=== PATIENT | female | born 1960 | race Caucasian/White ===

== ENCOUNTER 2017-08-10 08:25 | Outpatient (CLI) | payer MEDICARE, MEDICAID ==
[~2017-08-10 08:25] MED LIST: ASPI81TA52 PO; ATI1T PO; CARV3.122 PO; CLON-529 PO; FENO48TA15 PO; FLEC50TA; GABA100C PO; HYDR-3686 PO; INSU100V11 SQ; INSU100V9 SQ; LISI2.5T2 PO; METF500T4 PO; NITR0.4T SL; ONDA4TAB12 PO; OXYC-150 PO; PALI6TAB PO; ROSU10TA PO; TRAZ-146 PO; VENL150C2 PO
== END 2017-08-10 09:36 | disposition home or self-care (01) ==
LOC: WOUND CARE 08:25 → EDSTATUS 08:30 → WOUND CARE 09:36
PROVIDERS: ATTEND Surgery
DX: E11.621 Type 2 diabetes mellitus with foot ulcer (principal); L97.511 Non-pressure chronic ulcer of other part of right foot limited to breakdown of skin; E11.42 Type 2 diabetes mellitus with diabetic polyneuropathy; E11.69 Type 2 diabetes mellitus with other specified complication; M86.8X7 Other osteomyelitis, ankle and foot; I25.10 Atherosclerotic heart disease of native coronary artery without angina pectoris; I10 Essential (primary) hypertension; K21.9 Gastro-esophageal reflux disease without esophagitis; E66.9 Obesity, unspecified; E78.00 Pure hypercholesterolemia, unspecified; F41.9 Anxiety disorder, unspecified; F10.10 Alcohol abuse, uncomplicated; F31.9 Bipolar disorder, unspecified; F12.10 Cannabis abuse, uncomplicated; Z89.412 Acquired absence of left great toe; Z89.421 Acquired absence of other right toe(s); Z68.37 Body mass index [BMI] 37.0-37.9, adult; Z79.82 Long term (current) use of aspirin; Z79.84 Long term (current) use of oral hypoglycemic drugs; Z79.4 Long term (current) use of insulin; Z79.899 Other long term (current) drug therapy; Z85.07 Personal history of malignant neoplasm of pancreas; Z87.891 Personal history of nicotine dependence
CPT/HCPCS: 36416; 82948; 99211; A6021; A6206

== ENCOUNTER 2017-08-16 08:48 | Day surgery (SDC) | payer MEDICARE, MEDICAID ==
[~2017-08-16 08:48] MED LIST changes: -FENO48TA15 PO; -GABA100C PO
[2017-08-16] MEDS ORDERED: LIDOcaine 2% 5ml jelly ONE (09:49)
== END 2017-08-16 10:10 | disposition home or self-care (01) ==
LOC: WOUND CARE 08:48
PROVIDERS: ATTEND Surgery
DX: E11.621 Type 2 diabetes mellitus with foot ulcer (principal); L97.511 Non-pressure chronic ulcer of other part of right foot limited to breakdown of skin; E11.69 Type 2 diabetes mellitus with other specified complication; M86.8X7 Other osteomyelitis, ankle and foot; E11.42 Type 2 diabetes mellitus with diabetic polyneuropathy; I25.10 Atherosclerotic heart disease of native coronary artery without angina pectoris; I10 Essential (primary) hypertension; K21.9 Gastro-esophageal reflux disease without esophagitis; E66.9 Obesity, unspecified; E78.00 Pure hypercholesterolemia, unspecified; F10.10 Alcohol abuse, uncomplicated; F41.9 Anxiety disorder, unspecified; F31.9 Bipolar disorder, unspecified; F12.120 Cannabis abuse with intoxication, uncomplicated; Z89.412 Acquired absence of left great toe; Z89.421 Acquired absence of other right toe(s); Z68.37 Body mass index [BMI] 37.0-37.9, adult; Z79.82 Long term (current) use of aspirin; Z79.84 Long term (current) use of oral hypoglycemic drugs; Z79.4 Long term (current) use of insulin; Z79.899 Other long term (current) drug therapy; Z85.07 Personal history of malignant neoplasm of pancreas; Z87.891 Personal history of nicotine dependence
CPT/HCPCS: 36416; 82948; 97597; A6021; A6206

== ENCOUNTER 2017-08-23 08:10 | Day surgery (SDC) | payer MEDICARE, MEDICAID ==
[~2017-08-23 08:10] MED LIST changes: -FLEC50TA
[2017-08-23] MEDS ORDERED: LIDOcaine 2% 5ml jelly ONE (09:50)
== END 2017-08-23 10:23 | disposition home or self-care (01) ==
LOC: WOUND CARE 08:10
PROVIDERS: ATTEND Surgery
DX: E11.621 Type 2 diabetes mellitus with foot ulcer (principal); L97.511 Non-pressure chronic ulcer of other part of right foot limited to breakdown of skin; F10.10 Alcohol abuse, uncomplicated; I25.10 Atherosclerotic heart disease of native coronary artery without angina pectoris; F31.9 Bipolar disorder, unspecified; E66.9 Obesity, unspecified; I10 Essential (primary) hypertension; K21.9 Gastro-esophageal reflux disease without esophagitis; E11.42 Type 2 diabetes mellitus with diabetic polyneuropathy; F12.90 Cannabis use, unspecified, uncomplicated; Z89.412 Acquired absence of left great toe; Z68.37 Body mass index [BMI] 37.0-37.9, adult; Z79.4 Long term (current) use of insulin; Z85.9 Personal history of malignant neoplasm, unspecified; Z89.421 Acquired absence of other right toe(s)
CPT/HCPCS: 82948; 97597; A6021; A6206

== ENCOUNTER 2017-08-30 08:22 | Day surgery (SDC) | payer MEDICARE, MEDICAID ==
[2017-08-30] MEDS ORDERED: LIDOcaine 2% 5ml jelly ONE (09:57)
== END 2017-08-30 10:41 | disposition home or self-care (01) ==
LOC: WOUND CARE 08:22
PROVIDERS: ATTEND Surgery
DX: E11.621 Type 2 diabetes mellitus with foot ulcer (principal); L97.511 Non-pressure chronic ulcer of other part of right foot limited to breakdown of skin; E11.42 Type 2 diabetes mellitus with diabetic polyneuropathy; I25.10 Atherosclerotic heart disease of native coronary artery without angina pectoris; I10 Essential (primary) hypertension; K21.9 Gastro-esophageal reflux disease without esophagitis; E66.9 Obesity, unspecified; E11.69 Type 2 diabetes mellitus with other specified complication; M86.8X7 Other osteomyelitis, ankle and foot; E78.00 Pure hypercholesterolemia, unspecified; F10.10 Alcohol abuse, uncomplicated; F31.9 Bipolar disorder, unspecified; F41.9 Anxiety disorder, unspecified; F12.120 Cannabis abuse with intoxication, uncomplicated; Z89.412 Acquired absence of left great toe; Z89.421 Acquired absence of other right toe(s); Z68.37 Body mass index [BMI] 37.0-37.9, adult; Z79.4 Long term (current) use of insulin; Z79.82 Long term (current) use of aspirin; Z79.84 Long term (current) use of oral hypoglycemic drugs; Z79.899 Other long term (current) drug therapy; Z85.07 Personal history of malignant neoplasm of pancreas; Z87.891 Personal history of nicotine dependence
CPT/HCPCS: 36416; 82948; 97597; A6021

== ENCOUNTER 2017-09-01 22:53 | Emergency (ER) | payer MEDICARE, MEDICAID ==
[~2017-09-01] VITALS: Ht 182.9 cm; Wt 127.0 kg
[2017-09-01] MEDS ORDERED: erythromycin ophthalmic ointment 1gm tube EACHEYE ONE (23:10)
[2017-09-01] MEDS ORDERED: fluoroscein sod 10% (100mg/ml) 5ml vial IJ ONE (23:20)
[2017-09-01] MEDS ORDERED: proparacaine 0.5% ophthalmic drops 15ml EACHEYE ONE (23:25)
[2017-09-01 23:38] VITALS: BP 142/99
== END 2017-09-01 23:35 | disposition home or self-care (01) ==
LOC: ER 22:54
DX: S05.12XA Contusion of eyeball and orbital tissues, left eye, initial encounter (principal); S05.02XA Injury of conjunctiva and corneal abrasion without foreign body, left eye, initial encounter; G89.29 Other chronic pain; E11.9 Type 2 diabetes mellitus without complications; I10 Essential (primary) hypertension; E78.00 Pure hypercholesterolemia, unspecified; F31.9 Bipolar disorder, unspecified; Z88.1 Allergy status to other antibiotic agents; Z91.018 Allergy to other foods; Z79.82 Long term (current) use of aspirin; Z79.4 Long term (current) use of insulin; X58.XXXA Exposure to other specified factors, initial encounter; Y93.89 Activity, other specified; Y92.89 Other specified places as the place of occurrence of the external cause; Y99.8 Other external cause status
CPT/HCPCS: 99284

== ENCOUNTER 2017-09-06 08:15 | Day surgery (SDC) | payer MEDICARE, MEDICAID ==
[2017-09-06] MEDS ORDERED: LIDOcaine 2% 5ml jelly ONE (09:49)
[2017-09-09] MEDS ORDERED: LORA1TAB PO ×2 (14:22)
[2017-09-09] MEDS ORDERED: INSU100V11 SQ (14:22)
[2017-09-09] MEDS ORDERED: PALI9TAB PO (14:22)
[2017-09-09] MEDS ORDERED: DILT120C51 PO (14:22)
[2017-09-09] MEDS ORDERED: FENO145T19 PO (14:22)
== END 2017-09-06 10:54 | disposition home or self-care (01) ==
LOC: WOUND CARE 08:15
PROVIDERS: ATTEND Surgery
DX: E11.621 Type 2 diabetes mellitus with foot ulcer (principal); L97.511 Non-pressure chronic ulcer of other part of right foot limited to breakdown of skin; I25.10 Atherosclerotic heart disease of native coronary artery without angina pectoris; E66.9 Obesity, unspecified; I10 Essential (primary) hypertension; K21.9 Gastro-esophageal reflux disease without esophagitis; E11.42 Type 2 diabetes mellitus with diabetic polyneuropathy; F10.10 Alcohol abuse, uncomplicated; F31.9 Bipolar disorder, unspecified; F12.90 Cannabis use, unspecified, uncomplicated; Z89.412 Acquired absence of left great toe; Z68.37 Body mass index [BMI] 37.0-37.9, adult; Z79.4 Long term (current) use of insulin; Z85.9 Personal history of malignant neoplasm, unspecified; Z89.421 Acquired absence of other right toe(s)
CPT/HCPCS: 36416; 82948; 97597; A6021; A6206

== ENCOUNTER 2017-09-13 08:50 | Day surgery (SDC) | payer MEDICARE, MEDICAID ==
[~2017-09-13] VITALS: Ht 182.9 cm; Wt 125.4 kg
[~2017-09-13 08:50] MED LIST changes: -ATI1T PO; -CARV3.122 PO; +DILT120C51 PO; +FENO145T19 PO; +LORA1TAB PO; -ONDA4TAB12 PO; -OXYC-150 PO; -PALI6TAB PO; +PALI9TAB PO; +ceFAZolin inj. 3,000 MG in normal saline 100ml IV soln 100 ML IV ONE; +famotidine 20mg tablet PO ONE; +ringers solution, lacted 1,000 ML IV SCH
[2017-09-13] MEDS ORDERED: LIDOcaine 1% (10mg/ml) 2ml vial ONE (09:24)
[2017-09-13 09:30] VITALS: BP 164/107
[2017-09-13] MEDS ORDERED: ROSU10TA PO (09:43)
[2017-09-13 10:40] LABS: BASOPHILS % (AUTO) 0.3 % (0-1); EOSINOPHILS # (AUTO) 0.7 X10'3 (0-0.9); EOSINOPHILS % (AUTO) 8.7 % (0-6); HEMATOCRIT 37.8 % (35.0-45.0); HEMOGLOBIN 12.7 g/dl (12.0-16.0); LYMPHOCYTES % (AUTO) 25.1 % (21-51); MEAN CORPUSCULAR HEMOGLOBIN 29.5 PG (27.0-31.0); MEAN CORPUSCULAR HGB CONC 33.6 % (33.0-36.5); MEAN CORPUSCULAR VOLUME 87.8 FL (78-98); MEAN PLATELET VOLUME 8.4 FL (7.4-10.4); MONOCYTES # (AUTO) 0.8 X10'3 (0-0.9); MONOCYTES % (AUTO) 9.6 % (2-12); NEUTROPHILS # (AUTO) 4.4 X10'3 (1.8-7.7); NEUTROPHILS % (AUTO) 56.3 % (42-75); PLATELET COUNT 428 X10'3 (140-440); RED BLOOD COUNT 4.31 X10'6 (4.20-5.60); RED CELL DISTRIBUTION WIDTH 14.5 % (11.5-14.5); WHITE BLOOD COUNT 7.8 X10'3 (4.5-11.0)
[2017-09-13 10:54] LABS: ALANINE AMINOTRANSFERASE 17 U/L (12-78); ALBUMIN 2.7 G/DL (3.4-5.0); ALBUMIN/GLOBULIN RATIO 0.8 (1.1-1.5); ALKALINE PHOSPHATASE 54 IU/L (46-116); ANION GAP 3 (8-16); ASPARTATE AMINO TRANSFERASE 16 U/L (10-37); BILIRUBIN,TOTAL 0.2 MG/DL (0.1-1.0); BLOOD UREA NITROGEN 19 MG/DL (7-18); CALCIUM 9.2 MG/DL (8.5-10.1); CHLORIDE 107 MMOL/L (99-107); GLUCOSE 199 MG/DL (70-104); POTASSIUM 4.5 MMOL/L (3.5-5.1); SODIUM 141 MMOL/L (135-145); TOTAL PROTEIN 6.3 G/DL (6.4-8.2); eGFR 58 ML/MIN
[2017-09-13] MEDS ORDERED: LIDOcaine 1% 30ml vial 30 ML ONE (11:23)
[2017-09-13] MEDS ORDERED: povidone-iodine 10% topical ointment 28.4gm TP ONE (11:23)
[2017-09-13] MEDS ORDERED: ringers solution, lacted 1,000 ML IV SCH (11:27)
[2017-09-13] MEDS ORDERED: ondansetron/PF 4mg/2ml inj IV PRN (11:30)
[2017-09-13] MEDS ORDERED: meperidine/PF 25mg/ml syringe IV PRN ×3 (11:30)
[2017-09-13] MEDS ORDERED: morphine 2 MG/ML inj. syringe IV PRN ×2 (11:30)
[2017-09-13] MEDS ORDERED: proCHLORperazine 10 MG/2 ml inj IV PRN (11:30)
[2017-09-13] MEDS ORDERED: fentaNYL/PF 50MCG/1 ML 2ML syringe ONE (11:30)
[2017-09-13] MEDS ORDERED: midazolam 2 mg/2 ml injection ONE ×2 (11:31)
[2017-09-13] MEDS ORDERED: LIDOcaine 2% (20mg/ml) 5ml vial ONE (11:35)
[2017-09-13] MEDS ORDERED: propofol inj 20 ML IV ONE (11:35)
[2017-09-13 11:42] LABS: PLATELET ESTIMATE NORMAL; TOTAL CELLS COUNTED 100
[2017-09-13 11:51] LABS: ACANTHOCYTES 1+; BURR CELLS 1+; SCHISTOCYTES FEW
[2017-09-13 11:52] LABS: ELLIPTOCYTES FEW
[2017-09-13 11:53] LABS: POIKILOCYTOSIS 2+
[2017-09-13 12:20] VITALS: BP 151/96
[2017-09-13 12:30] VITALS: BP 150/94
[2017-09-13 12:40] VITALS: BP 147/76
[2017-09-13 12:50] VITALS: BP 150/74
[2017-09-13 13:00] VITALS: BP 150/74
== END 2017-09-13 13:00 | disposition home or self-care (01) ==
LOC: PAS 08:50
PROVIDERS: ATTEND Surgery
DX: E11.69 Type 2 diabetes mellitus with other specified complication (principal); M86.9 Osteomyelitis, unspecified; I25.10 Atherosclerotic heart disease of native coronary artery without angina pectoris; I10 Essential (primary) hypertension; F32.9 Major depressive disorder, single episode, unspecified; Z85.07 Personal history of malignant neoplasm of pancreas; Z91.013 Allergy to seafood; Z88.1 Allergy status to other antibiotic agents; Z91.048 Other nonmedicinal substance allergy status; Z87.891 Personal history of nicotine dependence; E66.9 Obesity, unspecified; Z68.37 Body mass index [BMI] 37.0-37.9, adult
CPT/HCPCS: 28825; 36415; 80053; 82948; 85025; A4615; A6222; A6446; A6449; J0690; J2001; J2250; J2704; J3010; J3490; J7030; J7120; 88305; A7000

== ENCOUNTER 2017-09-20 08:15 | Outpatient (CLI) | payer MEDICARE, MEDICAID ==
[~2017-09-20 08:15] MED LIST changes: -ceFAZolin inj. 3,000 MG in normal saline 100ml IV soln 100 ML IV ONE; -famotidine 20mg tablet PO ONE; -ringers solution, lacted 1,000 ML IV SCH
[2017-09-20] MEDS ORDERED: mupirocin 2% ointment 22GM ONE (10:22)
== END 2017-09-20 10:35 | disposition home or self-care (01) ==
LOC: WOUND CARE 08:15 → EDSTATUS 08:30 → WOUND CARE 10:35
PROVIDERS: ATTEND Surgery
DX: E11.621 Type 2 diabetes mellitus with foot ulcer (principal); L97.511 Non-pressure chronic ulcer of other part of right foot limited to breakdown of skin; I25.10 Atherosclerotic heart disease of native coronary artery without angina pectoris; E66.9 Obesity, unspecified; I10 Essential (primary) hypertension; K21.9 Gastro-esophageal reflux disease without esophagitis; E11.42 Type 2 diabetes mellitus with diabetic polyneuropathy; F10.10 Alcohol abuse, uncomplicated; F31.9 Bipolar disorder, unspecified; F12.90 Cannabis use, unspecified, uncomplicated; Z89.412 Acquired absence of left great toe; Z68.37 Body mass index [BMI] 37.0-37.9, adult; Z79.4 Long term (current) use of insulin; Z85.9 Personal history of malignant neoplasm, unspecified; Z89.421 Acquired absence of other right toe(s)
CPT/HCPCS: 36416; 82948; 99215; A6222

== ENCOUNTER 2017-09-27 08:15 | Outpatient (CLI) | payer MEDICARE, MEDICAID | END 2017-09-27 09:34 | disposition home or self-care (01) | LOC: WOUND CARE 08:15 → EDSTATUS 08:30 → WOUND CARE 09:34 | PROVIDERS: ATTEND Surgery | DX: T81.89XD Other complications of procedures, not elsewhere classified, subsequent encounter (principal); E11.621 Type 2 diabetes mellitus with foot ulcer; L97.511 Non-pressure chronic ulcer of other part of right foot limited to breakdown of skin; E11.42 Type 2 diabetes mellitus with diabetic polyneuropathy; I25.10 Atherosclerotic heart disease of native coronary artery without angina pectoris; E66.9 Obesity, unspecified; I10 Essential (primary) hypertension; K21.9 Gastro-esophageal reflux disease without esophagitis; F10.10 Alcohol abuse, uncomplicated; F31.9 Bipolar disorder, unspecified; F12.90 Cannabis use, unspecified, uncomplicated; Z89.412 Acquired absence of left great toe; Z68.37 Body mass index [BMI] 37.0-37.9, adult; Z79.4 Long term (current) use of insulin; Z85.9 Personal history of malignant neoplasm, unspecified; Z89.421 Acquired absence of other right toe(s); Y83.8 Other surgical procedures as the cause of abnormal reaction of the patient, or of later complication, without mention of misadventure at the time of the procedure | CPT/HCPCS: 36416; 82948; 99215; A6250 ==

== ENCOUNTER 2017-09-29 00:01 | Emergency (ER) | payer MEDICARE, MEDICAID ==
[~2017-09-29] VITALS: Ht 6038.7 cm; Wt 126.8 kg
[2017-09-29] MEDS ORDERED: ketorolac trometh inj. 60 MG/2 ML VIAL IM ONE (00:20)
[2017-09-29 00:48] LABS: BASOPHILS % (AUTO) 0.5 % (0-1); EOSINOPHILS # (AUTO) 0.6 X10'3 (0-0.9); EOSINOPHILS % (AUTO) 6.2 % (0-6); HEMATOCRIT 40.8 % (35.0-45.0); HEMOGLOBIN 13.4 g/dl (12.0-16.0); LYMPHOCYTES # (AUTO) 3.9 X10'3 (1.1-4.8); MEAN CORPUSCULAR HEMOGLOBIN 28.9 PG (27.0-31.0); MEAN CORPUSCULAR VOLUME 87.5 FL (78-98); MEAN PLATELET VOLUME 8.9 FL (7.4-10.4); MONOCYTES # (AUTO) 1.1 X10'3 (0-0.9); MONOCYTES % (AUTO) 11.5 % (2-12); NEUTROPHILS # (AUTO) 3.6 X10'3 (1.8-7.7); NEUTROPHILS % (AUTO) 38.8 % (42-75); RED BLOOD COUNT 4.66 X10'6 (4.20-5.60); RED CELL DISTRIBUTION WIDTH 13.6 % (11.5-14.5); WHITE BLOOD COUNT 9.2 X10'3 (4.5-11.0)
[2017-09-29 00:54] LABS: INR 0.9 INR; PROTHROMBIN TIME 9.5 SECONDS (9.0-12.0)
[2017-09-29 01:01] LABS: ANION GAP 5 (8-16); BLOOD UREA NITROGEN 21 MG/DL (7-18); BUN/CREATININE RATIO 16.4 (6.6-38.0); CALCIUM 9.5 MG/DL (8.5-10.1); CHLORIDE 103 MMOL/L (99-107); CREATININE 1.28 MG/DL (0.40-0.90); GLUCOSE 145 MG/DL (70-104); POTASSIUM 3.9 MMOL/L (3.5-5.1); SODIUM 141 MMOL/L (135-145); TOTAL CARBON DIOXIDE 32.7 MMOL/L (24-32); eGFR 43 ML/MIN
[2017-09-29 01:02] LABS: ALANINE AMINOTRANSFERASE 24 U/L (12-78); ALBUMIN 3.1 G/DL (3.4-5.0); ALBUMIN/GLOBULIN RATIO 0.8 (1.1-1.5); ALKALINE PHOSPHATASE 95 IU/L (46-116); ASPARTATE AMINO TRANSFERASE 14 U/L (10-37); BILIRUBIN,TOTAL 0.2 MG/DL (0.1-1.0); LIPASE 169 U/L (73-393)
[2017-09-29 01:06] LABS: PLATELET COUNT 435 X10'3 (140-440)
[2017-09-29 01:40] VITALS: BP 179/80
[2017-09-29 01:43] LABS: CLARITY,URINE CLEAR (Clear); COLOR,URINE YELLOW (Yellow); GLUCOSE, URINE 100 mg/dl (Neg); KETONES,URINE NEGATIVE (Neg); LEUKOCYTE ESTERASE ,URINE NEGATIVE (Neg); NITRITES, URINE NEGATIVE (Neg); OCCULT BLOOD,URINE NEGATIVE (Neg); PROTEIN,URINE >=300 mg/dl (Neg); UROBILINOGEN,URINE 0.2 E.U/dL (0.2-1.0)
[2017-09-29 01:50] LABS: UA COLLECTION TYPE CLN CATCH MIDSTREAM
[2017-09-29 01:55] LABS: BACTERIA,URINE FEW /HPF (Neg); MUCUS STRANDS NONE SEEN /LPF (Neg); RBC,URINE NONE SEEN /HPF (0-2); SQUAMOUS EPITHELIAL CELL,UR NONE SEEN /LPF (FEW); WBC,URINE 0-4 /HPF (0-4)
== END 2017-09-29 01:41 | disposition home or self-care (01) ==
LOC: ER 00:01
DX: K59.00 Constipation, unspecified (principal); E78.00 Pure hypercholesterolemia, unspecified; I10 Essential (primary) hypertension; E11.9 Type 2 diabetes mellitus without complications; F12.10 Cannabis abuse, uncomplicated; Z88.1 Allergy status to other antibiotic agents; Z91.018 Allergy to other foods; Z79.4 Long term (current) use of insulin; I25.10 Atherosclerotic heart disease of native coronary artery without angina pectoris
CPT/HCPCS: 36415; 74176; 80053; 81001; 83690; 85025; 85610; 96372; 99285; J1885

== ENCOUNTER 2017-10-11 10:19 | Outpatient (CLI) | payer MEDICARE, MEDICAID | END 2017-10-11 11:33 | disposition home or self-care (01) | LOC: WOUND CARE 10:19 | PROVIDERS: ATTEND Surgery | DX: T81.89XD Other complications of procedures, not elsewhere classified, subsequent encounter (principal); E11.621 Type 2 diabetes mellitus with foot ulcer; L97.511 Non-pressure chronic ulcer of other part of right foot limited to breakdown of skin; E11.42 Type 2 diabetes mellitus with diabetic polyneuropathy; I25.10 Atherosclerotic heart disease of native coronary artery without angina pectoris; E66.9 Obesity, unspecified; I10 Essential (primary) hypertension; K21.9 Gastro-esophageal reflux disease without esophagitis; F10.10 Alcohol abuse, uncomplicated; F31.9 Bipolar disorder, unspecified; F12.90 Cannabis use, unspecified, uncomplicated; Z89.412 Acquired absence of left great toe; Z68.37 Body mass index [BMI] 37.0-37.9, adult; Z79.4 Long term (current) use of insulin; Z85.9 Personal history of malignant neoplasm, unspecified; Z89.421 Acquired absence of other right toe(s); Y83.8 Other surgical procedures as the cause of abnormal reaction of the patient, or of later complication, without mention of misadventure at the time of the procedure | CPT/HCPCS: 36416; 82948; 99214 ==

== ENCOUNTER 2017-11-06 19:49 | Emergency (ER) | payer MEDICARE, MEDICAID ==
[~2017-11-06] VITALS: Ht 182.9 cm; Wt 127.5 kg
[~2017-11-06 19:49] MED LIST changes: -FENO145T19 PO; +FENO145T36 PO
[2017-11-06 19:56] VITALS: BP 154/86
== END 2017-11-06 22:49 | disposition home or self-care (01) ==
LOC: ER 19:50
DX: S60.221A Contusion of right hand, initial encounter (principal); E78.00 Pure hypercholesterolemia, unspecified; I10 Essential (primary) hypertension; E11.9 Type 2 diabetes mellitus without complications; G89.29 Other chronic pain; F12.10 Cannabis abuse, uncomplicated; Z79.4 Long term (current) use of insulin; W23.1XXA Caught, crushed, jammed, or pinched between stationary objects, initial encounter; Y93.G3 Activity, cooking and baking; Y92.89 Other specified places as the place of occurrence of the external cause; Y99.8 Other external cause status
CPT/HCPCS: 29125; 73130; 99284

== ENCOUNTER 2017-11-29 10:05 | Day surgery (SDC) | payer MEDICARE, MEDICAID ==
[2017-11-29] MEDS ORDERED: CLON-529 PO (10:29)
[2017-11-29] MEDS ORDERED: LORA1TAB PO (10:30)
[2017-11-29] MEDS ORDERED: LAMO25TA94 PO (10:31)
[2017-12-01] MEDS ORDERED: OXYC-150 PO (15:14)
== END 2017-11-29 10:58 | disposition home or self-care (01) ==
LOC: WOUND CARE 10:05
PROVIDERS: ATTEND Surgery
DX: E11.621 Type 2 diabetes mellitus with foot ulcer (principal); L97.511 Non-pressure chronic ulcer of other part of right foot limited to breakdown of skin; E11.42 Type 2 diabetes mellitus with diabetic polyneuropathy; E11.65 Type 2 diabetes mellitus with hyperglycemia; I25.10 Atherosclerotic heart disease of native coronary artery without angina pectoris; E66.9 Obesity, unspecified; I10 Essential (primary) hypertension; K21.9 Gastro-esophageal reflux disease without esophagitis; F10.10 Alcohol abuse, uncomplicated; F31.9 Bipolar disorder, unspecified; F12.90 Cannabis use, unspecified, uncomplicated; Z89.412 Acquired absence of left great toe; Z68.37 Body mass index [BMI] 37.0-37.9, adult; Z79.4 Long term (current) use of insulin; Z85.9 Personal history of malignant neoplasm, unspecified; Z89.421 Acquired absence of other right toe(s); Y83.8 Other surgical procedures as the cause of abnormal reaction of the patient, or of later complication, without mention of misadventure at the time of the procedure
CPT/HCPCS: 36416; 82948; 97597; A6021; A6206; A6212

== ENCOUNTER 2018-01-08 04:20 | Emergency (ER) | payer MEDICARE, MEDICAID ==
[~2018-01-08] VITALS: Ht 182.9 cm; Wt 127.3 kg
[~2018-01-08 04:20] MED LIST changes: +ENOX40DI11 SQ; +LAMO25TA94 PO; -METF500T4 PO; +METF500T6 PO; +OXYC-150 PO; -TRAZ-146 PO
[2018-01-08] MEDS ORDERED: normal saline 1000ML IV soln IVB ONE (04:40)
[2018-01-08 04:55] LABS: BASOPHILS # (AUTO) 0.1 X10'3 (0-0.2); BASOPHILS % (AUTO) 0.8 % (0-1); EOSINOPHILS # (AUTO) 0.5 X10'3 (0-0.9); EOSINOPHILS % (AUTO) 5.6 % (0-6); HEMATOCRIT 41.9 % (35.0-45.0); HEMOGLOBIN 13.9 g/dl (12.0-16.0); LYMPHOCYTES # (AUTO) 3.5 X10'3 (1.1-4.8); MEAN CORPUSCULAR HEMOGLOBIN 29.4 PG (27.0-31.0); MEAN CORPUSCULAR HGB CONC 33.2 % (33.0-36.5); MEAN CORPUSCULAR VOLUME 88.7 FL (78-98); MEAN PLATELET VOLUME 8.8 FL (7.4-10.4); MONOCYTES % (AUTO) 10.6 % (2-12); NEUTROPHILS # (AUTO) 4.6 X10'3 (1.8-7.7); PLATELET COUNT 400 X10'3 (140-440); RED BLOOD COUNT 4.72 X10'6 (4.20-5.60); RED CELL DISTRIBUTION WIDTH 14.8 % (11.5-14.5); WHITE BLOOD COUNT 9.8 X10'3 (4.5-11.0)
[2018-01-08] MEDS ORDERED: LORazepam 2 mg/ml vial IV ONE (04:55)
[2018-01-08 05:07] LABS: PARTIAL THROMBOPLASTIN TIME 26 SECONDS (22-32); PROTHROMBIN TIME 9.9 SECONDS (9.0-12.0)
[2018-01-08 05:10] LABS: ALANINE AMINOTRANSFERASE 20 U/L (12-78); ALBUMIN/GLOBULIN RATIO 0.7 (1.1-1.5); ALKALINE PHOSPHATASE 91 IU/L (46-116); ANION GAP 4 (8-16); ASPARTATE AMINO TRANSFERASE 17 U/L (10-37); BILIRUBIN,TOTAL 0.2 MG/DL (0.1-1.0); BLOOD UREA NITROGEN 22 MG/DL (7-18); BUN/CREATININE RATIO 17.7 (6.6-38.0); CALCIUM 9.6 MG/DL (8.5-10.1); CHLORIDE 107 MMOL/L (99-107); CREATININE 1.24 MG/DL (0.40-0.90); ETHANOL < 0.010 GM/DL (0.0-0.010); GLUCOSE 135 MG/DL (70-104); POTASSIUM 3.8 MMOL/L (3.5-5.1); SODIUM 141 MMOL/L (135-145); TOTAL CARBON DIOXIDE 30.1 MMOL/L (24-32); TOTAL PROTEIN 7.1 G/DL (6.4-8.2); eGFR 45 ML/MIN
[2018-01-08] MEDS ORDERED: diltiazem 5mg/ml 5ml inj. IV ONE (05:25)
[2018-01-08 05:48] LABS: URINE AMPHETAMINE SCREEN NEGATIVE (Neg); URINE BARBITUATE SCREEN NEGATIVE (Neg); URINE BENZODIAZEPINES SCREEN NEGATIVE (Neg); URINE CANNABINOID SCREEN NEGATIVE (Neg); URINE COCAINE SCREEN NEGATIVE (Neg); URINE METHADONE SCREEN NEGATIVE (Neg); URINE OPIATE SCREEN NEGATIVE (Neg); URINE PHENCYCLIDINE SCREEN NEGATIVE (Neg)
[2018-01-08 06:07] VITALS: BP 146/83
== END 2018-01-08 06:13 | disposition home or self-care (01) ==
LOC: ER 04:20
DX: R00.2 Palpitations (principal); E78.00 Pure hypercholesterolemia, unspecified; I10 Essential (primary) hypertension; E11.9 Type 2 diabetes mellitus without complications; G89.29 Other chronic pain; I47.1 Supraventricular tachycardia; Z79.4 Long term (current) use of insulin; Z79.899 Other long term (current) drug therapy; Z79.82 Long term (current) use of aspirin; Z88.8 Allergy status to other drugs, medicaments and biological substances
CPT/HCPCS: 36415; 71045; 80053; 80305; 80320; 84484; 85025; 85610; 85730; 93005; 96374; 99285; J2060; J7030; J3490

== ENCOUNTER 2018-04-16 14:52 | Emergency (ER) | payer MEDICARE, MEDICAID ==
[~2018-04-16] VITALS: Ht 182.9 cm; Wt 121.0 kg
[~2018-04-16 14:52] MED LIST changes: -CLON-529 PO; -ENOX40DI11 SQ; +METF-950 PO; -METF500T6 PO; -NITR0.4T SL; -OXYC-150 PO
[2018-04-16 15:06] VITALS: BP 161/95
[2018-04-16] MEDS ORDERED: ketorolac trometh. 30mg/ml inj. IM ONE (15:35)
== END 2018-04-16 16:05 | disposition home or self-care (01) ==
LOC: ER 14:54
DX: S46.911A Strain of unspecified muscle, fascia and tendon at shoulder and upper arm level, right arm, initial encounter (principal); S54.01XA Injury of ulnar nerve at forearm level, right arm, initial encounter; F12.90 Cannabis use, unspecified, uncomplicated; E78.00 Pure hypercholesterolemia, unspecified; I10 Essential (primary) hypertension; E11.9 Type 2 diabetes mellitus without complications; G89.29 Other chronic pain; Z98.890 Other specified postprocedural states; Z88.1 Allergy status to other antibiotic agents; Z91.018 Allergy to other foods; Z79.82 Long term (current) use of aspirin; Z79.899 Other long term (current) drug therapy; X50.1XXA Overexertion from prolonged static or awkward postures, initial encounter; Y93.89 Activity, other specified; Y92.89 Other specified places as the place of occurrence of the external cause; Y99.9 Unspecified external cause status
CPT/HCPCS: 99282; A4565; J1885

== ENCOUNTER 2018-04-20 07:10 | Day surgery (SDC) | payer MEDICARE, MEDICAID ==
[2018-04-14 16:14] LABS: BASOPHILS % (AUTO) 0.1 % (0-1); EOSINOPHILS # (AUTO) 0.4 X10'3 (0-0.9); EOSINOPHILS % (AUTO) 5.9 % (0-6); LYMPHOCYTES # (AUTO) 2.2 X10'3 (1.1-4.8); LYMPHOCYTES % (AUTO) 29.1 % (21-51); MEAN CORPUSCULAR HEMOGLOBIN 29.3 PG (27.0-31.0); MEAN CORPUSCULAR HGB CONC 32.9 % (33.0-36.5); MEAN PLATELET VOLUME 8.6 FL (7.4-10.4); MONOCYTES # (AUTO) 0.7 X10'3 (0-0.9); MONOCYTES % (AUTO) 9.4 % (2-12); NEUTROPHILS # (AUTO) 4.2 X10'3 (1.8-7.7); NEUTROPHILS % (AUTO) 55.5 % (42-75); PRE OP HEMATOCRIT 38.5 % (35.0-45.0); PRE OP HEMOGLOBIN 12.7 g/dL (12.0-16.0); PRE OP PLATELET COUNT 429 X10'3 (140-440); RED BLOOD COUNT 4.33 X10'6 (4.20-5.60); RED CELL DISTRIBUTION WIDTH 14.9 % (11.5-14.5)
[2018-04-14 16:16] LABS: CLARITY,URINE Clear (Clear); COLOR,URINE Yellow (Yellow); GLUCOSE, URINE >=1000 mg/dl (Neg); KETONES,URINE Negative (Neg); LEUKOCYTE ESTERASE ,URINE Negative (Neg); NITRITES, URINE Negative (Neg); OCCULT BLOOD,URINE Negative (Neg); PH,URINE 5.5 (4.8-8.0); PROTEIN,URINE 100 mg/dl (Neg)
[2018-04-14 16:17] LABS: UA COLLECTION TYPE NON-SPECIFIED
[2018-04-14 16:28] LABS: ALBUMIN 2.9 G/DL (3.4-5.0); ALBUMIN/GLOBULIN RATIO 0.8 (1.1-1.5); ALKALINE PHOSPHATASE 82 IU/L (46-116); BLOOD UREA NITROGEN 22 MG/DL (7-18); BUN/CREATININE RATIO 17.7 (6.6-38.0); CALCIUM 9.6 MG/DL (8.5-10.1); CHLORIDE 103 MMOL/L (99-107); CREATININE 1.24 MG/DL (0.40-0.90); PRE OP ALT 23 U/L (30-65); PRE OP ANION GAP 5 (8-16); PRE OP AST 15 U/L (10-37); PRE OP BILIRUB, TOTAL 0.2 MG/DL (0.0-1.0); PRE OP POTASSIUM 4.6 MMOL/L (3.4-5.1); PRE OP SODIUM 137 MMOL/L (135-145); TOTAL CARBON DIOXIDE 29.5 MMOL/L (24-32); TOTAL PROTEIN 6.5 G/DL (6.4-8.2); eGFR 45 ML/MIN
[2018-04-14 16:31] LABS: PRE OP GLUCOSE 308 MG/DL (70-104)
[2018-04-14 16:33] LABS: BACTERIA,URINE NONE SEEN /HPF (Neg); MUCUS STRANDS NONE SEEN /LPF (Neg); RBC,URINE NONE SEEN /HPF (0-2); SQUAMOUS EPITHELIAL CELL,UR NONE SEEN /LPF (FEW); WBC,URINE NONE SEEN /HPF (0-4)
[~2018-04-20] VITALS: Ht 182.9 cm; Wt 127.3 kg
[2018-04-20] VITALS (7 sets, daily range): BP systolic 117–130; BP diastolic 64–73
[~2018-04-20 07:10] MED LIST changes: +Cefazolin 2GM/50ML dext iso,osmotic IVPB IV ONE; +VANCOMYCIN INJ 1000 MG in NORMAL SALINE 250ml IV.SOLN IV ONE; +famotidine 20mg tablet PO ONE; +ringers solution, lacted 1,000 ML IV SCH
[2018-04-20] MEDS ORDERED: LIDOcaine 1% (10mg/ml) 2ml vial ONE (07:39)
[2018-04-20] MEDS ORDERED: ringers solution, lacted 1,000 ML IV SCH (08:19)
[2018-04-20] MEDS ORDERED: proCHLORperazine 10 MG/2 ml inj IV PRN (08:20)
[2018-04-20] MEDS ORDERED: ondansetron/PF 4mg/2ml inj IV PRN (08:20)
[2018-04-20] MEDS ORDERED: morphine 4 MG/ML inj SYRINge IV PRN ×2 (08:20)
[2018-04-20] MEDS ORDERED: meperidine/PF 25mg/ml syringe IV PRN ×3 (08:20)
[2018-04-20] MEDS ORDERED: BUPIVAcaine/PF 2.5mg/ml (0.25%) 10ml vial ONE (08:47)
[2018-04-20] MEDS ORDERED: desflurane 240ml liquid inh. IH ONE (09:21)
[2018-04-20] MEDS ORDERED: dexamethasone sod phosphate 10mg/ml inj ONE (09:21)
[2018-04-20] MEDS ORDERED: midazolam 2 mg/2 ml injection ONE (09:26)
[2018-04-20] MEDS ORDERED: fentaNYL/PF 50MCG/1 ML 2ML syringe ONE (09:26)
[2018-04-20] MEDS ORDERED: propofol inj 20 ML IV ONE (09:28)
[2018-04-20] MEDS ORDERED: LIDOcaine 2% (20mg/ml) 5ml vial ONE (09:28)
[2018-04-20] MEDS ORDERED: ondansetron/PF 4mg/2ml inj ONE (10:41)
== END 2018-04-20 11:33 | disposition home or self-care (01) ==
LOC: PAS 07:10
PROVIDERS: ATTEND Orthopaedic Surgery
DX: T84.84XA Pain due to internal orthopedic prosthetic devices, implants and grafts, initial encounter (principal); G89.18 Other acute postprocedural pain; Y83.8 Other surgical procedures as the cause of abnormal reaction of the patient, or of later complication, without mention of misadventure at the time of the procedure; Y92.89 Other specified places as the place of occurrence of the external cause; E11.59 Type 2 diabetes mellitus with other circulatory complications; E78.5 Hyperlipidemia, unspecified; E66.01 Morbid (severe) obesity due to excess calories; M17.11 Unilateral primary osteoarthritis, right knee; F31.9 Bipolar disorder, unspecified; I10 Essential (primary) hypertension; G47.33 Obstructive sleep apnea (adult) (pediatric); I44.0 Atrioventricular block, first degree; E78.00 Pure hypercholesterolemia, unspecified; Z79.84 Long term (current) use of oral hypoglycemic drugs; Z87.891 Personal history of nicotine dependence; Z90.81 Acquired absence of spleen; Z85.07 Personal history of malignant neoplasm of pancreas; Z90.411 Acquired partial absence of pancreas; Z79.01 Long term (current) use of anticoagulants; Z92.21 Personal history of antineoplastic chemotherapy; Z86.79 Personal history of other diseases of the circulatory system; Z79.82 Long term (current) use of aspirin; Z79.4 Long term (current) use of insulin; Z88.1 Allergy status to other antibiotic agents; Z91.013 Allergy to seafood; Z68.38 Body mass index [BMI] 38.0-38.9, adult; Z91.018 Allergy to other foods; Z98.1 Arthrodesis status; Z89.432 Acquired absence of left foot; Z79.899 Other long term (current) drug therapy; Z98.890 Other specified postprocedural states; Z83.3 Family history of diabetes mellitus; Z80.3 Family history of malignant neoplasm of breast; Z82.49 Family history of ischemic heart disease and other diseases of the circulatory system; Z83.79 Family history of other diseases of the digestive system
CPT/HCPCS: 20680; 36415; 80053; 81001; 82948; 85025; 85610; 85730; 93005; A6222; A6449; J0690; J1100; J2001; J2250; J2405; J2704; J3010; J3370; J3490; J7120; A7000

== ENCOUNTER 2018-05-24 22:30 | Inpatient (IN) | payer MEDICARE, MEDICAID ==
[~2018-05-24] VITALS: Ht 182.9 cm; Wt 128.4 kg
[~2018-05-24 22:30] MED LIST changes: +CLON0.1T20 PO; -Cefazolin 2GM/50ML dext iso,osmotic IVPB IV ONE; +DOXE3TAB3 PO; +METF-438 PO; -VANCOMYCIN INJ 1000 MG in NORMAL SALINE 250ml IV.SOLN IV ONE; +VENL150C58 PO; -famotidine 20mg tablet PO ONE; -ringers solution, lacted 1,000 ML IV SCH
[2018-05-25 02:30] VITALS: BP 107/50
[2018-05-25] MEDS ORDERED: LORazepam 1 MG tablet PO ONE (03:00)
[2018-05-25] MEDS ORDERED: acetaminophen 325mg tablet PO PRN ×2 (03:05)
[2018-05-25] MEDS ORDERED: mag hydrox/Alum hydrox/simeth 30ml oral suspension PO PRN (03:05)
[2018-05-25] MEDS ORDERED: magnesium hydroxide 30ml (MOM) UD suspension PO PRN (03:05)
[2018-05-25] MEDS ORDERED: hydrOXYzine 25 MG tablet PO PRN (04:00)
[2018-05-25] MEDS ORDERED: insulin Lispro (HumaLOG) vial - multi-dose SQ SCH (07:30)
[2018-05-25] MEDS ORDERED: non-formulary drug (Rosuvastatin Calcium* (Crestor*) 20 MG) PO SCH (08:00)
[2018-05-25] MEDS ORDERED: LORazepam 1 MG tablet PO SCH (08:00)
[2018-05-25] MEDS ORDERED: dextrose ORAL solution 15 GM/59 ML bottle PO PRN ×2 (08:00)
[2018-05-25] MEDS ORDERED: glucagon, human recombinant 1mg kit SUBCUT PRN (08:00)
[2018-05-25] MEDS ORDERED: MESSAGE TO PHARMACY PO ONE (08:00)
[2018-05-25] MEDS ORDERED: dextrose 50%-water 50ml dispensing syringe IV PRN ×2 (08:00)
[2018-05-25 08:06] VITALS: BP 134/64
[2018-05-25] MEDS: atorvastatin 10mg tablet PO SCH (08:17)
[2018-05-25] MEDS: cloNIDine 0.1 mg tablet PO SCH (08:18)
[2018-05-25] MEDS: aspirin 81mg tablet.DR PO SCH (08:18)
[2018-05-25] MEDS: metFORMIN 500mg tablet PO SCH ×2 (08:18→21:48)
[2018-05-25] MEDS: venlafaxine XR 75mg capsule (Q24H) PO SCH (08:18)
[2018-05-25] MEDS: diltiazem CD 120mg capsule (once-daily) PO SCH (08:18)
[2018-05-25] MEDS: insulin Lispro (HumaLOG) vial - multi-dose SQ SCH ×3 (08:34→17:59)
[2018-05-25 10:42] LABS: CHOL/HDL RATIO 2.5 (0.00-4.99); CHOLESTEROL 191 MG/DL (0-200); HDL CHOLESTEROL 76 MG/DL (35-60); LDL CHOLESTEROL 92 MG/DL (50-100); TRIGLYCERIDES 134 MG/DL (20-135)
[2018-05-25 20:00] VITALS: BP 147/78
[2018-05-25] MEDS ORDERED: lamoTRIgine 25mg tablet PO SCH (21:00)
[2018-05-25] MEDS ORDERED: ALPRAZolam 0.5mg tablet PO PRN (21:30)
[2018-05-25] MEDS: insulin glargine (Lantus) pen - multi-dose SQ SCH (21:43)
[2018-05-25] MEDS: PALIPERIDONE 3 MG TAB.ER.24 PO SCH (21:47)
[2018-05-25] MEDS: fenofibrate 145mg tablet PO SCH (21:47)
[2018-05-25] MEDS: lisinopril 2.5mg tablet PO SCH (21:48)
[2018-05-25] MEDS: lamoTRIgine 100mg tablet PO SCH (21:49)
[2018-05-25] MEDS: ALPRAZolam 0.5mg tablet PO SCH (21:49)
[2018-05-26 07:28] VITALS: BP 141/72
[2018-05-26] MEDS: atorvastatin 10mg tablet PO SCH (07:52)
[2018-05-26] MEDS: aspirin 81mg tablet.DR PO SCH (07:52)
[2018-05-26] MEDS: diltiazem CD 120mg capsule (once-daily) PO SCH (07:52)
[2018-05-26] MEDS: venlafaxine XR 75mg capsule (Q24H) PO SCH (07:52)
[2018-05-26] MEDS: metFORMIN 500mg tablet PO SCH ×2 (07:53→21:10)
[2018-05-26] MEDS: lamoTRIgine 25mg tablet PO SCH (07:53)
[2018-05-26] MEDS: cloNIDine 0.1 mg tablet PO SCH (07:53)
[2018-05-26] MEDS: insulin Lispro (HumaLOG) vial - multi-dose SQ SCH ×3 (08:19→20:21)
[2018-05-26 19:00] VITALS: BP 139/69
[2018-05-26] MEDS: insulin glargine (Lantus) pen - multi-dose SQ SCH (21:07)
[2018-05-26] MEDS: ALPRAZolam 0.5mg tablet PO SCH (21:09)
[2018-05-26] MEDS: lamoTRIgine 100mg tablet PO SCH (21:10)
[2018-05-26] MEDS: PALIPERIDONE 3 MG TAB.ER.24 PO SCH (21:10)
[2018-05-26] MEDS: fenofibrate 145mg tablet PO SCH (21:10)
[2018-05-26] MEDS: lisinopril 2.5mg tablet PO SCH (21:10)
[2018-05-27] MEDS: aspirin 81mg tablet.DR PO SCH (07:51)
[2018-05-27] MEDS: cloNIDine 0.1 mg tablet PO SCH (07:51)
[2018-05-27] MEDS: diltiazem CD 120mg capsule (once-daily) PO SCH (07:51)
[2018-05-27] MEDS: venlafaxine XR 75mg capsule (Q24H) PO SCH (07:51)
[2018-05-27] MEDS: atorvastatin 10mg tablet PO SCH (07:51)
[2018-05-27] MEDS: metFORMIN 500mg tablet PO SCH ×2 (07:52→21:32)
[2018-05-27] MEDS: lamoTRIgine 25mg tablet PO SCH (07:52)
[2018-05-27 08:00] VITALS: BP 167/83
[2018-05-27] MEDS: insulin Lispro (HumaLOG) vial - multi-dose SQ SCH ×3 (08:53→18:43)
[2018-05-27] MEDS ORDERED: polyethylene glycol 3350 17gm powd pack PO PRN (14:30)
[2018-05-27 20:00] VITALS: BP 138/57
[2018-05-27] MEDS: insulin glargine (Lantus) pen - multi-dose SQ SCH (21:30)
[2018-05-27] MEDS: ALPRAZolam 0.5mg tablet PO SCH (21:32)
[2018-05-27] MEDS: fenofibrate 145mg tablet PO SCH (21:32)
[2018-05-27] MEDS: lisinopril 2.5mg tablet PO SCH (21:32)
[2018-05-27] MEDS: lamoTRIgine 100mg tablet PO SCH (21:32)
[2018-05-27] MEDS: PALIPERIDONE 3 MG TAB.ER.24 PO SCH (21:32)
[2018-05-28] MEDS: metFORMIN 500mg tablet PO SCH ×2 (07:29→20:44)
[2018-05-28] MEDS: venlafaxine XR 75mg capsule (Q24H) PO SCH (07:29)
[2018-05-28] MEDS: atorvastatin 10mg tablet PO SCH (07:30)
[2018-05-28] MEDS: diltiazem CD 120mg capsule (once-daily) PO SCH (07:31)
[2018-05-28] MEDS: lamoTRIgine 25mg tablet PO SCH (07:31)
[2018-05-28] MEDS: cloNIDine 0.1 mg tablet PO SCH (07:32)
[2018-05-28] MEDS: aspirin 81mg tablet.DR PO SCH (07:32)
[2018-05-28 08:00] VITALS: BP 132/80
[2018-05-28] MEDS: insulin Lispro (HumaLOG) vial - multi-dose SQ SCH ×3 (08:35→18:08)
[2018-05-28 20:00] VITALS: BP 149/77
[2018-05-28] MEDS: insulin glargine (Lantus) pen - multi-dose SQ SCH (20:35)
[2018-05-28] MEDS: ALPRAZolam 0.5mg tablet PO SCH (20:43)
[2018-05-28] MEDS: lamoTRIgine 100mg tablet PO SCH (20:43)
[2018-05-28] MEDS: PALIPERIDONE 3 MG TAB.ER.24 PO SCH (20:43)
[2018-05-28] MEDS: fenofibrate 145mg tablet PO SCH (20:44)
[2018-05-28] MEDS: lisinopril 2.5mg tablet PO SCH (20:47)
[2018-05-29 08:00] VITALS: BP 147/82
[2018-05-29] MEDS: atorvastatin 10mg tablet PO SCH (08:00)
[2018-05-29] MEDS: aspirin 81mg tablet.DR PO SCH (08:00)
[2018-05-29] MEDS: diltiazem CD 120mg capsule (once-daily) PO SCH (08:00)
[2018-05-29] MEDS: venlafaxine XR 75mg capsule (Q24H) PO SCH (08:00)
[2018-05-29] MEDS: cloNIDine 0.1 mg tablet PO SCH (08:00)
[2018-05-29] MEDS: metFORMIN 500mg tablet PO SCH ×2 (08:00→20:55)
[2018-05-29] MEDS: lamoTRIgine 25mg tablet PO SCH (08:01)
[2018-05-29] MEDS: insulin Lispro (HumaLOG) vial - multi-dose SQ SCH ×3 (08:34→18:11)
[2018-05-29 20:07] VITALS: BP 146/80
[2018-05-29] MEDS: fenofibrate 145mg tablet PO SCH (20:55)
[2018-05-29] MEDS: lisinopril 2.5mg tablet PO SCH (20:55)
[2018-05-29] MEDS: PALIPERIDONE 3 MG TAB.ER.24 PO SCH (20:55)
[2018-05-29] MEDS: lamoTRIgine 100mg tablet PO SCH (20:56)
[2018-05-29] MEDS: ALPRAZolam 0.5mg tablet PO SCH (20:56)
[2018-05-29] MEDS: insulin glargine (Lantus) pen - multi-dose SQ SCH (21:07)
[2018-05-30] MEDS: metFORMIN 500mg tablet PO SCH ×2 (07:49→20:30)
[2018-05-30] MEDS: lamoTRIgine 25mg tablet PO SCH (07:50)
[2018-05-30] MEDS: atorvastatin 10mg tablet PO SCH (07:50)
[2018-05-30] MEDS: diltiazem CD 120mg capsule (once-daily) PO SCH (07:50)
[2018-05-30] MEDS: aspirin 81mg tablet.DR PO SCH (07:50)
[2018-05-30] MEDS: venlafaxine XR 75mg capsule (Q24H) PO SCH (07:51)
[2018-05-30] MEDS: cloNIDine 0.1 mg tablet PO SCH (07:51)
[2018-05-30 08:00] VITALS: BP 180/95
[2018-05-30] MEDS: insulin Lispro (HumaLOG) vial - multi-dose SQ SCH ×3 (08:39→17:57)
[2018-05-30 19:59] VITALS: BP 142/64
[2018-05-30] MEDS: fenofibrate 145mg tablet PO SCH (20:30)
[2018-05-30] MEDS: lisinopril 2.5mg tablet PO SCH (20:30)
[2018-05-30] MEDS: PALIPERIDONE 3 MG TAB.ER.24 PO SCH (20:30)
[2018-05-30] MEDS: lamoTRIgine 100mg tablet PO SCH (20:31)
[2018-05-30] MEDS: ALPRAZolam 0.5mg tablet PO SCH (20:31)
[2018-05-30] MEDS: insulin glargine (Lantus) pen - multi-dose SQ SCH (20:33)
[2018-05-31 07:47] VITALS: BP 130/66
[2018-05-31] MEDS: lamoTRIgine 25mg tablet PO SCH (07:49)
[2018-05-31] MEDS: cloNIDine 0.1 mg tablet PO SCH (07:49)
[2018-05-31] MEDS: venlafaxine XR 75mg capsule (Q24H) PO SCH (07:50)
[2018-05-31] MEDS: aspirin 81mg tablet.DR PO SCH (07:51)
[2018-05-31] MEDS: atorvastatin 10mg tablet PO SCH (07:51)
[2018-05-31] MEDS: diltiazem CD 120mg capsule (once-daily) PO SCH (07:52)
[2018-05-31] MEDS: metFORMIN 500mg tablet PO SCH (07:52)
[2018-05-31] MEDS: insulin Lispro (HumaLOG) vial - multi-dose SQ SCH (08:38)
[2018-05-31] MEDS ORDERED: LAMO100T89 PO (09:31)
[2018-05-31] MEDS ORDERED: ALPR1TAB7 PO (09:31)
[2018-05-31] MEDS ORDERED: LAMO25TA PO (09:31)
== END 2018-05-31 10:50 | disposition home or self-care (01) | DRG 885 ==
LOC: ADULT MH 22:30
PROVIDERS: ADMIT Psychiatry & Neurology Psychiatry; ATTEND Psychiatry & Neurology Psychiatry
PROC: 5A09457 Assistance with Respiratory Ventilation, 24-96 Consecutive Hours, Continuous Positive Airway Pressure (ICD-10-PCS; principal; 2018-05-26)
DX: F31.81 Bipolar II disorder (principal); R45.851 Suicidal ideations; Z79.4 Long term (current) use of insulin; E78.5 Hyperlipidemia, unspecified; F43.12 Post-traumatic stress disorder, chronic; G47.00 Insomnia, unspecified; E66.9 Obesity, unspecified; E11.9 Type 2 diabetes mellitus without complications; H35.30 Unspecified macular degeneration; G47.33 Obstructive sleep apnea (adult) (pediatric); I10 Essential (primary) hypertension; K59.00 Constipation, unspecified; Z89.421 Acquired absence of other right toe(s); Z89.422 Acquired absence of other left toe(s); Z88.1 Allergy status to other antibiotic agents; Z91.013 Allergy to seafood; Z91.018 Allergy to other foods; Z79.899 Other long term (current) drug therapy; Z79.82 Long term (current) use of aspirin; Z85.07 Personal history of malignant neoplasm of pancreas; Z81.8 Family history of other mental and behavioral disorders; Z82.49 Family history of ischemic heart disease and other diseases of the circulatory system; Z83.3 Family history of diabetes mellitus; Z68.38 Body mass index [BMI] 38.0-38.9, adult
CPT/HCPCS: 36415; 80061; 82948; 83036; 84443; 87070; 94660; 94760; J1815

== ENCOUNTER 2018-11-17 01:01 | Emergency (ER) | payer MEDICARE, MEDICAID ==
[~2018-11-17] VITALS: Ht 182.9 cm; Wt 131.7 kg
[~2018-11-17 01:01] MED LIST changes: +ALPR1TAB7 PO; -DOXE3TAB3 PO; +LAMO100T89 PO; +LAMO25TA5 PO; -LORA1TAB PO; -METF-950 PO; -ROSU10TA PO; +ROSU10TA2 PO; -VENL150C2 PO
[2018-11-17 01:13] VITALS: BP 142/68
[2018-11-17] MEDS ORDERED: acetaminophen 325mg tablet PO ONE (02:50)
[2018-11-17] MEDS ORDERED: ibuprofen tablet 400 MG TABLET PO ONE (02:50)
[2018-11-17] MEDS ORDERED: neomy sulf/polymyx B sulf/HC otic soln 10ml LEFT EAR ONE ×2 (02:55→08:00)
== END 2018-11-17 03:32 | disposition home or self-care (01) ==
LOC: ER 01:03
DX: H66.92 Otitis media, unspecified, left ear (principal); E78.00 Pure hypercholesterolemia, unspecified; I10 Essential (primary) hypertension; G89.29 Other chronic pain; E11.9 Type 2 diabetes mellitus without complications; I25.10 Atherosclerotic heart disease of native coronary artery without angina pectoris; F12.90 Cannabis use, unspecified, uncomplicated; Z88.1 Allergy status to other antibiotic agents; Z98.890 Other specified postprocedural states; Z91.018 Allergy to other foods; Z79.4 Long term (current) use of insulin; Z79.899 Other long term (current) drug therapy
CPT/HCPCS: 99284

== ENCOUNTER 2019-04-09 03:52 | Emergency (ER) | payer MEDICARE, MEDICAID ==
[~2019-04-09] VITALS: Ht 182.9 cm; Wt 126.8 kg
[2019-04-09 03:59] VITALS: BP 154/86
[2019-04-09] MEDS ORDERED: acetaminophen 325mg tablet PO ONE (04:35)
[2019-04-09] MEDS ORDERED: ketorolac trometh. 30mg/ml inj. IM ONE (04:35)
[2019-04-09] MEDS ORDERED: ACET-2615 PO (04:36)
[2019-04-09] MEDS ORDERED: CYCL-1 PO (04:36)
[2019-04-09] MEDS ORDERED: MELO-100 PO (04:36)
== END 2019-04-09 04:50 | disposition home or self-care (01) ==
LOC: ER 03:53
DX: M54.5 Low back pain (principal); E78.00 Pure hypercholesterolemia, unspecified; I10 Essential (primary) hypertension; E11.9 Type 2 diabetes mellitus without complications; G89.29 Other chronic pain; F31.9 Bipolar disorder, unspecified; I25.10 Atherosclerotic heart disease of native coronary artery without angina pectoris; F12.90 Cannabis use, unspecified, uncomplicated; Z88.1 Allergy status to other antibiotic agents; Z98.890 Other specified postprocedural states; Z91.018 Allergy to other foods; Z79.82 Long term (current) use of aspirin; Z79.4 Long term (current) use of insulin; Z79.899 Other long term (current) drug therapy
CPT/HCPCS: 96372; 99283; J1885

== ENCOUNTER 2019-04-13 09:16 | Day surgery (SDC) | payer MEDICARE, MEDICAID ==
[~2019-04-13 09:16] MED LIST changes: +ACET-2615 PO; +CYCL-1 PO; +MELO-100 PO
[2019-04-13] MEDS ORDERED: LIDOcaine 2% 5ml jelly ONE (10:01)
== END 2019-04-13 10:32 | disposition home or self-care (01) ==
LOC: WOUND CARE 09:16
PROVIDERS: ATTEND Surgery
DX: E11.621 Type 2 diabetes mellitus with foot ulcer (principal); L97.512 Non-pressure chronic ulcer of other part of right foot with fat layer exposed; E11.40 Type 2 diabetes mellitus with diabetic neuropathy, unspecified; E11.65 Type 2 diabetes mellitus with hyperglycemia; I25.10 Atherosclerotic heart disease of native coronary artery without angina pectoris; I10 Essential (primary) hypertension; G89.29 Other chronic pain; E78.00 Pure hypercholesterolemia, unspecified; E78.5 Hyperlipidemia, unspecified; G47.30 Sleep apnea, unspecified; F32.9 Major depressive disorder, single episode, unspecified; F12.90 Cannabis use, unspecified, uncomplicated; Z79.4 Long term (current) use of insulin; Z79.82 Long term (current) use of aspirin; Z79.899 Other long term (current) drug therapy; Z98.890 Other specified postprocedural states; Z85.07 Personal history of malignant neoplasm of pancreas; Z87.891 Personal history of nicotine dependence
CPT/HCPCS: 36416; 82948; 97597; A4663; A6021; A6154

== ENCOUNTER 2019-04-18 09:02 | Day surgery (SDC) | payer MEDICARE, MEDICAID ==
[2019-04-18] MEDS ORDERED: LIDOcaine 2% 5ml jelly ONE (09:32)
== END 2019-04-18 10:50 | disposition home or self-care (01) ==
LOC: WOUND CARE 09:02
PROVIDERS: ATTEND Surgery
DX: E11.621 Type 2 diabetes mellitus with foot ulcer (principal); L97.512 Non-pressure chronic ulcer of other part of right foot with fat layer exposed; E11.40 Type 2 diabetes mellitus with diabetic neuropathy, unspecified; E11.65 Type 2 diabetes mellitus with hyperglycemia; I25.10 Atherosclerotic heart disease of native coronary artery without angina pectoris; I10 Essential (primary) hypertension; G89.29 Other chronic pain; E78.00 Pure hypercholesterolemia, unspecified; E78.5 Hyperlipidemia, unspecified; G47.30 Sleep apnea, unspecified; F32.9 Major depressive disorder, single episode, unspecified; F12.90 Cannabis use, unspecified, uncomplicated; Z79.4 Long term (current) use of insulin; Z79.82 Long term (current) use of aspirin; Z79.899 Other long term (current) drug therapy; Z98.890 Other specified postprocedural states; Z85.07 Personal history of malignant neoplasm of pancreas; Z87.891 Personal history of nicotine dependence
CPT/HCPCS: 36416; 82948; 97597; A6209; A4663; A6021; A6154

== ENCOUNTER 2019-04-25 09:00 | Day surgery (SDC) | payer MEDICARE, MEDICAID ==
[2019-04-25] MEDS ORDERED: LIDOcaine 2% 5ml jelly ONE (09:32)
== END 2019-04-25 10:21 | disposition home or self-care (01) ==
LOC: WOUND CARE 09:00
PROVIDERS: ATTEND Surgery
DX: E11.621 Type 2 diabetes mellitus with foot ulcer (principal); L97.512 Non-pressure chronic ulcer of other part of right foot with fat layer exposed; E11.40 Type 2 diabetes mellitus with diabetic neuropathy, unspecified; E11.65 Type 2 diabetes mellitus with hyperglycemia; I25.10 Atherosclerotic heart disease of native coronary artery without angina pectoris; I10 Essential (primary) hypertension; G89.29 Other chronic pain; E78.00 Pure hypercholesterolemia, unspecified; E78.5 Hyperlipidemia, unspecified; G47.30 Sleep apnea, unspecified; F32.9 Major depressive disorder, single episode, unspecified; F12.90 Cannabis use, unspecified, uncomplicated; Z79.4 Long term (current) use of insulin; Z79.82 Long term (current) use of aspirin; Z79.899 Other long term (current) drug therapy; Z98.890 Other specified postprocedural states; Z85.07 Personal history of malignant neoplasm of pancreas; Z87.891 Personal history of nicotine dependence
CPT/HCPCS: 36416; 82948; 97597; A4663; A6021; A6154

== ENCOUNTER 2019-05-02 08:38 | Day surgery (SDC) | payer MEDICARE, MEDICAID ==
[2019-05-02] MEDS ORDERED: LIDOcaine 2% 5ml jelly ONE (09:05)
== END 2019-05-02 10:20 | disposition home or self-care (01) ==
LOC: WOUND CARE 08:38
PROVIDERS: ATTEND Surgery
DX: E11.621 Type 2 diabetes mellitus with foot ulcer (principal); L97.512 Non-pressure chronic ulcer of other part of right foot with fat layer exposed; E11.40 Type 2 diabetes mellitus with diabetic neuropathy, unspecified; E11.65 Type 2 diabetes mellitus with hyperglycemia; I25.10 Atherosclerotic heart disease of native coronary artery without angina pectoris; I10 Essential (primary) hypertension; G89.29 Other chronic pain; E78.00 Pure hypercholesterolemia, unspecified; E78.5 Hyperlipidemia, unspecified; G47.30 Sleep apnea, unspecified; F32.9 Major depressive disorder, single episode, unspecified; F12.90 Cannabis use, unspecified, uncomplicated; Z79.4 Long term (current) use of insulin; Z79.82 Long term (current) use of aspirin; Z79.899 Other long term (current) drug therapy; Z98.890 Other specified postprocedural states; Z85.07 Personal history of malignant neoplasm of pancreas; Z87.891 Personal history of nicotine dependence
CPT/HCPCS: 36416; 82948; 97597; A6021; A6154

== ENCOUNTER 2019-05-09 08:30 | Outpatient (CLI) | payer MEDICARE, MEDICAID | END 2019-05-09 09:45 | disposition home or self-care (01) | LOC: WOUND CARE 08:30 → EDSTATUS 09:00 → WOUND CARE 09:45 | PROVIDERS: ATTEND Surgery | DX: E11.621 Type 2 diabetes mellitus with foot ulcer (principal); L97.512 Non-pressure chronic ulcer of other part of right foot with fat layer exposed; E11.40 Type 2 diabetes mellitus with diabetic neuropathy, unspecified; E11.65 Type 2 diabetes mellitus with hyperglycemia; I25.10 Atherosclerotic heart disease of native coronary artery without angina pectoris; I10 Essential (primary) hypertension; G89.29 Other chronic pain; E78.00 Pure hypercholesterolemia, unspecified; E78.5 Hyperlipidemia, unspecified; G47.30 Sleep apnea, unspecified; F32.9 Major depressive disorder, single episode, unspecified; F12.90 Cannabis use, unspecified, uncomplicated; Z79.4 Long term (current) use of insulin; Z79.82 Long term (current) use of aspirin; Z79.899 Other long term (current) drug therapy; Z98.890 Other specified postprocedural states; Z85.07 Personal history of malignant neoplasm of pancreas; Z87.891 Personal history of nicotine dependence | CPT/HCPCS: 36416; 82948; G0463; A4663; A6021; A6154 ==

== ENCOUNTER 2019-05-16 08:29 | Day surgery (SDC) | payer MEDICARE, MEDICAID ==
[~2019-05-16 08:29] MED LIST changes: -ACET-2615 PO; +CLON0.1T2 PO; -CLON0.1T20 PO; +LAMO100T PO; -LAMO100T89 PO
[2019-05-16] MEDS ORDERED: LIDOcaine/PRILOcaine 5gm cream TP ONE (09:12)
== END 2019-05-16 10:45 | disposition home or self-care (01) ==
LOC: WOUND CARE 08:29
PROVIDERS: ATTEND Surgery
DX: E11.621 Type 2 diabetes mellitus with foot ulcer (principal); L97.512 Non-pressure chronic ulcer of other part of right foot with fat layer exposed; E11.40 Type 2 diabetes mellitus with diabetic neuropathy, unspecified; E11.65 Type 2 diabetes mellitus with hyperglycemia; I25.10 Atherosclerotic heart disease of native coronary artery without angina pectoris; I10 Essential (primary) hypertension; G89.29 Other chronic pain; E78.00 Pure hypercholesterolemia, unspecified; E78.5 Hyperlipidemia, unspecified; G47.30 Sleep apnea, unspecified; F32.9 Major depressive disorder, single episode, unspecified; F12.90 Cannabis use, unspecified, uncomplicated; Z79.4 Long term (current) use of insulin; Z79.82 Long term (current) use of aspirin; Z79.899 Other long term (current) drug therapy; Z98.890 Other specified postprocedural states; Z85.07 Personal history of malignant neoplasm of pancreas; Z87.891 Personal history of nicotine dependence
CPT/HCPCS: 36416; 82948; A4663; A6021; A6154

== ENCOUNTER 2019-05-23 08:00 | Day surgery (SDC) | payer MEDICARE, MEDICAID ==
[~2019-05-23 08:00] MED LIST changes: -CLON0.1T2 PO; +CLON0.1T20 PO; -LAMO100T PO; +LAMO100T89 PO
== END 2019-05-23 10:40 | disposition home or self-care (01) ==
LOC: WOUND CARE 08:00
PROVIDERS: ATTEND Surgery
DX: E11.621 Type 2 diabetes mellitus with foot ulcer (principal); L97.512 Non-pressure chronic ulcer of other part of right foot with fat layer exposed; S90.414A Abrasion, right lesser toe(s), initial encounter; E11.40 Type 2 diabetes mellitus with diabetic neuropathy, unspecified; E11.65 Type 2 diabetes mellitus with hyperglycemia; I25.10 Atherosclerotic heart disease of native coronary artery without angina pectoris; I10 Essential (primary) hypertension; G89.29 Other chronic pain; E78.00 Pure hypercholesterolemia, unspecified; E78.5 Hyperlipidemia, unspecified; G47.30 Sleep apnea, unspecified; F32.9 Major depressive disorder, single episode, unspecified; F12.90 Cannabis use, unspecified, uncomplicated; Z79.4 Long term (current) use of insulin; Z79.82 Long term (current) use of aspirin; Z79.899 Other long term (current) drug therapy; Z98.890 Other specified postprocedural states; Z85.07 Personal history of malignant neoplasm of pancreas; Z87.891 Personal history of nicotine dependence; X58.XXXA Exposure to other specified factors, initial encounter; Y93.89 Activity, other specified; Y92.89 Other specified places as the place of occurrence of the external cause; Y99.8 Other external cause status
CPT/HCPCS: 36416; 82948; 97597; A4663; A6021; A6154

== ENCOUNTER 2019-05-31 07:50 | Day surgery (SDC) | payer MEDICARE, MEDICAID ==
[2019-05-31] MEDS ORDERED: LIDOcaine/PRILOcaine 5gm cream TP ONE (09:07)
== END 2019-05-31 10:20 | disposition home or self-care (01) ==
LOC: WOUND CARE 07:50
PROVIDERS: ATTEND Surgery
DX: E11.621 Type 2 diabetes mellitus with foot ulcer (principal); L97.512 Non-pressure chronic ulcer of other part of right foot with fat layer exposed; E11.40 Type 2 diabetes mellitus with diabetic neuropathy, unspecified; E11.65 Type 2 diabetes mellitus with hyperglycemia; I25.10 Atherosclerotic heart disease of native coronary artery without angina pectoris; I10 Essential (primary) hypertension; G89.29 Other chronic pain; E78.00 Pure hypercholesterolemia, unspecified; E78.5 Hyperlipidemia, unspecified; G47.30 Sleep apnea, unspecified; F32.9 Major depressive disorder, single episode, unspecified; F12.90 Cannabis use, unspecified, uncomplicated; Z79.4 Long term (current) use of insulin; Z79.82 Long term (current) use of aspirin; Z79.899 Other long term (current) drug therapy; Z98.890 Other specified postprocedural states; Z85.07 Personal history of malignant neoplasm of pancreas; Z87.891 Personal history of nicotine dependence
CPT/HCPCS: 36416; 82948; A4663; A6021; A6154

== ENCOUNTER 2019-06-13 07:45 | Day surgery (SDC) | payer MEDICARE, MEDICAID ==
[2019-06-13] MEDS ORDERED: LIDOcaine/PRILOcaine 5gm cream TP ONE (08:46)
== END 2019-06-13 10:04 | disposition home or self-care (01) ==
LOC: WOUND CARE 07:45
PROVIDERS: ATTEND Surgery
DX: E11.621 Type 2 diabetes mellitus with foot ulcer (principal); L97.512 Non-pressure chronic ulcer of other part of right foot with fat layer exposed; E11.40 Type 2 diabetes mellitus with diabetic neuropathy, unspecified; E11.65 Type 2 diabetes mellitus with hyperglycemia; I25.10 Atherosclerotic heart disease of native coronary artery without angina pectoris; I10 Essential (primary) hypertension; G89.29 Other chronic pain; E78.00 Pure hypercholesterolemia, unspecified; E78.5 Hyperlipidemia, unspecified; G47.30 Sleep apnea, unspecified; F32.9 Major depressive disorder, single episode, unspecified; F12.90 Cannabis use, unspecified, uncomplicated; Z79.4 Long term (current) use of insulin; Z79.82 Long term (current) use of aspirin; Z79.899 Other long term (current) drug therapy; Z98.890 Other specified postprocedural states; Z85.07 Personal history of malignant neoplasm of pancreas; Z87.891 Personal history of nicotine dependence
CPT/HCPCS: 36416; 82948; 97597; A4663; A6021; A6154

== ENCOUNTER 2019-06-20 07:50 | Day surgery (SDC) | payer MEDICARE, MEDICAID ==
[~2019-06-20 07:50] MED LIST changes: +CLON0.1T2 PO; -CLON0.1T20 PO; +LAMO100T PO; -LAMO100T89 PO
== END 2019-06-20 10:00 | disposition home or self-care (01) ==
LOC: WOUND CARE 07:50
PROVIDERS: ATTEND Surgery
DX: E11.621 Type 2 diabetes mellitus with foot ulcer (principal); L97.512 Non-pressure chronic ulcer of other part of right foot with fat layer exposed; E11.40 Type 2 diabetes mellitus with diabetic neuropathy, unspecified; E11.65 Type 2 diabetes mellitus with hyperglycemia; I25.10 Atherosclerotic heart disease of native coronary artery without angina pectoris; I10 Essential (primary) hypertension; G89.29 Other chronic pain; E78.00 Pure hypercholesterolemia, unspecified; E78.5 Hyperlipidemia, unspecified; G47.30 Sleep apnea, unspecified; F32.9 Major depressive disorder, single episode, unspecified; F12.90 Cannabis use, unspecified, uncomplicated; Z79.4 Long term (current) use of insulin; Z79.82 Long term (current) use of aspirin; Z79.899 Other long term (current) drug therapy; Z98.890 Other specified postprocedural states; Z85.07 Personal history of malignant neoplasm of pancreas; Z87.891 Personal history of nicotine dependence
CPT/HCPCS: 36416; 82948; 97597; A4663; A6021; A6154

== ENCOUNTER 2019-06-27 07:31 | Day surgery (SDC) | payer MEDICARE, MEDICAID | END 2019-06-27 10:12 | disposition home or self-care (01) | LOC: WOUND CARE 07:31 | PROVIDERS: ATTEND Surgery | DX: E11.621 Type 2 diabetes mellitus with foot ulcer (principal); L97.512 Non-pressure chronic ulcer of other part of right foot with fat layer exposed; E11.40 Type 2 diabetes mellitus with diabetic neuropathy, unspecified; E11.65 Type 2 diabetes mellitus with hyperglycemia; I25.10 Atherosclerotic heart disease of native coronary artery without angina pectoris; I10 Essential (primary) hypertension; G89.29 Other chronic pain; E78.00 Pure hypercholesterolemia, unspecified; E78.5 Hyperlipidemia, unspecified; G47.30 Sleep apnea, unspecified; F32.9 Major depressive disorder, single episode, unspecified; F12.90 Cannabis use, unspecified, uncomplicated; Z79.4 Long term (current) use of insulin; Z79.82 Long term (current) use of aspirin; Z79.899 Other long term (current) drug therapy; Z98.890 Other specified postprocedural states; Z85.07 Personal history of malignant neoplasm of pancreas; Z87.891 Personal history of nicotine dependence | CPT/HCPCS: 36416; 82948; 97597; A6209; A4663; A6154 ==

== ENCOUNTER 2019-07-11 07:48 | Day surgery (SDC) | payer MEDICARE, MEDICAID ==
[2019-07-11] MEDS ORDERED: LIDOcaine/PRILOcaine 5gm cream TP ONE (08:57)
== END 2019-07-11 10:30 | disposition home or self-care (01) ==
LOC: WOUND CARE 07:48
PROVIDERS: ATTEND Surgery
DX: E11.621 Type 2 diabetes mellitus with foot ulcer (principal); L97.512 Non-pressure chronic ulcer of other part of right foot with fat layer exposed; E11.40 Type 2 diabetes mellitus with diabetic neuropathy, unspecified; E11.65 Type 2 diabetes mellitus with hyperglycemia; I25.10 Atherosclerotic heart disease of native coronary artery without angina pectoris; I10 Essential (primary) hypertension; G89.29 Other chronic pain; E78.00 Pure hypercholesterolemia, unspecified; E78.5 Hyperlipidemia, unspecified; G47.30 Sleep apnea, unspecified; F32.9 Major depressive disorder, single episode, unspecified; F12.90 Cannabis use, unspecified, uncomplicated; Z79.4 Long term (current) use of insulin; Z79.82 Long term (current) use of aspirin; Z79.899 Other long term (current) drug therapy; Z98.890 Other specified postprocedural states; Z85.07 Personal history of malignant neoplasm of pancreas; Z87.891 Personal history of nicotine dependence
CPT/HCPCS: 36416; 82948; A4663; A6021; A6154

== ENCOUNTER 2019-07-18 07:40 | Day surgery (SDC) | payer MEDICARE, MEDICAID ==
[2019-07-18] MEDS ORDERED: LIDOcaine/PRILOcaine 5gm cream TP ONE (08:53)
== END 2019-07-18 10:14 | disposition home or self-care (01) ==
LOC: WOUND CARE 07:40
PROVIDERS: ATTEND Surgery
DX: E11.621 Type 2 diabetes mellitus with foot ulcer (principal); L97.512 Non-pressure chronic ulcer of other part of right foot with fat layer exposed; E11.40 Type 2 diabetes mellitus with diabetic neuropathy, unspecified; E11.65 Type 2 diabetes mellitus with hyperglycemia; I25.10 Atherosclerotic heart disease of native coronary artery without angina pectoris; I10 Essential (primary) hypertension; G89.29 Other chronic pain; E78.00 Pure hypercholesterolemia, unspecified; E78.5 Hyperlipidemia, unspecified; G47.30 Sleep apnea, unspecified; F32.9 Major depressive disorder, single episode, unspecified; F12.90 Cannabis use, unspecified, uncomplicated; Z79.4 Long term (current) use of insulin; Z79.82 Long term (current) use of aspirin; Z79.899 Other long term (current) drug therapy; Z98.890 Other specified postprocedural states; Z85.07 Personal history of malignant neoplasm of pancreas; Z87.891 Personal history of nicotine dependence
CPT/HCPCS: 11042; 36416; 82948; A6209; A4663; A6154

== ENCOUNTER 2019-07-22 05:49 | Emergency (ER) | payer MEDICARE, MEDICAID ==
[~2019-07-22] VITALS: Ht 182.9 cm; Wt 132.7 kg
[2019-07-22] MEDS ORDERED: bupivacaine 0.25%/epinephrine 1:200,000 inj (contains preserv. MDV) IJ ONE (07:10)
[2019-07-22] MEDS ORDERED: BUPIVAcaine 0.5% W/EPI /PF 30ml vial IJ ONE (08:15)
[2019-07-22] MEDS ORDERED: CYCL-1 PO (08:26)
[2019-07-22 09:07] VITALS: BP 155/86
== END 2019-07-22 09:08 | disposition home or self-care (01) ==
LOC: ER 05:50
DX: M54.5 Low back pain (principal); M54.6 Pain in thoracic spine; E66.01 Morbid (severe) obesity due to excess calories; E78.00 Pure hypercholesterolemia, unspecified; I10 Essential (primary) hypertension; E11.9 Type 2 diabetes mellitus without complications; G89.29 Other chronic pain; F31.9 Bipolar disorder, unspecified; F12.90 Cannabis use, unspecified, uncomplicated; Z88.1 Allergy status to other antibiotic agents; Z91.018 Allergy to other foods; Z79.899 Other long term (current) drug therapy; Z79.82 Long term (current) use of aspirin; Z87.19 Personal history of other diseases of the digestive system; Z98.890 Other specified postprocedural states; Z91.013 Allergy to seafood
CPT/HCPCS: 20552; 99284

== ENCOUNTER 2019-07-23 21:36 | Emergency (ER) | payer MEDICARE, MEDICAID ==
[~2019-07-23] VITALS: Ht 182.9 cm; Wt 131.0 kg
[2019-07-23 21:42] VITALS: BP 179/83
[2019-07-23] MEDS ORDERED: ketorolac trometh inj. 60 MG/2 ML VIAL IM ONE (22:20)
== END 2019-07-23 22:52 | disposition home or self-care (01) ==
LOC: ER 21:37
DX: M54.5 Low back pain (principal); M53.3 Sacrococcygeal disorders, not elsewhere classified; E78.00 Pure hypercholesterolemia, unspecified; I10 Essential (primary) hypertension; E11.9 Type 2 diabetes mellitus without complications; G89.29 Other chronic pain; F31.9 Bipolar disorder, unspecified; I25.10 Atherosclerotic heart disease of native coronary artery without angina pectoris; Z88.1 Allergy status to other antibiotic agents; Z91.018 Allergy to other foods; Z91.013 Allergy to seafood; Z79.899 Other long term (current) drug therapy; Z79.82 Long term (current) use of aspirin; Z79.4 Long term (current) use of insulin; Z98.890 Other specified postprocedural states
CPT/HCPCS: 96372; 99283; J1885

== ENCOUNTER 2019-07-26 08:00 | Day surgery (SDC) | payer MEDICARE, MEDICAID ==
[2019-07-26] MEDS ORDERED: LIDOcaine 2% 5ml jelly ONE (09:50)
== END 2019-07-26 10:10 | disposition home or self-care (01) ==
LOC: WOUND CARE 08:00
PROVIDERS: ATTEND Surgery
DX: E11.621 Type 2 diabetes mellitus with foot ulcer (principal); L97.512 Non-pressure chronic ulcer of other part of right foot with fat layer exposed; E11.40 Type 2 diabetes mellitus with diabetic neuropathy, unspecified; E11.65 Type 2 diabetes mellitus with hyperglycemia; I25.10 Atherosclerotic heart disease of native coronary artery without angina pectoris; I10 Essential (primary) hypertension; G89.29 Other chronic pain; E78.00 Pure hypercholesterolemia, unspecified; E78.5 Hyperlipidemia, unspecified; G47.30 Sleep apnea, unspecified; H35.30 Unspecified macular degeneration; F32.9 Major depressive disorder, single episode, unspecified; F12.90 Cannabis use, unspecified, uncomplicated; Z79.4 Long term (current) use of insulin; Z79.82 Long term (current) use of aspirin; Z79.899 Other long term (current) drug therapy; Z98.890 Other specified postprocedural states; Z85.07 Personal history of malignant neoplasm of pancreas; Z87.891 Personal history of nicotine dependence
CPT/HCPCS: 15275; 36416; 82948; A6209; A6222; Q4187; A4663; A6250

== ENCOUNTER 2019-08-01 14:48 | Emergency (ER) | payer MEDICARE, MEDICAID ==
[~2019-08-01] VITALS: Ht 182.9 cm; Wt 131.0 kg
[2019-08-01 16:07] LABS: BASOPHILS # (AUTO) 0.1 X10'3 (0-0.2); BASOPHILS % (AUTO) 1.7 % (0-1); EOSINOPHILS # (AUTO) 0.6 X10'3 (0-0.9); EOSINOPHILS % (AUTO) 7.8 % (0-6); HEMATOCRIT 41.1 % (35.0-45.0); HEMOGLOBIN 13.4 g/dl (12.0-16.0); LYMPHOCYTES # (AUTO) 3.1 X10'3 (1.1-4.8); LYMPHOCYTES % (AUTO) 39.1 % (21-51); MEAN CORPUSCULAR HGB CONC 32.7 g/dL (33.0-36.5); MEAN CORPUSCULAR VOLUME 88.8 FL (78-98); MEAN PLATELET VOLUME 7.9 FL (7.4-10.4); MONOCYTES # (AUTO) 0.5 X10'3 (0-0.9); MONOCYTES % (AUTO) 6.4 % (2-12); NEUTROPHILS # (AUTO) 3.5 X10'3 (1.8-7.7); PLATELET COUNT 441 X10'3 (140-440); RED BLOOD COUNT 4.62 X10'6 (4.20-5.60); RED CELL DISTRIBUTION WIDTH 14.9 % (11.5-14.5); WHITE BLOOD COUNT 7.9 X10'3 (4.5-11.0)
[2019-08-01 16:20] LABS: ALANINE AMINOTRANSFERASE 26 U/L (12-78); ALBUMIN 3.3 G/DL (3.4-5.0); ALBUMIN/GLOBULIN RATIO 0.8 (1.1-1.5); ALKALINE PHOSPHATASE 73 IU/L (46-116); ANION GAP 6 (8-16); ASPARTATE AMINO TRANSFERASE 24 U/L (10-37); BILIRUBIN,TOTAL 0.2 MG/DL (0.1-1.0); BLOOD UREA NITROGEN 26 MG/DL (7-18); CALCIUM 9.4 MG/DL (8.5-10.1); CHLORIDE 102 MMOL/L (99-107); CREATININE 1.24 MG/DL (0.40-0.90); GLUCOSE 168 MG/DL (70-104); POTASSIUM 4.3 MMOL/L (3.5-5.1); SODIUM 137 MMOL/L (135-145); TOTAL CARBON DIOXIDE 29.2 MMOL/L (24-32); TOTAL PROTEIN 7.5 G/DL (6.4-8.2); eGFR 45 ML/MIN
[2019-08-01 16:23] LABS: ETHANOL < 0.010 GM/DL (0.0-0.010)
--- NOTE | 2019-08-01 16:39 | NUR ---
PT. HAS A WOUND DRESSING ON HER RIGHT BIG TOE, THAT WAS PLACED BY WOUND DOCTOR DR. ESPINOZA. WE WILL NOT REMOVE THE DRESSING AT PT. REQUEST. WE WILL KEEP A CLOSE EYE ON THE DRESSING.
--- NOTE | 2019-08-01 16:55 | NUR ---
ADVISED PROVIDER THAT THE ORDERED SUPPLIES WERE READY
[2019-08-01 18:20] LABS: URINE HCG NEGATIVE (NEG)
[2019-08-01 18:33] LABS: URINE AMPHETAMINE SCREEN POSITIVE (Neg); URINE BARBITUATE SCREEN NEGATIVE (Neg); URINE BENZODIAZEPINES SCREEN POSITIVE (Neg); URINE CANNABINOID SCREEN NEGATIVE (Neg); URINE COCAINE SCREEN NEGATIVE (Neg); URINE METHADONE SCREEN NEGATIVE (Neg); URINE OPIATE SCREEN NEGATIVE (Neg); URINE PHENCYCLIDINE SCREEN NEGATIVE (Neg)
[2019-08-01 19:37] LABS: CLARITY,URINE CLEAR (Clear); COLOR,URINE YELLOW (Yellow); GLUCOSE, URINE >=1000 mg/dl (Neg); KETONES,URINE NEGATIVE (Neg); LEUKOCYTE ESTERASE ,URINE NEGATIVE (Neg); NITRITES, URINE NEGATIVE (Neg); OCCULT BLOOD,URINE NEGATIVE (Neg); PH,URINE 6.5 (4.8-8.0); PROTEIN,URINE 100 mg/dl (Neg); UROBILINOGEN,URINE 0.2 E.U/dL (0.2-1.0)
[2019-08-01 19:38] LABS: UA COLLECTION TYPE CLN CATCH MIDSTREAM
[2019-08-01] MEDS ORDERED: ESZO3TAB66 PO (19:43)
[2019-08-01] MEDS ORDERED: EMPA1TAB3 PO (19:43)
[2019-08-01] MEDS ORDERED: DEXT30TA10 PO (19:43)
[2019-08-01 19:47] LABS: BACTERIA,URINE NONE SEEN /HPF (Neg); MUCUS STRANDS FEW /LPF (Neg); RBC,URINE 0-2 /HPF (0-2); SQUAMOUS EPITHELIAL CELL,UR FEW /LPF (FEW); WBC,URINE 0-4 /HPF (0-4)
[2019-08-01] MEDS ORDERED: hydrOXYzine 25 MG tablet PO PRN (20:25)
[2019-08-01] MEDS ORDERED: cyclobenzaprine 10mg tablet PO PRN (20:25)
--- NOTE | 2019-08-01 20:42 | NUR ---
The patient was moved to bed #23 in the ER after being medically cleared. Her packet of information was faxed to [facility]. She ambulated without diffiuculty. 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 She has a clean dry intact dressing to her right arm. She has a superficial cut to the inner left arm. She has many scars from previous cutting behaviors. She stated that she felt suicida last evening with a plan to take an overdose and had been on the phone with the suicide hot line. She ended up impulsively cutting her arm today which she stated was to relieve pressure and stress in her life. She currently denies being suicidal. She is a current patient of [facility]. She reports hx of MDD, ADHD, PTSD, Disassociative disorder, and BPD
[2019-08-01] MEDS ORDERED: fenofibrate 145mg tablet PO SCH (21:00)
[2019-08-01] MEDS ORDERED: lisinopril 2.5mg tablet PO SCH (21:00)
[2019-08-01] MEDS ORDERED: dextrose ORAL solution 15 GM/59 ML bottle PO PRN ×2 (21:00)
[2019-08-01] MEDS ORDERED: dextrose 50%-water 50ml dispensing syringe IV PRN ×2 (21:00)
[2019-08-01] MEDS ORDERED: glucagon, human recombinant 1mg kit SUBCUT PRN (21:00)
[2019-08-01] MEDS ORDERED: lamoTRIgine 25mg tablet PO SCH (21:00)
[2019-08-01] MEDS: zolpidem 5mg tablet PO SCH ×2 (21:00→21:37)
[2019-08-01] MEDS ORDERED: PALIPERIDONE 3 MG TAB.ER.24 PO SCH ×2 (21:00)
[2019-08-01] MEDS ORDERED: insulin glargine (Lantus) pen - multi-dose SQ SCH (21:00)
[2019-08-01] MEDS ORDERED: MESSAGE TO PHARMACY PO ONE (21:55)
[2019-08-01] MEDS ORDERED: insulin Lispro (HumaLOG) vial - multi-dose SQ SCH (21:55)
[2019-08-01] MEDS ORDERED: lamoTRIgine 25mg tablet PO ONE (22:05)
[2019-08-01 22:33] LABS: HEMOGLOBIN A1C 9.6 % (4.5-6.2)
--- NOTE | 2019-08-01 23:33 | NUR ---
The patient appears to be sleeping
--- NOTE | 2019-08-02 01:42 | NUR ---
The patient was awake and stated she was worried about her dog. Atarax given
--- NOTE | 2019-08-02 02:55 | NUR ---
The patient appears to be sleeping.
--- NOTE | 2019-08-02 05:25 | NUR ---
The patient appears to be sleeping well
--- NOTE | 2019-08-02 06:07 | NUR ---
Patient is sleeping
[2019-08-02 06:17] VITALS: BP 133/72
--- NOTE | 2019-08-02 07:02 | NUR ---
Patient is sleeping
[2019-08-02] MEDS ORDERED: insulin Lispro (HumaLOG) vial - multi-dose SQ SCH (07:30)
[2019-08-02] MEDS ORDERED: AMPHETAMINE PO SCH (08:00)
[2019-08-02] MEDS ORDERED: metFORMIN 500mg tablet PO SCH (08:00)
[2019-08-02] MEDS ORDERED: atorvastatin 20mg tablet PO SCH (08:00)
[2019-08-02] MEDS ORDERED: venlafaxine XR 75mg capsule (Q24H) PO SCH (08:00)
[2019-08-02] MEDS ORDERED: TYPE IN GENERIC & BRAND NAME OF PATIENT MED STRENGTH & FORM PO SCH (08:00)
[2019-08-02] MEDS ORDERED: lamoTRIgine 25mg tablet PO SCH ×3 (08:00→21:00)
[2019-08-02] MEDS ORDERED: aspirin 81mg tablet.DR PO SCH (08:00)
[2019-08-02] MEDS ORDERED: DEXTROAMPHETAMINE PO SCH (08:00)
[2019-08-02] MEDS ORDERED: diltiazem CD 120mg capsule (once-daily) PO SCH (08:00)
[2019-08-02] MEDS ORDERED: cloNIDine 0.1 mg tablet PO SCH (08:00)
--- NOTE | 2019-08-02 08:00 | NUR ---
eating breakfast, sitting up
--- NOTE | 2019-08-02 09:00 | NUR ---
Patient is being seen by [facility], no s.s. of distress
--- NOTE | 2019-08-02 09:31 | NUR ---
Patient evulated by [facility] as safe for DC home, Kelly Botello in agreeance.
[2019-08-02] MEDS ORDERED: dextroamphetamine/amphetamine 5mg tablet PO SCH (10:00)
== END 2019-08-02 09:35 | disposition left against medical advice (07) ==
LOC: ER 14:48
DX: S51.811A Laceration without foreign body of right forearm, initial encounter (principal); S51.812A Laceration without foreign body of left forearm, initial encounter; F32.9 Major depressive disorder, single episode, unspecified; E78.00 Pure hypercholesterolemia, unspecified; I10 Essential (primary) hypertension; E11.9 Type 2 diabetes mellitus without complications; G89.29 Other chronic pain; Z98.890 Other specified postprocedural states; Z88.1 Allergy status to other antibiotic agents; Z91.018 Allergy to other foods; Z79.82 Long term (current) use of aspirin; Z79.899 Other long term (current) drug therapy; Z79.4 Long term (current) use of insulin; X78.1XXA Intentional self-harm by knife, initial encounter; Y93.89 Activity, other specified; Y92.89 Other specified places as the place of occurrence of the external cause; Y99.8 Other external cause status
CPT/HCPCS: 12004; 36415; 80053; 80305; 80320; 81001; 81025; 82948; 83036; 84443; 85025; 96372; 99284; Z7610; J1815

== ENCOUNTER 2019-08-02 09:35 | Day surgery (SDC) | payer MEDICARE, MEDICAID ==
[~2019-08-02 09:35] MED LIST changes: +DEXT30TA10 PO; +EMPA1TAB3 PO; +ESZO3TAB66 PO; -LAMO100T PO; -MELO-100 PO
== END 2019-08-02 10:23 | disposition home or self-care (01) ==
LOC: WOUND CARE 09:35
PROVIDERS: ATTEND Nurse Practitioner Family
DX: E11.621 Type 2 diabetes mellitus with foot ulcer (principal); L97.512 Non-pressure chronic ulcer of other part of right foot with fat layer exposed; E11.40 Type 2 diabetes mellitus with diabetic neuropathy, unspecified; E11.65 Type 2 diabetes mellitus with hyperglycemia; I25.10 Atherosclerotic heart disease of native coronary artery without angina pectoris; I10 Essential (primary) hypertension; G89.29 Other chronic pain; E78.00 Pure hypercholesterolemia, unspecified; E78.5 Hyperlipidemia, unspecified; G47.30 Sleep apnea, unspecified; H35.30 Unspecified macular degeneration; F32.9 Major depressive disorder, single episode, unspecified; F12.90 Cannabis use, unspecified, uncomplicated; Z79.4 Long term (current) use of insulin; Z79.82 Long term (current) use of aspirin; Z79.899 Other long term (current) drug therapy; Z98.890 Other specified postprocedural states; Z85.07 Personal history of malignant neoplasm of pancreas; Z87.891 Personal history of nicotine dependence
CPT/HCPCS: 36416; 82948; 97597; A4663; A6021; A6154

== ENCOUNTER 2019-08-09 07:45 | Day surgery (SDC) | payer MEDICARE, MEDICAID ==
[2019-08-09] MEDS ORDERED: LIDOcaine 2% 5ml jelly ONE (08:22)
== END 2019-08-09 09:10 | disposition home or self-care (01) ==
LOC: WOUND CARE 07:45
PROVIDERS: ATTEND Nurse Practitioner Family
DX: E11.621 Type 2 diabetes mellitus with foot ulcer (principal); L97.512 Non-pressure chronic ulcer of other part of right foot with fat layer exposed; E11.40 Type 2 diabetes mellitus with diabetic neuropathy, unspecified; E11.65 Type 2 diabetes mellitus with hyperglycemia; I25.10 Atherosclerotic heart disease of native coronary artery without angina pectoris; I10 Essential (primary) hypertension; G89.29 Other chronic pain; E78.00 Pure hypercholesterolemia, unspecified; E78.5 Hyperlipidemia, unspecified; G47.30 Sleep apnea, unspecified; H35.30 Unspecified macular degeneration; E66.01 Morbid (severe) obesity due to excess calories; F32.9 Major depressive disorder, single episode, unspecified; F12.90 Cannabis use, unspecified, uncomplicated; Z79.4 Long term (current) use of insulin; Z79.82 Long term (current) use of aspirin; Z79.899 Other long term (current) drug therapy; Z98.890 Other specified postprocedural states; Z85.07 Personal history of malignant neoplasm of pancreas; Z87.891 Personal history of nicotine dependence; Z87.19 Personal history of other diseases of the digestive system; Z68.37 Body mass index [BMI] 37.0-37.9, adult
CPT/HCPCS: 36416; 82948; 97597; A6209; A4663; A6021; A6154

== ENCOUNTER 2019-08-11 00:10 | Emergency (ER) | payer MEDICARE, MEDICAID ==
[~2019-08-11] VITALS: Ht 182.9 cm; Wt 131.8 kg
[2019-08-11 00:17] VITALS: BP 172/89
== END 2019-08-11 01:17 | disposition home or self-care (01) ==
LOC: ER 00:11
DX: S51.811D Laceration without foreign body of right forearm, subsequent encounter (principal); E78.00 Pure hypercholesterolemia, unspecified; I10 Essential (primary) hypertension; E11.9 Type 2 diabetes mellitus without complications; G89.29 Other chronic pain; F31.9 Bipolar disorder, unspecified; Z98.890 Other specified postprocedural states; Z88.1 Allergy status to other antibiotic agents; Z91.018 Allergy to other foods; Z79.4 Long term (current) use of insulin; Z79.84 Long term (current) use of oral hypoglycemic drugs; Z79.899 Other long term (current) drug therapy; X58.XXXD Exposure to other specified factors, subsequent encounter
CPT/HCPCS: 99282

== ENCOUNTER 2019-08-15 08:25 | Day surgery (SDC) | payer MEDICARE, MEDICAID ==
[~2019-08-15 08:25] MED LIST changes: +FENO145T26 PO; -FENO145T36 PO
[2019-08-15] MEDS ORDERED: LIDOcaine/PRILOcaine 5gm cream TP ONE (09:20)
== END 2019-08-15 10:52 | disposition home or self-care (01) ==
LOC: WOUND CARE 08:25
PROVIDERS: ATTEND Surgery
DX: E11.621 Type 2 diabetes mellitus with foot ulcer (principal); L97.512 Non-pressure chronic ulcer of other part of right foot with fat layer exposed; E11.40 Type 2 diabetes mellitus with diabetic neuropathy, unspecified; E11.65 Type 2 diabetes mellitus with hyperglycemia; I25.10 Atherosclerotic heart disease of native coronary artery without angina pectoris; I10 Essential (primary) hypertension; G89.29 Other chronic pain; E78.00 Pure hypercholesterolemia, unspecified; E78.5 Hyperlipidemia, unspecified; G47.30 Sleep apnea, unspecified; H35.30 Unspecified macular degeneration; E66.01 Morbid (severe) obesity due to excess calories; F32.9 Major depressive disorder, single episode, unspecified; F12.90 Cannabis use, unspecified, uncomplicated; Z79.4 Long term (current) use of insulin; Z79.82 Long term (current) use of aspirin; Z79.899 Other long term (current) drug therapy; Z98.890 Other specified postprocedural states; Z85.07 Personal history of malignant neoplasm of pancreas; Z87.891 Personal history of nicotine dependence; Z87.19 Personal history of other diseases of the digestive system; Z68.37 Body mass index [BMI] 37.0-37.9, adult
CPT/HCPCS: 15275; 36416; 82948; A6209; Q4187; 15276; A4663; A6250

== ENCOUNTER 2019-08-22 07:38 | Day surgery (SDC) | payer MEDICARE, MEDICAID ==
[2019-08-22] MEDS ORDERED: LIDOcaine 2% 5ml jelly ONE (09:49)
== END 2019-08-22 10:47 | disposition home or self-care (01) ==
LOC: WOUND CARE 07:38
PROVIDERS: ATTEND Surgery
DX: E11.621 Type 2 diabetes mellitus with foot ulcer (principal); L97.512 Non-pressure chronic ulcer of other part of right foot with fat layer exposed; E11.40 Type 2 diabetes mellitus with diabetic neuropathy, unspecified; E11.65 Type 2 diabetes mellitus with hyperglycemia; I25.10 Atherosclerotic heart disease of native coronary artery without angina pectoris; I10 Essential (primary) hypertension; G89.29 Other chronic pain; E78.00 Pure hypercholesterolemia, unspecified; E78.5 Hyperlipidemia, unspecified; G47.30 Sleep apnea, unspecified; H35.30 Unspecified macular degeneration; E66.01 Morbid (severe) obesity due to excess calories; F32.9 Major depressive disorder, single episode, unspecified; F12.90 Cannabis use, unspecified, uncomplicated; Z79.4 Long term (current) use of insulin; Z79.82 Long term (current) use of aspirin; Z79.899 Other long term (current) drug therapy; Z98.890 Other specified postprocedural states; Z85.07 Personal history of malignant neoplasm of pancreas; Z87.891 Personal history of nicotine dependence; Z87.19 Personal history of other diseases of the digestive system; Z68.37 Body mass index [BMI] 37.0-37.9, adult
CPT/HCPCS: 36416; 82948; 97597; A6021; A6154

== ENCOUNTER 2019-08-29 08:00 | Day surgery (SDC) | payer MEDICARE, MEDICAID ==
[2019-08-29] MEDS ORDERED: LIDOcaine/PRILOcaine 5gm cream TP ONE (08:55)
== END 2019-08-29 09:45 | disposition home or self-care (01) ==
LOC: WOUND CARE 08:00
PROVIDERS: ATTEND Surgery
DX: E11.621 Type 2 diabetes mellitus with foot ulcer (principal); L97.516 Non-pressure chronic ulcer of other part of right foot with bone involvement without evidence of necrosis; E11.40 Type 2 diabetes mellitus with diabetic neuropathy, unspecified; E11.65 Type 2 diabetes mellitus with hyperglycemia; I25.10 Atherosclerotic heart disease of native coronary artery without angina pectoris; I10 Essential (primary) hypertension; G89.29 Other chronic pain; E78.00 Pure hypercholesterolemia, unspecified; E78.5 Hyperlipidemia, unspecified; G47.30 Sleep apnea, unspecified; H35.30 Unspecified macular degeneration; E66.01 Morbid (severe) obesity due to excess calories; F32.9 Major depressive disorder, single episode, unspecified; F12.90 Cannabis use, unspecified, uncomplicated; Z79.4 Long term (current) use of insulin; Z79.82 Long term (current) use of aspirin; Z79.899 Other long term (current) drug therapy; Z98.890 Other specified postprocedural states; Z85.07 Personal history of malignant neoplasm of pancreas; Z87.891 Personal history of nicotine dependence; Z87.19 Personal history of other diseases of the digestive system; Z68.37 Body mass index [BMI] 37.0-37.9, adult
CPT/HCPCS: 36416; 82948; A4663; A6021; A6154

== ENCOUNTER 2019-09-05 08:25 | Day surgery (SDC) | payer MEDICARE, MEDICAID ==
[2019-09-05] MEDS ORDERED: LIDOcaine/PRILOcaine 5gm cream TP ONE (08:50)
== END 2019-09-05 10:15 | disposition home or self-care (01) ==
LOC: WOUND CARE 08:25
PROVIDERS: ATTEND Surgery
DX: E11.621 Type 2 diabetes mellitus with foot ulcer (principal); L97.512 Non-pressure chronic ulcer of other part of right foot with fat layer exposed; E11.40 Type 2 diabetes mellitus with diabetic neuropathy, unspecified; E11.65 Type 2 diabetes mellitus with hyperglycemia; I25.10 Atherosclerotic heart disease of native coronary artery without angina pectoris; I10 Essential (primary) hypertension; G89.29 Other chronic pain; E78.00 Pure hypercholesterolemia, unspecified; E78.5 Hyperlipidemia, unspecified; G47.30 Sleep apnea, unspecified; H35.30 Unspecified macular degeneration; E66.01 Morbid (severe) obesity due to excess calories; F32.9 Major depressive disorder, single episode, unspecified; F12.90 Cannabis use, unspecified, uncomplicated; Z79.4 Long term (current) use of insulin; Z79.82 Long term (current) use of aspirin; Z79.899 Other long term (current) drug therapy; Z98.890 Other specified postprocedural states; Z85.07 Personal history of malignant neoplasm of pancreas; Z87.891 Personal history of nicotine dependence; Z87.19 Personal history of other diseases of the digestive system; Z68.37 Body mass index [BMI] 37.0-37.9, adult
CPT/HCPCS: 15275; 36416; 82948; A6209; Q4187; A4663; A6154; A6250

== ENCOUNTER 2019-09-12 07:30 | Day surgery (SDC) | payer MEDICARE, MEDICAID ==
[2019-09-12] MEDS ORDERED: LIDOcaine 2% 5ml jelly ONE (09:41)
[2019-09-12] MEDS ORDERED: dextrose ORAL solution 15 GM/59 ML bottle ONE (10:01)
== END 2019-09-12 10:18 | disposition home or self-care (01) ==
LOC: WOUND CARE 07:30
PROVIDERS: ATTEND Surgery
DX: E11.621 Type 2 diabetes mellitus with foot ulcer (principal); L97.512 Non-pressure chronic ulcer of other part of right foot with fat layer exposed; E11.40 Type 2 diabetes mellitus with diabetic neuropathy, unspecified; E11.65 Type 2 diabetes mellitus with hyperglycemia; I25.10 Atherosclerotic heart disease of native coronary artery without angina pectoris; I10 Essential (primary) hypertension; G89.29 Other chronic pain; E78.00 Pure hypercholesterolemia, unspecified; E78.5 Hyperlipidemia, unspecified; G47.30 Sleep apnea, unspecified; H35.30 Unspecified macular degeneration; E66.01 Morbid (severe) obesity due to excess calories; F32.9 Major depressive disorder, single episode, unspecified; F12.90 Cannabis use, unspecified, uncomplicated; Z79.4 Long term (current) use of insulin; Z79.82 Long term (current) use of aspirin; Z79.899 Other long term (current) drug therapy; Z98.890 Other specified postprocedural states; Z85.07 Personal history of malignant neoplasm of pancreas; Z87.891 Personal history of nicotine dependence; Z87.19 Personal history of other diseases of the digestive system; Z68.37 Body mass index [BMI] 37.0-37.9, adult
CPT/HCPCS: 36416; 82948; 97597; A6021

== ENCOUNTER 2019-09-19 07:30 | Day surgery (SDC) | payer MEDICARE, MEDICAID ==
[2019-09-19] MEDS ORDERED: LIDOcaine 2% 5ml jelly ONE (09:30)
== END 2019-09-19 10:12 | disposition home or self-care (01) ==
LOC: WOUND CARE 07:30
PROVIDERS: ATTEND Surgery
DX: E11.621 Type 2 diabetes mellitus with foot ulcer (principal); L97.512 Non-pressure chronic ulcer of other part of right foot with fat layer exposed; E11.40 Type 2 diabetes mellitus with diabetic neuropathy, unspecified; E11.65 Type 2 diabetes mellitus with hyperglycemia; I25.10 Atherosclerotic heart disease of native coronary artery without angina pectoris; I10 Essential (primary) hypertension; G89.29 Other chronic pain; E78.00 Pure hypercholesterolemia, unspecified; E78.5 Hyperlipidemia, unspecified; G47.30 Sleep apnea, unspecified; H35.30 Unspecified macular degeneration; E66.01 Morbid (severe) obesity due to excess calories; F32.9 Major depressive disorder, single episode, unspecified; F12.90 Cannabis use, unspecified, uncomplicated; Z79.4 Long term (current) use of insulin; Z79.82 Long term (current) use of aspirin; Z79.899 Other long term (current) drug therapy; Z98.890 Other specified postprocedural states; Z85.07 Personal history of malignant neoplasm of pancreas; Z87.891 Personal history of nicotine dependence; Z87.19 Personal history of other diseases of the digestive system; Z68.37 Body mass index [BMI] 37.0-37.9, adult
CPT/HCPCS: 15275; 36416; 82948; Q4187

== ENCOUNTER 2019-09-26 07:45 | Day surgery (SDC) | payer MEDICARE, MEDICAID ==
[2019-09-26] MEDS ORDERED: LIDOcaine 2% 5ml jelly ONE (09:26)
== END 2019-09-26 09:55 | disposition home or self-care (01) ==
LOC: WOUND CARE 07:45
PROVIDERS: ATTEND Surgery
DX: E11.621 Type 2 diabetes mellitus with foot ulcer (principal); L97.512 Non-pressure chronic ulcer of other part of right foot with fat layer exposed; E11.40 Type 2 diabetes mellitus with diabetic neuropathy, unspecified; E11.65 Type 2 diabetes mellitus with hyperglycemia; I25.10 Atherosclerotic heart disease of native coronary artery without angina pectoris; I10 Essential (primary) hypertension; G89.29 Other chronic pain; E78.00 Pure hypercholesterolemia, unspecified; E78.5 Hyperlipidemia, unspecified; G47.30 Sleep apnea, unspecified; H35.30 Unspecified macular degeneration; E66.01 Morbid (severe) obesity due to excess calories; F32.9 Major depressive disorder, single episode, unspecified; F12.90 Cannabis use, unspecified, uncomplicated; Z79.4 Long term (current) use of insulin; Z79.82 Long term (current) use of aspirin; Z79.899 Other long term (current) drug therapy; Z98.890 Other specified postprocedural states; Z85.07 Personal history of malignant neoplasm of pancreas; Z87.891 Personal history of nicotine dependence; Z87.19 Personal history of other diseases of the digestive system; Z68.37 Body mass index [BMI] 37.0-37.9, adult
CPT/HCPCS: 36416; 82948; 97597

== ENCOUNTER 2019-10-01 11:50 | Day surgery (SDC) | payer MEDICARE, MEDICAID ==
[2019-10-01] MEDS ORDERED: Silvasorb gel 45gm tube TP ONE (12:36)
== END 2019-10-01 13:07 | disposition home or self-care (01) ==
LOC: WOUND CARE 11:50
PROVIDERS: ATTEND Surgery
DX: E11.621 Type 2 diabetes mellitus with foot ulcer (principal); L97.512 Non-pressure chronic ulcer of other part of right foot with fat layer exposed; E11.40 Type 2 diabetes mellitus with diabetic neuropathy, unspecified; E11.65 Type 2 diabetes mellitus with hyperglycemia; I25.10 Atherosclerotic heart disease of native coronary artery without angina pectoris; I10 Essential (primary) hypertension; G89.29 Other chronic pain; E78.00 Pure hypercholesterolemia, unspecified; E78.5 Hyperlipidemia, unspecified; G47.30 Sleep apnea, unspecified; H35.30 Unspecified macular degeneration; E66.01 Morbid (severe) obesity due to excess calories; F32.9 Major depressive disorder, single episode, unspecified; F12.90 Cannabis use, unspecified, uncomplicated; Z79.4 Long term (current) use of insulin; Z79.82 Long term (current) use of aspirin; Z79.899 Other long term (current) drug therapy; Z98.890 Other specified postprocedural states; Z85.07 Personal history of malignant neoplasm of pancreas; Z87.891 Personal history of nicotine dependence; Z87.19 Personal history of other diseases of the digestive system; Z68.37 Body mass index [BMI] 37.0-37.9, adult
CPT/HCPCS: 11042; 36416; 82948

== ENCOUNTER 2019-11-20 15:11 | Emergency (ER) | payer MEDICARE, MEDICAID ==
[~2019-11-20] VITALS: Ht 182.9 cm; Wt 13.1 kg
[2019-11-20 15:29] VITALS: BP 146/80
== END 2019-11-20 17:07 | disposition home or self-care (01) ==
LOC: ER 15:12
DX: S76.912A Strain of unspecified muscles, fascia and tendons at thigh level, left thigh, initial encounter (principal); M17.12 Unilateral primary osteoarthritis, left knee; M25.462 Effusion, left knee; M54.5 Low back pain; E78.00 Pure hypercholesterolemia, unspecified; I10 Essential (primary) hypertension; E11.9 Type 2 diabetes mellitus without complications; G89.29 Other chronic pain; F31.9 Bipolar disorder, unspecified; Z98.890 Other specified postprocedural states; Z88.1 Allergy status to other antibiotic agents; Z91.018 Allergy to other foods; Z79.82 Long term (current) use of aspirin; Z79.4 Long term (current) use of insulin; Z79.899 Other long term (current) drug therapy; W08.XXXA Fall from other furniture, initial encounter; Y93.89 Activity, other specified; Y92.020 Kitchen in mobile home as the place of occurrence of the external cause; Y99.8 Other external cause status
CPT/HCPCS: 73564; 82948; 99283

== ENCOUNTER 2019-12-31 12:07 | Emergency (ER) | payer MEDICARE, MEDICAID ==
[~2019-12-31] VITALS: Ht 185.4 cm; Wt 107.0 kg
[2019-12-31 14:36] VITALS: BP 147/78
== END 2019-12-31 15:40 | disposition home or self-care (01) ==
LOC: ER 12:08
DX: H43.812 Vitreous degeneration, left eye (principal); E78.00 Pure hypercholesterolemia, unspecified; I10 Essential (primary) hypertension; E11.9 Type 2 diabetes mellitus without complications; G89.29 Other chronic pain; F31.9 Bipolar disorder, unspecified; Z98.890 Other specified postprocedural states; Z87.891 Personal history of nicotine dependence; Z88.8 Allergy status to other drugs, medicaments and biological substances; Z79.82 Long term (current) use of aspirin; Z79.4 Long term (current) use of insulin; Z79.899 Other long term (current) drug therapy
CPT/HCPCS: 82948; 99282

== ENCOUNTER 2020-05-06 08:21 | Emergency (ER) | payer MEDICARE, MEDICAID ==
[~2020-05-06] VITALS: Ht 185.4 cm; Wt 150.0 kg
[2020-05-06] MEDS ORDERED: DOXY100C76 PO (09:24)
[2020-05-06] MEDS ORDERED: CEPH250T PO (09:24)
[2020-05-06 09:38] VITALS: BP 155/75
== END 2020-05-06 09:39 | disposition home or self-care (01) ==
LOC: ER 08:22
DX: S90.851A Superficial foreign body, right foot, initial encounter (principal); M79.671 Pain in right foot; E78.00 Pure hypercholesterolemia, unspecified; I10 Essential (primary) hypertension; E11.9 Type 2 diabetes mellitus without complications; G89.29 Other chronic pain; F31.9 Bipolar disorder, unspecified; Z85.9 Personal history of malignant neoplasm, unspecified; Z98.890 Other specified postprocedural states; Z88.1 Allergy status to other antibiotic agents; Z91.018 Allergy to other foods; Z79.82 Long term (current) use of aspirin; Z79.4 Long term (current) use of insulin; Z79.899 Other long term (current) drug therapy; X58.XXXA Exposure to other specified factors, initial encounter; Y93.89 Activity, other specified; Y92.89 Other specified places as the place of occurrence of the external cause; Y99.8 Other external cause status
CPT/HCPCS: 99283

== ENCOUNTER 2020-05-09 08:01 | Day surgery (SDC) | payer MEDICARE, MEDICAID ==
[~2020-05-09 08:01] MED LIST changes: +CEPH250T PO; +DOXY100C76 PO
[2020-05-09] MEDS ORDERED: LIDOcaine 2% 5ml jelly ONE (08:50)
== END 2020-05-09 09:43 | disposition home or self-care (01) ==
LOC: WOUND CARE 08:01
PROVIDERS: ATTEND Nurse Practitioner
DX: S91.301A Unspecified open wound, right foot, initial encounter (principal); E11.621 Type 2 diabetes mellitus with foot ulcer; L97.411 Non-pressure chronic ulcer of right heel and midfoot limited to breakdown of skin; E11.40 Type 2 diabetes mellitus with diabetic neuropathy, unspecified; I10 Essential (primary) hypertension; E11.65 Type 2 diabetes mellitus with hyperglycemia; E78.00 Pure hypercholesterolemia, unspecified; G89.29 Other chronic pain; E78.5 Hyperlipidemia, unspecified; G47.30 Sleep apnea, unspecified; H35.30 Unspecified macular degeneration; E66.01 Morbid (severe) obesity due to excess calories; F32.9 Major depressive disorder, single episode, unspecified; Z79.4 Long term (current) use of insulin; Z79.82 Long term (current) use of aspirin; Z79.899 Other long term (current) drug therapy; Z79.890 Hormone replacement therapy; Z85.07 Personal history of malignant neoplasm of pancreas; Z87.891 Personal history of nicotine dependence; Z87.19 Personal history of other diseases of the digestive system; Z68.37 Body mass index [BMI] 37.0-37.9, adult; X58.XXXA Exposure to other specified factors, initial encounter; Y93.89 Activity, other specified; Y92.89 Other specified places as the place of occurrence of the external cause; Y99.8 Other external cause status
CPT/HCPCS: 36416; 73630; 82948; 97597

== ENCOUNTER 2020-05-16 08:06 | Outpatient (CLI) | payer MEDICARE, MEDICAID ==
[~2020-05-16 08:06] MED LIST changes: -CEPH250T PO; -DOXY100C76 PO
== END 2020-05-16 09:05 | disposition home or self-care (01) ==
LOC: WOUND CARE 08:06 → EDSTATUS 08:20 → WOUND CARE 09:05
PROVIDERS: ATTEND Nurse Practitioner
DX: S91.301D Unspecified open wound, right foot, subsequent encounter (principal); E11.621 Type 2 diabetes mellitus with foot ulcer; L97.411 Non-pressure chronic ulcer of right heel and midfoot limited to breakdown of skin; E11.40 Type 2 diabetes mellitus with diabetic neuropathy, unspecified; I10 Essential (primary) hypertension; E11.65 Type 2 diabetes mellitus with hyperglycemia; E78.00 Pure hypercholesterolemia, unspecified; G89.29 Other chronic pain; E78.5 Hyperlipidemia, unspecified; G47.30 Sleep apnea, unspecified; H35.30 Unspecified macular degeneration; E66.01 Morbid (severe) obesity due to excess calories; F32.9 Major depressive disorder, single episode, unspecified; Z79.4 Long term (current) use of insulin; Z79.82 Long term (current) use of aspirin; Z79.899 Other long term (current) drug therapy; Z79.890 Hormone replacement therapy; Z85.07 Personal history of malignant neoplasm of pancreas; Z87.891 Personal history of nicotine dependence; Z87.19 Personal history of other diseases of the digestive system; Z68.37 Body mass index [BMI] 37.0-37.9, adult; X58.XXXD Exposure to other specified factors, subsequent encounter
CPT/HCPCS: 36416; 82948; 97597

== ENCOUNTER 2020-12-27 21:04 | Emergency (ER) | payer MEDICARE, MEDICAID ==
[~2020-12-27] VITALS: Ht 182.9 cm; Wt 130.7 kg
[2020-12-27] MEDS ORDERED: ketorolac trometh. 30mg/ml inj. IM ONE (22:10)
[2020-12-27] MEDS ORDERED: CYCL-1 PO (22:45)
[2020-12-27 22:48] VITALS: BP 150/70
== END 2020-12-27 22:52 | disposition home or self-care (01) ==
LOC: ER 21:05
DX: M54.6 Pain in thoracic spine (principal); M54.2 Cervicalgia; E78.00 Pure hypercholesterolemia, unspecified; I10 Essential (primary) hypertension; E11.9 Type 2 diabetes mellitus without complications; G89.29 Other chronic pain; Z87.81 Personal history of (healed) traumatic fracture; Z98.890 Other specified postprocedural states; Z79.82 Long term (current) use of aspirin; Z79.4 Long term (current) use of insulin; Z79.899 Other long term (current) drug therapy; Z88.1 Allergy status to other antibiotic agents; Z91.018 Allergy to other foods
CPT/HCPCS: 96372; 99283; J1885

== ENCOUNTER 2021-02-11 18:16 | Emergency (ER) | payer MEDICARE, MEDICAID ==
[~2021-02-11] VITALS: Ht 182.9 cm; Wt 135.0 kg
[2021-02-11 18:49] VITALS: BP 169/85
[2021-02-11 19:32] LABS: BASOPHILS # (AUTO) 0.1 X10'3 (0-0.2); BASOPHILS % (AUTO) 0.9 % (0-1); EOSINOPHILS # (AUTO) 0.9 X10'3 (0-0.9); EOSINOPHILS % (AUTO) 8.8 % (0-6); HEMATOCRIT 41.3 % (35.0-45.0); HEMOGLOBIN 13.5 g/dl (12.0-16.0); LYMPHOCYTES # (AUTO) 2.4 X10'3 (1.1-4.8); LYMPHOCYTES % (AUTO) 24.3 % (21-51); MEAN CORPUSCULAR HEMOGLOBIN 29.4 PG (27.0-31.0); MEAN CORPUSCULAR HGB CONC 32.7 g/dL (33.0-36.5); MEAN PLATELET VOLUME 8.4 FL (7.4-10.4); MONOCYTES # (AUTO) 0.9 X10'3 (0-0.9); MONOCYTES % (AUTO) 9.1 % (2-12); NEUTROPHILS # (AUTO) 5.7 X10'3 (1.8-7.7); NEUTROPHILS % (AUTO) 56.9 % (42-75); PLATELET COUNT 423 X10'3 (140-440)
[2021-02-11 19:43] LABS: ALANINE AMINOTRANSFERASE 17 U/L (12-78); ALBUMIN 3.2 G/DL (3.4-5.0); ALBUMIN/GLOBULIN RATIO 0.8 (1.1-1.5); ALKALINE PHOSPHATASE 76 IU/L (46-116); ANION GAP 10 (8-16); ASPARTATE AMINO TRANSFERASE 12 U/L (10-37); BILIRUBIN,TOTAL 0.2 MG/DL (0.1-1.0); BLOOD UREA NITROGEN 35 MG/DL (7-18); BUN/CREATININE RATIO 18.9 (6.6-38.0); CALCIUM 9.5 MG/DL (8.5-10.1); CHLORIDE 102 MMOL/L (99-107); CREATININE 1.85 MG/DL (0.40-0.90); GLUCOSE 290 MG/DL (70-104); POTASSIUM 4.6 MMOL/L (3.5-5.1); SODIUM 139 MMOL/L (135-145); TOTAL CARBON DIOXIDE 26.6 MMOL/L (24-32); TOTAL PROTEIN 7.2 G/DL (6.4-8.2); eGFR 28 ML/MIN
--- NOTE | 2021-02-11 22:00 | NUR ---
NOT IN LOBBY
--- NOTE | 2021-02-11 22:30 | NUR ---
NOT IN LOBBY
--- NOTE | 2021-02-11 22:46 | NUR ---
NOT IN LOBBY
== END 2021-02-12 02:50 | disposition left against medical advice (07) ==
LOC: ER 18:16
DX: R53.1 Weakness (principal); Z53.21 Procedure and treatment not carried out due to patient leaving prior to being seen by health care provider
CPT/HCPCS: 36415; 71045; 80053; 83880; 84484; 85025; 93005

== ENCOUNTER 2021-03-19 13:40 | Emergency (ER) | payer MEDICARE, MEDICAID ==
[~2021-03-19] VITALS: Ht 182.9 cm; Wt 127.7 kg
[~2021-03-19 13:40] MED LIST changes: -ALPR1TAB7 PO; +CARSR60C PO; -DEXT30TA10 PO; -DILT120C51 PO; -ESZO3TAB66 PO; -LAMO25TA5 PO; -LAMO25TA94 PO; +LISI10TA27 PO; -LISI2.5T2 PO; +LURA120T PO; +METH5TAB4 PO; +OLAN-1 PO; -PALI9TAB PO; +ZOLP6.252 PO
[2021-03-19] MEDS ORDERED: acetaminophen 325mg tablet PO ONE (18:15)
[2021-03-19] MEDS ORDERED: normal saline 1000ml 1,000 ML IV ONE (18:50)
[2021-03-19 18:57] LABS: BASOPHILS # (AUTO) 0.1 X10'3 (0-0.2); BASOPHILS % (AUTO) 0.7 % (0-1); EOSINOPHILS # (AUTO) 0.5 X10'3 (0-0.9); EOSINOPHILS % (AUTO) 4.9 % (0-6); HEMATOCRIT 44.3 % (35.0-45.0); HEMOGLOBIN 14.4 g/dl (12.0-16.0); LYMPHOCYTES # (AUTO) 3.2 X10'3 (1.1-4.8); LYMPHOCYTES % (AUTO) 28.4 % (21-51); MEAN CORPUSCULAR HGB CONC 32.5 g/dL (33.0-36.5); MEAN CORPUSCULAR VOLUME 89.2 FL (78-98); MEAN PLATELET VOLUME 8.5 FL (7.4-10.4); MONOCYTES # (AUTO) 0.9 X10'3 (0-0.9); NEUTROPHILS # (AUTO) 6.4 X10'3 (1.8-7.7); PLATELET COUNT 416 X10'3 (140-440); RED BLOOD COUNT 4.96 X10'6 (4.20-5.60); RED CELL DISTRIBUTION WIDTH 14.7 % (11.5-14.5); WHITE BLOOD COUNT 11.1 X10'3 (4.5-11.0)
[2021-03-19] MEDS ORDERED: ACET-1025 PO (19:13)
--- NOTE | 2021-03-19 19:25 | NUR ---
PA REPORTS PT DOES NOT NEED IV OR IVF
[2021-03-19 19:32] VITALS: BP 151/78
== END 2021-03-19 19:33 | disposition home or self-care (01) ==
LOC: ER 13:42
DX: R10.31 Right lower quadrant pain (principal); E78.00 Pure hypercholesterolemia, unspecified; I10 Essential (primary) hypertension; E11.9 Type 2 diabetes mellitus without complications; G89.29 Other chronic pain; F31.9 Bipolar disorder, unspecified; Z85.9 Personal history of malignant neoplasm, unspecified; Z98.890 Other specified postprocedural states; Z88.1 Allergy status to other antibiotic agents; Z91.018 Allergy to other foods; Z79.4 Long term (current) use of insulin; Z79.82 Long term (current) use of aspirin; Z79.899 Other long term (current) drug therapy
CPT/HCPCS: 36415; 85025; 93926; 99284

== ENCOUNTER 2021-04-10 13:52 | Emergency (ER) | payer MEDICARE, MEDICAID ==
[~2021-04-10] VITALS: Ht 182.9 cm; Wt 127.4 kg
[2021-04-10 15:17] LABS: BASOPHILS # (AUTO) 0.1 X10'3 (0-0.2); BASOPHILS % (AUTO) 0.6 % (0-1); EOSINOPHILS % (AUTO) 10.3 % (0-6); HEMATOCRIT 45.7 % (35.0-45.0); HEMOGLOBIN 14.7 g/dl (12.0-16.0); LYMPHOCYTES # (AUTO) 2.4 X10'3 (1.1-4.8); MEAN CORPUSCULAR HEMOGLOBIN 29.2 PG (27.0-31.0); MEAN CORPUSCULAR HGB CONC 32.1 g/dL (33.0-36.5); MEAN CORPUSCULAR VOLUME 91.1 FL (78-98); MEAN PLATELET VOLUME 8.8 FL (7.4-10.4); MONOCYTES # (AUTO) 0.9 X10'3 (0-0.9); MONOCYTES % (AUTO) 9.6 % (2-12); NEUTROPHILS # (AUTO) 5.5 X10'3 (1.8-7.7); NEUTROPHILS % (AUTO) 55.5 % (42-75); PLATELET COUNT 452 X10'3 (140-440); RED BLOOD COUNT 5.02 X10'6 (4.20-5.60); RED CELL DISTRIBUTION WIDTH 14.7 % (11.5-14.5); WHITE BLOOD COUNT 9.9 X10'3 (4.5-11.0)
[2021-04-10 15:27] LABS: ALANINE AMINOTRANSFERASE 27 U/L (12-78); ALBUMIN 3.5 G/DL (3.4-5.0); ALBUMIN/GLOBULIN RATIO 0.9 (1.1-1.5); ALKALINE PHOSPHATASE 86 IU/L (46-116); ANION GAP 6 (8-16); ASPARTATE AMINO TRANSFERASE 21 U/L (10-37); BILIRUBIN,TOTAL 0.2 MG/DL (0.1-1.0); BLOOD UREA NITROGEN 32 MG/DL (7-18); BUN/CREATININE RATIO 21.9 (6.6-38.0); CALCIUM 9.6 MG/DL (8.5-10.1); CHLORIDE 106 MMOL/L (99-107); CREATININE 1.46 MG/DL (0.40-0.90); GLUCOSE 281 MG/DL (70-104); POTASSIUM 4.9 MMOL/L (3.5-5.1); SODIUM 142 MMOL/L (135-145); TOTAL CARBON DIOXIDE 29.6 MMOL/L (24-32); TOTAL PROTEIN 7.3 G/DL (6.4-8.2); eGFR 37 ML/MIN
[2021-04-10 15:38] LABS: ETHANOL < 0.010 GM/DL (0.0-0.010)
--- NOTE | 2021-04-10 16:58 | NUR ---
Unable to bring patient back to a room, due to high volume of patients. Patient reported to registration that she wanted to leave. Patient left ER lobby prior to be being able to come speak with the patient. Carolyn ACOSTA aware of elopement.
== END 2021-04-10 18:08 | disposition left against medical advice (07) ==
LOC: ER 13:52
DX: F31.9 Bipolar disorder, unspecified (principal); E78.00 Pure hypercholesterolemia, unspecified; I10 Essential (primary) hypertension; E11.9 Type 2 diabetes mellitus without complications; G89.29 Other chronic pain; Z85.9 Personal history of malignant neoplasm, unspecified; Z98.890 Other specified postprocedural states; Z88.1 Allergy status to other antibiotic agents; Z91.018 Allergy to other foods; Z79.82 Long term (current) use of aspirin; Z79.4 Long term (current) use of insulin; Z79.899 Other long term (current) drug therapy
CPT/HCPCS: 36415; 80053; 80320; 84443; 85025; 99284

== ENCOUNTER 2021-07-16 15:14 | Emergency (ER) | payer MEDICARE, MEDICAID ==
[~2021-07-16] VITALS: Ht 182.9 cm; Wt 126.8 kg
[2021-07-16 15:58] VITALS: BP 140/62
[2021-07-16] MEDS ORDERED: orphenadrine citrate 60mg/2ml inj. IM ONE (19:35)
[2021-07-16] MEDS ORDERED: LIDOcaine 1% W/epiNEPHrine 1:100,000 20ml vial SQ ONE (19:35)
[2021-07-16] MEDS ORDERED: BUPIVAcaine/PF 2.5 mg/ml (0.25%) 30ml vial IJ ONE (19:35)
[2021-07-16] MEDS ORDERED: TRAM50TA2 PO (19:59)
--- NOTE | 2021-07-16 20:27 | NUR ---
PT WAS DISCHARGED BEFORE NURSING ASSESSMENTS DONE
== END 2021-07-16 20:21 | disposition home or self-care (01) ==
LOC: ER 15:15
DX: M54.50 Low back pain, unspecified (principal); R25.2 Cramp and spasm; E78.00 Pure hypercholesterolemia, unspecified; I10 Essential (primary) hypertension; E11.9 Type 2 diabetes mellitus without complications; G89.29 Other chronic pain; F31.9 Bipolar disorder, unspecified; Z85.9 Personal history of malignant neoplasm, unspecified; Z98.890 Other specified postprocedural states; Z88.1 Allergy status to other antibiotic agents; Z91.018 Allergy to other foods; Z79.82 Long term (current) use of aspirin; Z79.4 Long term (current) use of insulin; Z79.899 Other long term (current) drug therapy
CPT/HCPCS: 20552; 96372; 99284; J2360

== ENCOUNTER 2021-07-24 07:13 | Emergency (ER) | payer MEDICARE, MEDICAID ==
[~2021-07-24] VITALS: Ht 182.9 cm; Wt 122.7 kg
[~2021-07-24 07:13] MED LIST changes: +TRAM50TA2 PO
[2021-07-24 07:17] VITALS: BP 137/69
[2021-07-24] MEDS ORDERED: LIDOcaine 5% patch TP STA (08:30)
[2021-07-24] MEDS ORDERED: METH4TAB81 PO (08:59)
[2021-07-24] MEDS ORDERED: GABA-530 PO (08:59)
== END 2021-07-24 09:16 | disposition home or self-care (01) ==
LOC: ER 07:14
DX: M54.50 Low back pain, unspecified (principal); M53.3 Sacrococcygeal disorders, not elsewhere classified; E78.00 Pure hypercholesterolemia, unspecified; I10 Essential (primary) hypertension; E11.9 Type 2 diabetes mellitus without complications; G89.29 Other chronic pain; F31.9 Bipolar disorder, unspecified; Z85.9 Personal history of malignant neoplasm, unspecified; Z98.890 Other specified postprocedural states; Z88.1 Allergy status to other antibiotic agents; Z91.018 Allergy to other foods; Z79.82 Long term (current) use of aspirin; Z79.4 Long term (current) use of insulin; Z79.899 Other long term (current) drug therapy
CPT/HCPCS: 99283

== ENCOUNTER 2021-07-26 18:56 | Emergency (ER) | payer MEDICARE, MEDICAID ==
[~2021-07-26] VITALS: Ht 182.9 cm; Wt 122.7 kg
[~2021-07-26 18:56] MED LIST changes: +GABA-530 PO; +METH4TAB81 PO
[2021-07-26 18:57] VITALS: BP 137/92
[2021-07-26] MEDS ORDERED: ondansetron 4mg rapidly disintigrating tab PO ONE (22:20)
[2021-07-26] MEDS ORDERED: morphine 4 MG/ML inj SYRINge IM ONE (22:20)
[2021-07-26] MEDS ORDERED: ORPH100T2 PO (22:36)
== END 2021-07-26 23:31 | disposition home or self-care (01) ==
LOC: ER 22:27
DX: G89.29 Other chronic pain (principal); M54.6 Pain in thoracic spine; E78.00 Pure hypercholesterolemia, unspecified; I10 Essential (primary) hypertension; E11.9 Type 2 diabetes mellitus without complications; Z87.81 Personal history of (healed) traumatic fracture; Z85.9 Personal history of malignant neoplasm, unspecified; Z88.1 Allergy status to other antibiotic agents; Z91.018 Allergy to other foods; Z91.013 Allergy to seafood; Z79.82 Long term (current) use of aspirin; Z79.4 Long term (current) use of insulin; Z79.899 Other long term (current) drug therapy
CPT/HCPCS: 96372; 99283; J2270

== ENCOUNTER 2021-08-09 19:35 | Emergency (ER) | payer MEDICARE, MEDICAID ==
[~2021-08-09] VITALS: Ht 182.9 cm; Wt 122.7 kg
[~2021-08-09 19:35] MED LIST changes: +ORPH100T2 PO
[2021-08-09] MEDS ORDERED: ZOLP12.543 PO (20:22)
[2021-08-09] MEDS ORDERED: METF-436 PO (20:23)
[2021-08-09] MEDS ORDERED: DILT60CA2 PO (20:24)
[2021-08-09] MEDS ORDERED: LAMO100T65 PO ×2 (20:24→20:25)
[2021-08-09] MEDS ORDERED: VENL150T3 PO (20:26)
[2021-08-09] MEDS ORDERED: LURA120T PO (20:26)
[2021-08-09] MEDS ORDERED: EMPA1TAB3 PO (20:27)
[2021-08-09] MEDS ORDERED: METH30CP PO (20:28)
[2021-08-09] MEDS ORDERED: HYDR-3686 PO (20:28)
[2021-08-09] MEDS ORDERED: FENO134C9 PO (20:29)
[2021-08-09] MEDS ORDERED: ASPI-611 PO (20:30)
[2021-08-09] MEDS ORDERED: OLAN5TAB75 PO (20:30)
[2021-08-09] MEDS ORDERED: ROSU40TA22 PO (20:31)
[2021-08-09] MEDS ORDERED: CLON0.1T2 PO (20:32)
[2021-08-09] MEDS ORDERED: IPRA3AMP9 IH (20:34)
[2021-08-09] MEDS ORDERED: INSU100C4 SQ (20:36)
[2021-08-09] MEDS ORDERED: LANTUS SQ (20:36)
[2021-08-09] MEDS ORDERED: UMEC1DIS PO (20:37)
[2021-08-09] MEDS ORDERED: EZET10TA6 PO (20:38)
[2021-08-09] MEDS ORDERED: NITR0.4T48 SL (20:38)
[2021-08-09 20:43] LABS: CLARITY,URINE CLEAR (Clear); COLOR,URINE YELLOW (Yellow); GLUCOSE, URINE >=1000 mg/dl (Neg); KETONES,URINE TRACE mg/dl (Neg); LEUKOCYTE ESTERASE ,URINE NEGATIVE (Neg); NITRITES, URINE NEGATIVE (Neg); OCCULT BLOOD,URINE NEGATIVE (Neg); PH,URINE 5.5 (4.8-8.0); PROTEIN,URINE 100 mg/dl (Neg); UROBILINOGEN,URINE 0.2 E.U/dL (0.2-1.0)
[2021-08-09 20:44] LABS: BASOPHILS # (AUTO) 0.1 X10'3 (0-0.2); BASOPHILS % (AUTO) 0.9 % (0-1); EOSINOPHILS # (AUTO) 0.8 X10'3 (0-0.9); HEMATOCRIT 45.4 % (35.0-45.0); HEMOGLOBIN 14.7 g/dl (12.0-16.0); LYMPHOCYTES # (AUTO) 2.8 X10'3 (1.1-4.8); MEAN CORPUSCULAR HEMOGLOBIN 29.7 PG (27.0-31.0); MEAN CORPUSCULAR HGB CONC 32.4 g/dL (33.0-36.5); MEAN CORPUSCULAR VOLUME 91.6 FL (78-98); MEAN PLATELET VOLUME 8.9 FL (7.4-10.4); MONOCYTES # (AUTO) 0.7 X10'3 (0-0.9); MONOCYTES % (AUTO) 6.4 % (2-12); NEUTROPHILS # (AUTO) 7.1 X10'3 (1.8-7.7); NEUTROPHILS % (AUTO) 61.7 % (42-75); PLATELET COUNT 456 X10'3 (140-440); RED BLOOD COUNT 4.96 X10'6 (4.20-5.60); RED CELL DISTRIBUTION WIDTH 14.5 % (11.5-14.5); WHITE BLOOD COUNT 11.6 X10'3 (4.5-11.0)
[2021-08-09 20:47] LABS: UA COLLECTION TYPE CLN CATCH MIDSTREAM
[2021-08-09 20:48] LABS: BACTERIA,URINE NONE SEEN /HPF (Neg); RBC,URINE 0-2 /HPF (0-2); SQUAMOUS EPITHELIAL CELL,UR FEW /LPF (FEW); WBC,URINE NONE SEEN /HPF (0-4)
--- NOTE | 2021-08-09 20:53 | NUR ---
DAVE Aguilar notified of pt's 426 bg. instructed to treat with pt's lantus 40 units
[2021-08-09] MEDS ORDERED: nitroGLYCERIN 0.4mg SUBLingual tab SL PRN (20:55)
[2021-08-09] MEDS ORDERED: ipratropium/albuterol 3ml nebule IH PRN (20:55)
[2021-08-09] MEDS ORDERED: zolpidem 5mg tablet PO PRN (20:55)
--- NOTE | 2021-08-09 20:59 | NUR ---
pt interviewed for suicidal ideation. pt reports ongoing life stressors, having no support, recent fight with friend as precipitating factors. pt has hx of suicide attempts, "too many to report." pt presents as depressed, tearful. pt is not delusional, not psychotic, no hallucinations. Pt is cooperative and friendly during 1:1. pt reports having taking all of her hs meds except ambien and lantus.
[2021-08-09] MEDS ORDERED: lamoTRIgine 100mg tablet PO SCH (21:00)
[2021-08-09] MEDS ORDERED: hydrOXYzine 25 MG tablet PO SCH (21:00)
[2021-08-09] MEDS ORDERED: insulin glargine (Lantus) pen - multi-dose SQ SCH (21:00)
[2021-08-09] MEDS ORDERED: atorvastatin 20mg tablet PO SCH (21:00)
[2021-08-09 21:07] LABS: ALANINE AMINOTRANSFERASE 29 U/L (12-78); ALBUMIN 3.4 G/DL (3.4-5.0); ALBUMIN/GLOBULIN RATIO 0.8 (1.1-1.5); ALKALINE PHOSPHATASE 81 IU/L (46-116); ANION GAP 12 (8-16); ASPARTATE AMINO TRANSFERASE 23 U/L (10-37); BILIRUBIN,TOTAL 0.2 MG/DL (0.1-1.0); BLOOD UREA NITROGEN 30 MG/DL (7-18); BUN/CREATININE RATIO 15.5 (6.6-38.0); CALCIUM 9.5 MG/DL (8.5-10.1); CHLORIDE 100 MMOL/L (99-107); CREATININE 1.94 MG/DL (0.40-0.90); GLUCOSE 414 MG/DL (70-104); POTASSIUM 4.3 MMOL/L (3.5-5.1); SODIUM 139 MMOL/L (135-145); TOTAL CARBON DIOXIDE 27.3 MMOL/L (24-32); TOTAL PROTEIN 7.5 G/DL (6.4-8.2); eGFR 26 ML/MIN
[2021-08-09 21:17] LABS: ETHANOL < 0.010 GM/DL (0.0-0.010)
[2021-08-09 21:29] LABS: ACETAMINOPHEN < 2.0 UG/ML (10-30)
[2021-08-09] MEDS ORDERED: normal saline 1000ml 1,000 ML IV ONE ×2 (21:35)
[2021-08-09 21:41] LABS: URINE AMPHETAMINE SCREEN NEGATIVE (Neg); URINE BARBITUATE SCREEN NEGATIVE (Neg); URINE BENZODIAZEPINES SCREEN NEGATIVE (Neg); URINE CANNABINOID SCREEN NEGATIVE (Neg); URINE COCAINE SCREEN NEGATIVE (Neg); URINE METHADONE SCREEN NEGATIVE (Neg); URINE OPIATE SCREEN NEGATIVE (Neg); URINE PHENCYCLIDINE SCREEN NEGATIVE (Neg)
--- NOTE | 2021-08-09 22:00 | NUR ---
pt appears to be sleeping, rr unlabored.
--- NOTE | 2021-08-09 23:58 | NUR ---
pt appears to be sleeping, rr unlabored.
[2021-08-10] MEDS ORDERED: ipratropium 0.5 MG/2.5ML nebule NEB SCH (03:00)
--- NOTE | 2021-08-10 03:17 | NUR ---
pt continues to sleep. no s/s of distress noted.
--- NOTE | 2021-08-10 04:58 | NUR ---
packet faxed to [facility]
--- NOTE | 2021-08-10 06:20 | NUR ---
PATIENT RECEIVED SLEEPING IN BED THIS MORNING. RESPIRATIONS EVEN, UNLABORED. NO S/S OF DISTRESS. WILL CONTINUE TO MONITOR.
[2021-08-10] MEDS ORDERED: insulin Lispro (HumaLOG) vial - multi-dose SQ SCH ×2 (07:05→08:00)
[2021-08-10] MEDS ORDERED: dextrose ORAL solution 15 GM/59 ML bottle PO PRN ×2 (07:05)
[2021-08-10] MEDS ORDERED: MESSAGE TO PHARMACY PO ONE (07:05)
[2021-08-10] MEDS ORDERED: glucagon, human recombinant 1mg kit SUBCUT PRN (07:05)
[2021-08-10] MEDS ORDERED: ipratropium 0.5 MG/2.5ML nebule NEB PRN (07:05)
[2021-08-10] MEDS ORDERED: venlafaxine XR 75mg capsule (Q24H) PO SCH (07:30)
[2021-08-10] MEDS ORDERED: lamoTRIgine 100mg tablet PO SCH (08:00)
[2021-08-10] MEDS ORDERED: LINAGLIPTIN PO SCH (08:00)
[2021-08-10] MEDS ORDERED: fenofibrate 145mg tablet PO SCH (08:00)
[2021-08-10] MEDS ORDERED: methylphenidate 5mg tablet PO SCH (08:00)
[2021-08-10] MEDS ORDERED: ezetimibe 10mg tablet PO SCH (08:00)
[2021-08-10] MEDS ORDERED: metFORMIN 500mg tablet PO SCH (08:00)
[2021-08-10] MEDS ORDERED: EMPAGLIFLOZIN PO SCH (08:00)
[2021-08-10] MEDS ORDERED: diltiazem SR 60mg capsule (twice daily) PO SCH (08:00)
[2021-08-10] MEDS ORDERED: cloNIDine 0.1 mg tablet PO SCH (08:00)
[2021-08-10] MEDS ORDERED: aspirin 81mg, enteric-coated 1 TAB TABLET.DR PO SCH (08:00)
--- NOTE | 2021-08-10 08:45 | NUR ---
AM BLOOD SUGAR OF 146 MG/DL. PRN HUMALOG 4 UNITS SC GIVEN AT 0843 INSTEAD OF 7 UNITS PER SLIDING SCALE. PATIENT INDICATES 7 UNITS CAUSES HER BLOOD SUGAR TO BOTTOM OUT. WILL CONTINUE TO MONITOR.
[2021-08-10 08:50] LABS: HEMOGLOBIN A1C 10.3 % (4.5-6.2)
[2021-08-10 08:55] VITALS: BP 143/69
--- NOTE | 2021-08-10 10:25 | NUR ---
PATIENT DISCHARGED FROM ER OVERFLOW AT 1020 AND ESCORTED FROM UNIT. PERSONAL BELONGINGS AND VALUABLES RETURNED TO PATIENT. DISCHARGE INSTRUCTIONS REVIEWED WITH PATIENT, VERBALIZED UNDERSTANDING. 20G IV TO L. AC REMOVED PRIOR TO DISCHARGE. CATHETER TIP INTACT. NO S/S OF REDNESS/ SWELLING/ OR INFECTION. DRESSING APPLIED TO SITE. PATIENT LEFT HOSPITAL BY POV WITHOUT INCIDENT.
[2021-08-10] MEDS ORDERED: lurasidone 60mg tablet PO SCH (17:00)
[2021-08-10] MEDS ORDERED: OLANZAPINE 5 MG TABLET PO SCH (21:00)
== END 2021-08-10 10:20 | disposition home or self-care (01) ==
LOC: ER 19:36
DX: R45.851 Suicidal ideations (principal); Z20.822 Contact with and (suspected) exposure to COVID-19; E11.65 Type 2 diabetes mellitus with hyperglycemia; E86.0 Dehydration; E78.00 Pure hypercholesterolemia, unspecified; G89.29 Other chronic pain; F31.9 Bipolar disorder, unspecified; Z85.9 Personal history of malignant neoplasm, unspecified; Z98.890 Other specified postprocedural states; Z88.1 Allergy status to other antibiotic agents; Z88.8 Allergy status to other drugs, medicaments and biological substances; Z79.82 Long term (current) use of aspirin; Z79.4 Long term (current) use of insulin; Z79.899 Other long term (current) drug therapy
CPT/HCPCS: 36415; 80053; 80305; 80320; 80329; 81001; 82948; 83036; 84443; 85025; 87635; 96360; 96361; 99285; C9803; J1815; J7030; 94760

== ENCOUNTER 2021-10-07 21:05 | Emergency (ER) | payer MEDICARE, MEDICAID ==
[~2021-10-07] VITALS: Ht 182.9 cm; Wt 126.4 kg
[~2021-10-07 21:05] MED LIST changes: +ASPI-611 PO; -ASPI81TA52 PO; -CARSR60C PO; -CYCL-1 PO; +DILT60CA2 PO; +EZET10TA6 PO; +FENO134C18 PO; -FENO145T26 PO; -GABA-530 PO; +INSU100C4 SQ; -INSU100V11 SQ; -INSU100V9 SQ; +IPRA3AMP9 IH; +LAMO100T65 PO; +LANTUS SQ; -LISI10TA27 PO; +METF-436 PO; -METF-438 PO; +METH30CP PO; -METH4TAB81 PO; -METH5TAB4 PO; +NITR0.4T48 SL; -OLAN-1 PO; +OLAN5TAB75 PO; -ORPH100T2 PO; -ROSU10TA2 PO; +ROSU40TA22 PO; -TRAM50TA2 PO; +UMEC1DIS PO; -VENL150C58 PO; +VENL150T3 PO; +ZOLP12.543 PO; -ZOLP6.252 PO
[2021-10-07 21:12] VITALS: BP 152/81
--- NOTE | 2021-10-07 23:30 | NUR ---
PT RESTING ON [place], NO C/O
== END 2021-10-08 00:29 | disposition home or self-care (01) ==
LOC: ER 21:06
DX: K21.9 Gastro-esophageal reflux disease without esophagitis (principal); T40.495A Adverse effect of other synthetic narcotics, initial encounter; E78.00 Pure hypercholesterolemia, unspecified; I10 Essential (primary) hypertension; E11.9 Type 2 diabetes mellitus without complications; G89.29 Other chronic pain; F31.9 Bipolar disorder, unspecified; Z85.9 Personal history of malignant neoplasm, unspecified; Z98.890 Other specified postprocedural states; Z88.1 Allergy status to other antibiotic agents; Z88.8 Allergy status to other drugs, medicaments and biological substances; Z79.82 Long term (current) use of aspirin; Z79.4 Long term (current) use of insulin; Z79.899 Other long term (current) drug therapy; Y92.89 Other specified places as the place of occurrence of the external cause
CPT/HCPCS: 99281

== ENCOUNTER 2021-10-26 19:36 | Emergency (ER) | payer MEDICARE, MEDICAID ==
[~2021-10-26] VITALS: Ht 182.9 cm; Wt 122.0 kg
[2021-10-26] MEDS ORDERED: acetaminophen 325mg tablet PO ONE (23:35)
[2021-10-26] MEDS ORDERED: ketorolac tromethamine 15mg/ml inj. IM ONE (23:35)
[2021-10-27] MEDS ORDERED: ONDA4TAB12 PO (02:55)
[2021-10-27] MEDS ORDERED: HYDR-3964 PO (02:55)
[2021-10-27 04:35] VITALS: BP 150/82
== END 2021-10-27 04:37 | disposition home or self-care (01) ==
LOC: ER 19:37
DX: S22.080A Wedge compression fracture of T11-T12 vertebra, initial encounter for closed fracture (principal); R20.0 Anesthesia of skin; E78.00 Pure hypercholesterolemia, unspecified; I10 Essential (primary) hypertension; E11.9 Type 2 diabetes mellitus without complications; G89.29 Other chronic pain; Z87.81 Personal history of (healed) traumatic fracture; Z85.9 Personal history of malignant neoplasm, unspecified; Z88.1 Allergy status to other antibiotic agents; Z91.018 Allergy to other foods; Z79.82 Long term (current) use of aspirin; Z79.4 Long term (current) use of insulin; Z79.899 Other long term (current) drug therapy; V49.40XA Driver injured in collision with unspecified motor vehicles in traffic accident, initial encounter; Y93.89 Activity, other specified; Y92.89 Other specified places as the place of occurrence of the external cause; Y99.8 Other external cause status
CPT/HCPCS: 72128; 96372; 99284; J1885

== ENCOUNTER 2021-11-03 09:24 | Emergency (ER) | payer MEDICARE, MEDICAID ==
[~2021-11-03] VITALS: Ht 182.9 cm; Wt 121.4 kg
[~2021-11-03 09:24] MED LIST changes: +HYDR-3964 PO; +ONDA4TAB12 PO
[2021-11-03 09:31] VITALS: BP 133/73
[2021-11-03] MEDS ORDERED: morphine 10mg/ml inj. IM ONE (11:40)
[2021-11-03] MEDS ORDERED: OXYC-145 PO (13:01)
== END 2021-11-03 13:21 | disposition home or self-care (01) ==
LOC: ER 09:25
DX: M54.50 Low back pain, unspecified (principal); G89.29 Other chronic pain; E78.00 Pure hypercholesterolemia, unspecified; I10 Essential (primary) hypertension; E11.9 Type 2 diabetes mellitus without complications; F31.9 Bipolar disorder, unspecified; Z85.9 Personal history of malignant neoplasm, unspecified; Z88.1 Allergy status to other antibiotic agents; Z91.018 Allergy to other foods; Z79.82 Long term (current) use of aspirin; Z79.4 Long term (current) use of insulin; Z79.899 Other long term (current) drug therapy
CPT/HCPCS: 96372; 99283; J2274

== ENCOUNTER 2021-11-05 11:37 | Emergency (ER) | payer MEDICARE, MEDICAID ==
[~2021-11-05] VITALS: Ht 182.9 cm; Wt 121.4 kg
[~2021-11-05 11:37] MED LIST changes: +OXYC-145 PO
--- NOTE | 2021-11-05 13:23 | NUR ---
IM GIVEN PT TO CT WITH TECH
[2021-11-05] MEDS ORDERED: morphine 4 MG/ML inj SYRINge IM ONE (13:25)
--- NOTE | 2021-11-05 13:52 | NUR ---
PT BACK FROM CT
[2021-11-05 14:40] VITALS: BP 122/70
[2021-11-05] MEDS ORDERED: OXYC-150 PO (14:53)
== END 2021-11-05 15:10 | disposition home or self-care (01) ==
LOC: ER 11:37
DX: M54.41 Lumbago with sciatica, right side (principal); E78.00 Pure hypercholesterolemia, unspecified; I10 Essential (primary) hypertension; E11.9 Type 2 diabetes mellitus without complications; G89.29 Other chronic pain; F31.9 Bipolar disorder, unspecified; Z85.9 Personal history of malignant neoplasm, unspecified; Z98.890 Other specified postprocedural states; Z88.1 Allergy status to other antibiotic agents; Z91.02 Food additives allergy status; Z79.82 Long term (current) use of aspirin; Z79.4 Long term (current) use of insulin; Z79.899 Other long term (current) drug therapy
CPT/HCPCS: 72131; 96372; 99284; J2270

== ENCOUNTER 2021-11-07 18:41 | Emergency (ER) | payer MEDICARE, MEDICAID ==
[~2021-11-07] VITALS: Ht 183.5 cm; Wt 121.4 kg
[~2021-11-07 18:41] MED LIST changes: +OXYC-150 PO
[2021-11-07 18:55] VITALS: BP 150/91
[2021-11-07] MEDS ORDERED: morphine 4 MG/ML inj SYRINge IM ONE (19:35)
== END 2021-11-07 19:43 | disposition home or self-care (01) ==
LOC: ER 18:42
DX: M54.89 Other dorsalgia (principal); G89.29 Other chronic pain; E78.00 Pure hypercholesterolemia, unspecified; I10 Essential (primary) hypertension; E11.9 Type 2 diabetes mellitus without complications; F31.9 Bipolar disorder, unspecified; F17.200 Nicotine dependence, unspecified, uncomplicated; Z85.9 Personal history of malignant neoplasm, unspecified; Z98.890 Other specified postprocedural states; Z72.89 Other problems related to lifestyle; Z88.1 Allergy status to other antibiotic agents; Z91.02 Food additives allergy status; Z79.82 Long term (current) use of aspirin; Z79.4 Long term (current) use of insulin; Z79.899 Other long term (current) drug therapy
CPT/HCPCS: 96372; 99283; J2270

== ENCOUNTER 2021-11-22 22:01 | Emergency (ER) | payer MEDICARE, MEDICAID ==
[~2021-11-22] VITALS: Ht 182.9 cm; Wt 126.0 kg
[2021-11-22] MEDS ORDERED: morphine 4 MG/ML inj SYRINge IV ONE (23:05)
[2021-11-22] MEDS ORDERED: ondansetron/PF 4mg/2ml inj IV ONE (23:05)
[2021-11-22 23:22] LABS: BASOPHILS # (AUTO) 0.1 X10'3 (0-0.2); EOSINOPHILS # (AUTO) 0.5 X10'3 (0-0.9); EOSINOPHILS % (AUTO) 4.6 % (0-6); HEMATOCRIT 39.4 % (35.0-45.0); HEMOGLOBIN 12.5 g/dl (12.0-16.0); LYMPHOCYTES % (AUTO) 29.5 % (21-51); MEAN CORPUSCULAR HEMOGLOBIN 28.7 PG (27.0-31.0); MEAN CORPUSCULAR HGB CONC 31.7 g/dL (33.0-36.5); MEAN CORPUSCULAR VOLUME 90.5 FL (78-98); MEAN PLATELET VOLUME 8.9 FL (7.4-10.4); NEUTROPHILS # (AUTO) 5.6 X10'3 (1.8-7.7); NEUTROPHILS % (AUTO) 54.9 % (42-75); PLATELET COUNT 402 X10'3 (140-440); RED BLOOD COUNT 4.35 X10'6 (4.20-5.60); RED CELL DISTRIBUTION WIDTH 14.8 % (11.5-14.5); WHITE BLOOD COUNT 10.2 X10'3 (4.5-11.0)
[2021-11-22 23:32] LABS: ALANINE AMINOTRANSFERASE 25 U/L (12-78); ALBUMIN/GLOBULIN RATIO 0.9 (1.1-1.5); ALKALINE PHOSPHATASE 81 IU/L (46-116); ANION GAP 8 (8-16); ASPARTATE AMINO TRANSFERASE 17 U/L (10-37); BILIRUBIN,TOTAL 0.2 MG/DL (0.1-1.0); BLOOD UREA NITROGEN 47 MG/DL (7-18); BUN/CREATININE RATIO 25.8 (6.6-38.0); CALCIUM 8.8 MG/DL (8.5-10.1); CHLORIDE 102 MMOL/L (99-107); CREATININE 1.82 MG/DL (0.40-0.90); POTASSIUM 5.5 MMOL/L (3.5-5.1); SODIUM 136 MMOL/L (135-145); TOTAL CARBON DIOXIDE 26.5 MMOL/L (24-32); TOTAL PROTEIN 6.3 G/DL (6.4-8.2); eGFR 28 ML/MIN
[2021-11-22 23:36] LABS: GLUCOSE 517 MG/DL (70-104)
[2021-11-23] MEDS ORDERED: normal saline 1000ml 1,000 ML IV ONE ×2 (00:05)
[2021-11-23 02:36] VITALS: BP 110/54
== END 2021-11-23 02:48 | disposition home or self-care (01) ==
LOC: ER 22:02
DX: M54.50 Low back pain, unspecified (principal); E11.65 Type 2 diabetes mellitus with hyperglycemia; M79.604 Pain in right leg; E78.00 Pure hypercholesterolemia, unspecified; I10 Essential (primary) hypertension; G89.29 Other chronic pain; Z85.9 Personal history of malignant neoplasm, unspecified; Z87.19 Personal history of other diseases of the digestive system; Z72.89 Other problems related to lifestyle; Z88.1 Allergy status to other antibiotic agents; Z91.018 Allergy to other foods; Z91.013 Allergy to seafood; Z79.82 Long term (current) use of aspirin; Z79.4 Long term (current) use of insulin; Z79.899 Other long term (current) drug therapy
CPT/HCPCS: 36415; 80053; 82948; 85025; 96361; 96374; 96375; 99285; J2270; J2405; J7030

== ENCOUNTER 2022-05-31 04:19 | Emergency (ER) | payer MEDICARE, MEDICAID ==
[~2022-05-31] VITALS: Ht 182.9 cm; Wt 110.5 kg
[~2022-05-31 04:19] MED LIST changes: -HYDR-3964 PO
[2022-05-31 04:48] VITALS: BP 144/80
== END 2022-05-31 07:53 | disposition left against medical advice (07) ==
LOC: ER 04:20
DX: R09.81 Nasal congestion (principal); Z53.21 Procedure and treatment not carried out due to patient leaving prior to being seen by health care provider

== ENCOUNTER 2022-05-31 17:28 | Emergency (ER) | payer MEDICARE, MEDICAID ==
[~2022-05-31] VITALS: Ht 182.9 cm; Wt 110.0 kg
[2022-05-31 17:44] VITALS: BP 137/76
[2022-05-31 18:23] LABS: BASOPHILS # (AUTO) 0.1 X10'3 (0-0.2); BASOPHILS % (AUTO) 1.4 % (0-1); EOSINOPHILS % (AUTO) 14.2 % (0-6); HEMATOCRIT 43.2 % (35.0-45.0); LYMPHOCYTES # (AUTO) 2.4 X10'3 (1.1-4.8); LYMPHOCYTES % (AUTO) 32.4 % (21-51); MEAN CORPUSCULAR HEMOGLOBIN 29.9 PG (27.0-31.0); MEAN CORPUSCULAR HGB CONC 32.5 g/dL (33.0-36.5); MEAN CORPUSCULAR VOLUME 92.2 FL (78-98); MEAN PLATELET VOLUME 8.6 FL (7.4-10.4); MONOCYTES # (AUTO) 0.9 X10'3 (0-0.9); MONOCYTES % (AUTO) 12.5 % (2-12); NEUTROPHILS # (AUTO) 2.9 X10'3 (1.8-7.7); NEUTROPHILS % (AUTO) 39.5 % (42-75); PLATELET COUNT 403 X10'3 (140-440); RED BLOOD COUNT 4.69 X10'6 (4.20-5.60); RED CELL DISTRIBUTION WIDTH 14.7 % (11.5-14.5); WHITE BLOOD COUNT 7.3 X10'3 (4.5-11.0)
[2022-05-31 18:39] LABS: ALANINE AMINOTRANSFERASE 30 U/L (12-78); ALBUMIN 3.3 G/DL (3.4-5.0); ALBUMIN/GLOBULIN RATIO 0.8 (1.1-1.5); ALKALINE PHOSPHATASE 79 IU/L (46-116); ANION GAP 8 (8-16); ASPARTATE AMINO TRANSFERASE 24 U/L (10-37); BILIRUBIN,TOTAL 0.1 MG/DL (0.1-1.0); BLOOD UREA NITROGEN 36 MG/DL (7-18); BUN/CREATININE RATIO 25.9 (6.6-38.0); CALCIUM 10.2 MG/DL (8.5-10.1); CHLORIDE 104 MMOL/L (99-107); CREATININE 1.39 MG/DL (0.40-0.90); GLUCOSE 256 MG/DL (70-104); POTASSIUM 5.3 MMOL/L (3.5-5.1); SODIUM 142 MMOL/L (135-145); TOTAL CARBON DIOXIDE 29.6 MMOL/L (24-32); TOTAL PROTEIN 7.5 G/DL (6.4-8.2); eGFR 39 ML/MIN
== END 2022-06-01 01:24 | disposition left against medical advice (07) ==
LOC: ER 17:28
DX: R05.9 Cough, unspecified (principal); Z53.21 Procedure and treatment not carried out due to patient leaving prior to being seen by health care provider
CPT/HCPCS: 36415; 71046; 80053; 83605; 83880; 85025

== ENCOUNTER 2022-06-18 22:43 | Emergency (ER) | payer MEDICARE, MEDICAID ==
[~2022-06-18] VITALS: Ht 182.9 cm; Wt 115.0 kg
[~2022-06-18 22:43] MED LIST changes: -FENO134C18 PO; +FENO134C22 PO
[2022-06-18 23:15] VITALS: BP 120/76
[2022-06-19] MEDS ORDERED: ketorolac trometh inj. 60 MG/2 ML VIAL IM ONE (02:30)
== END 2022-06-19 02:49 | disposition home or self-care (01) ==
LOC: ER 22:43
DX: M25.462 Effusion, left knee (principal); M25.562 Pain in left knee; G89.29 Other chronic pain; M54.59 Other low back pain; E78.00 Pure hypercholesterolemia, unspecified; I10 Essential (primary) hypertension; E11.9 Type 2 diabetes mellitus without complications; Z88.1 Allergy status to other antibiotic agents; Z91.018 Allergy to other foods; Z79.899 Other long term (current) drug therapy; Z79.82 Long term (current) use of aspirin; X50.0XXA Overexertion from strenuous movement or load, initial encounter; Y93.89 Activity, other specified; Y92.89 Other specified places as the place of occurrence of the external cause; Y99.8 Other external cause status
CPT/HCPCS: 73564; 96372; 99283; J1885

== ENCOUNTER 2022-09-26 13:56 | Emergency (ER) | payer MEDICARE, MEDICAID ==
[~2022-09-26] VITALS: Ht 182.9 cm; Wt 110.0 kg
[2022-09-26 14:09] VITALS: BP 123/73
[2022-09-26] MEDS ORDERED: acetaminophen 325mg tablet PO ONE (14:20)
[2022-09-26] MEDS ORDERED: morphine 4 MG/ML inj SYRINge IM ONE (18:50)
[2022-09-26] MEDS ORDERED: HYDR-3965 PO (19:25)
[2022-09-26] MEDS ORDERED: ORPH100T2 PO (19:25)
== END 2022-09-26 19:47 | disposition home or self-care (01) ==
LOC: ER 13:57
DX: S72.402A Unspecified fracture of lower end of left femur, initial encounter for closed fracture (principal); S82.002A Unspecified fracture of left patella, initial encounter for closed fracture; M79.652 Pain in left thigh; I10 Essential (primary) hypertension; E78.00 Pure hypercholesterolemia, unspecified; E11.9 Type 2 diabetes mellitus without complications; Z88.1 Allergy status to other antibiotic agents; Z91.018 Allergy to other foods; X58.XXXA Exposure to other specified factors, initial encounter; Y93.89 Activity, other specified; Y92.89 Other specified places as the place of occurrence of the external cause; Y99.8 Other external cause status
CPT/HCPCS: 29505; 73564; 96372; 99283; J2270

== ENCOUNTER 2022-11-05 15:35 | Emergency (ER) | payer MEDICARE, MEDICAID ==
[~2022-11-05] VITALS: Ht 182.9 cm; Wt 116.0 kg
[~2022-11-05 15:35] MED LIST changes: +ORPH100T2 PO
[2022-11-05 15:46] VITALS: BP 133/64
[2022-11-05] MEDS ORDERED: acetaminophen 325mg tablet PO STA (16:00)
== END 2022-11-05 17:44 | disposition home or self-care (01) ==
LOC: ER 15:35
DX: M54.50 Low back pain, unspecified (principal); E78.00 Pure hypercholesterolemia, unspecified; E11.9 Type 2 diabetes mellitus without complications; F31.9 Bipolar disorder, unspecified; Z88.1 Allergy status to other antibiotic agents; Z91.018 Allergy to other foods; Z91.013 Allergy to seafood
CPT/HCPCS: 99282

== ENCOUNTER 2022-12-26 11:15 | Emergency (ER) | payer MEDICARE, MEDICAID ==
[~2022-12-26] VITALS: Ht 182.9 cm; Wt 116.8 kg
[~2022-12-26 11:15] MED LIST changes: -ORPH100T2 PO; +ORPH100T4 PO
[2022-12-26 11:32] VITALS: BP 109/59
== END 2022-12-26 12:35 | disposition home or self-care (01) ==
LOC: ER 11:15
DX: S81.812D Laceration without foreign body, left lower leg, subsequent encounter (principal); Z48.00 Encounter for change or removal of nonsurgical wound dressing; E78.00 Pure hypercholesterolemia, unspecified; I10 Essential (primary) hypertension; J44.9 Chronic obstructive pulmonary disease, unspecified; E11.9 Type 2 diabetes mellitus without complications; G89.29 Other chronic pain; Z87.81 Personal history of (healed) traumatic fracture; F31.9 Bipolar disorder, unspecified; Z88.1 Allergy status to other antibiotic agents; Z88.8 Allergy status to other drugs, medicaments and biological substances; Z91.013 Allergy to seafood; Z79.899 Other long term (current) drug therapy; Z79.82 Long term (current) use of aspirin; Z79.2 Long term (current) use of antibiotics; X58.XXXD Exposure to other specified factors, subsequent encounter
CPT/HCPCS: 99281

== ENCOUNTER 2023-03-07 14:54 | Emergency (ER) | payer MEDICARE, MEDICAID ==
[~2023-03-07] VITALS: Ht 182.9 cm; Wt 108.2 kg
[2023-03-07 15:33] VITALS: TEMP 97.9
[2023-03-07 16:31] LABS: CLARITY,URINE SLIGHTLY CLOUDY (Clear); COLOR,URINE YELLOW (Yellow); GLUCOSE, URINE >=1000 mg/dl (Neg); KETONES,URINE NEGATIVE (Neg); LEUKOCYTE ESTERASE ,URINE NEGATIVE (Neg); NITRITES, URINE NEGATIVE (Neg); OCCULT BLOOD,URINE NEGATIVE (Neg); PH,URINE 5.5 (4.8-8.0); PROTEIN,URINE 30 mg/dl (Neg); UROBILINOGEN,URINE 0.2 E.U/dL (0.2-1.0)
[2023-03-07 16:34] LABS: BASOPHILS % (AUTO) 0.6 % (0-1); EOSINOPHILS # (AUTO) 0.6 X10'3 (0-0.9); EOSINOPHILS % (AUTO) 7.9 % (0-6); HEMATOCRIT 39.6 % (35.0-45.0); LYMPHOCYTES # (AUTO) 2.4 X10'3 (1.1-4.8); MEAN CORPUSCULAR HEMOGLOBIN 29.8 PG (27.0-31.0); MEAN CORPUSCULAR HGB CONC 32.9 g/dL (33.0-36.5); MEAN CORPUSCULAR VOLUME 90.6 FL (78-98); MEAN PLATELET VOLUME 9.2 FL (7.4-10.4); MONOCYTES # (AUTO) 0.8 X10'3 (0-0.9); MONOCYTES % (AUTO) 10.5 % (2-12); NEUTROPHILS # (AUTO) 3.4 X10'3 (1.8-7.7); PLATELET COUNT 325 X10'3 (140-440); RED BLOOD COUNT 4.37 X10'6 (4.20-5.60); RED CELL DISTRIBUTION WIDTH 13.6 % (11.5-14.5); WHITE BLOOD COUNT 7.2 X10'3 (4.5-11.0)
[2023-03-07 16:42] LABS: ALANINE AMINOTRANSFERASE 25 U/L (12-78); ALBUMIN 3.1 G/DL (3.4-5.0); ALBUMIN/GLOBULIN RATIO 0.9 (1.1-1.5); ALKALINE PHOSPHATASE 97 IU/L (46-116); ANION GAP 9 (8-16); ASPARTATE AMINO TRANSFERASE 20 U/L (10-37); BILIRUBIN,TOTAL 0.2 MG/DL (0.1-1.0); BLOOD UREA NITROGEN 43 MG/DL (7-18); BUN/CREATININE RATIO 19.4 (10.0-20.0); CALCIUM 10.1 MG/DL (8.5-10.1); CHLORIDE 97 MMOL/L (99-107); CREATININE 2.22 MG/DL (0.40-0.90); POTASSIUM 5.1 MMOL/L (3.5-5.1); SODIUM 132 MMOL/L (135-145); TOTAL CARBON DIOXIDE 26.3 MMOL/L (24-32); TOTAL PROTEIN 6.7 G/DL (6.4-8.2); eGFR 23 ML/MIN
[2023-03-07 16:42] LABS: UA COLLECTION TYPE CLN CATCH MIDSTREAM
[2023-03-07 16:43] LABS: WBC,URINE 20-30 /HPF (0-4)
[2023-03-07 16:44] LABS: BACTERIA,URINE 1+ /HPF (Neg); RBC,URINE NONE SEEN /HPF (0-2); SQUAMOUS EPITHELIAL CELL,UR FEW /LPF (FEW); WBC CLUMPS,URINE FEW /HPF (NEGATIVE)
[2023-03-07 17:11] LABS: GLUCOSE 416 MG/DL (70-104)
[2023-03-07] MEDS ORDERED: normal saline 1000ml 1,000 ML IV ONE ×2 (18:30→20:25)
[2023-03-07] MEDS ORDERED: meclizine 12.5mg tablet PO ONE (18:35)
[2023-03-07] MEDS ORDERED: LORazepam 1 MG tablet PO ONE (18:35)
[2023-03-07 21:22] VITALS: BP 107/58; PULSE 52; RESP 16; O2SAT 99
== END 2023-03-07 21:32 | disposition home or self-care (01) ==
LOC: ER 14:54
DX: R53.1 Weakness (principal); R42 Dizziness and giddiness; E86.0 Dehydration; F19.10 Other psychoactive substance abuse, uncomplicated; E78.00 Pure hypercholesterolemia, unspecified; J44.9 Chronic obstructive pulmonary disease, unspecified; I12.0 Hypertensive chronic kidney disease with stage 5 chronic kidney disease or end stage renal disease; E11.22 Type 2 diabetes mellitus with diabetic chronic kidney disease; N18.9 Chronic kidney disease, unspecified; F31.9 Bipolar disorder, unspecified; F15.90 Other stimulant use, unspecified, uncomplicated; F12.90 Cannabis use, unspecified, uncomplicated; Z88.1 Allergy status to other antibiotic agents; Z91.018 Allergy to other foods; Z91.013 Allergy to seafood; Z79.82 Long term (current) use of aspirin; Z79.899 Other long term (current) drug therapy
CPT/HCPCS: 36415; 71045; 80053; 81001; 82948; 83880; 84484; 85025; 87077; 87088; 87186; 93005; 96360; 96361; 99285; J7030; J8597

== ENCOUNTER 2023-03-29 12:35 | Observation (INO) | payer MEDICARE, MEDICAID ==
[~2023-03-29] VITALS: Ht 182.9 cm; Wt 112.3 kg
[2023-03-29 12:52] LABS: BASOPHILS % (AUTO) 0.6 % (0-1); EOSINOPHILS # (AUTO) 0.8 X10'3 (0-0.9); EOSINOPHILS % (AUTO) 10.6 % (0-6); HEMATOCRIT 40.1 % (35.0-45.0); HEMOGLOBIN 12.8 g/dl (12.0-16.0); LYMPHOCYTES # (AUTO) 1.6 X10'3 (1.1-4.8); LYMPHOCYTES % (AUTO) 21.6 % (21-51); MEAN CORPUSCULAR HEMOGLOBIN 29.3 PG (27.0-31.0); MEAN CORPUSCULAR VOLUME 91.5 FL (78-98); MEAN PLATELET VOLUME 8.7 FL (7.4-10.4); MONOCYTES # (AUTO) 0.6 X10'3 (0-0.9); NEUTROPHILS # (AUTO) 4.3 X10'3 (1.8-7.7); NEUTROPHILS % (AUTO) 59.2 % (42-75); PLATELET COUNT 338 X10'3 (140-440); RED BLOOD COUNT 4.38 X10'6 (4.20-5.60); RED CELL DISTRIBUTION WIDTH 13.8 % (11.5-14.5); WHITE BLOOD COUNT 7.3 X10'3 (4.5-11.0)
[2023-03-29 13:07] LABS: ALANINE AMINOTRANSFERASE 19 U/L (12-78); ALBUMIN/GLOBULIN RATIO 0.8 (1.1-1.5); ALKALINE PHOSPHATASE 79 IU/L (46-116); ANION GAP 6 (8-16); ASPARTATE AMINO TRANSFERASE 17 U/L (10-37); BILIRUBIN,TOTAL 0.1 MG/DL (0.1-1.0); BLOOD UREA NITROGEN 34 MG/DL (7-18); CALCIUM 9.3 MG/DL (8.5-10.1); CHLORIDE 103 MMOL/L (99-107); CREATININE 1.36 MG/DL (0.40-0.90); GLUCOSE 299 MG/DL (70-104); POTASSIUM 4.6 MMOL/L (3.5-5.1); SODIUM 136 MMOL/L (135-145); TOTAL CARBON DIOXIDE 27.5 MMOL/L (24-32); TOTAL PROTEIN 6.6 G/DL (6.4-8.2); eCRCL 51 ML/MIN; eGFR 40 ML/MIN
[2023-03-29 13:14] LABS: PRO BRAIN NATRIURETIC PEPTIDE 266 PG/ML (0-125)
[2023-03-29 18:06] LABS: APTT 30 SECONDS (22-32); PROTHROMBIN TIME 10.8 SECONDS (9.0-12.0)
[2023-03-29] MEDS ORDERED: LISI20TA28 PO (18:16)
[2023-03-29] MEDS ORDERED: LACT10SO3 PO (18:16)
[2023-03-29] MEDS ORDERED: GABA800T11 PO (18:16)
[2023-03-29] MEDS ORDERED: GLUC1SYR (18:16)
[2023-03-29] MEDS ORDERED: MORP30TA PO (18:16)
[2023-03-29] MEDS ORDERED: LIDO700A32 TOP (18:16)
[2023-03-29] MEDS ORDERED: CYCL-1 PO (18:16)
[2023-03-29] MEDS ORDERED: PROP10TA10 PO (18:16)
[2023-03-29] MEDS ORDERED: GABA-535 PO (18:16)
[2023-03-29] MEDS ORDERED: aminophylline 250mg/10ml inj. IV PRN (18:50)
[2023-03-29] MEDS ORDERED: potassium Cl 40MEQ/1/2NS 520ml 520 ML IV PRN (18:50)
[2023-03-29] MEDS ORDERED: nitroGLYCERIN 0.4mg SUBLingual tab SL PRN (18:50)
[2023-03-29] MEDS ORDERED: metoprolol tartrate 1mg/ml inj IV PRN (18:50)
[2023-03-29] MEDS ORDERED: magnesium 2GM in 50ml NS 50 ML IV PRN (18:50)
[2023-03-29] MEDS ORDERED: magnesium Cl slow-release 64mg tablet PO PRN (18:50)
[2023-03-29] MEDS ORDERED: regadenoson 0.4mg/5ml syringe IV PRN (18:50)
[2023-03-29] MEDS ORDERED: magnesium 4gm in 100ml NS 100 ML IV PRN (18:50)
[2023-03-29] MEDS ORDERED: magnesium hydroxide 30ml (MOM) UD suspension PO PRN (18:50)
[2023-03-29] MEDS ORDERED: potassium Cl 20 mEq SR tablet PO PRN ×2 (18:50)
[2023-03-29] MEDS ORDERED: mag hydrox/Alum hydrox/simeth 30ml oral suspension PO PRN (18:50)
[2023-03-29] MEDS ORDERED: acetaminophen 325mg tablet PO PRN (18:50)
[2023-03-29] MEDS ORDERED: ondansetron/PF 4mg/2ml inj IV PRN (18:50)
[2023-03-29] MEDS ORDERED: dextrose 50%-water 50ml dispensing syringe IV PRN ×2 (18:55)
[2023-03-29] MEDS ORDERED: DEXTROSE 15 GM of carb/4 tabs (each vial/BOTTLE has 4 tablets) PO PRN ×2 (18:55)
[2023-03-29] MEDS ORDERED: glucagon, human recombinant 1mg kit SUBCUT PRN (18:55)
[2023-03-29] MEDS ORDERED: insulin Lispro (HumaLOG) vial - multi-dose SQ SCH (18:55)
[2023-03-29 19:53] LABS: THYROID STIMULATING HORMONE 0.75 ulU/ml (0.34-4.50)
[2023-03-29 19:57] LABS: HEMOGLOBIN A1C > 12.0 % (4.5-6.2)
[2023-03-29] MEDS: K and/or MAG REPLACEMENT MC SCH (20:00)
[2023-03-29] MEDS ORDERED: gabapentin 400mg capsule PO SCH (20:00)
[2023-03-29] MEDS ORDERED: morphine IR (immed. release) 30mg tablet PO SCH (21:00)
[2023-03-29] MEDS ORDERED: insulin glargine (Lantus) pen - multi-dose SQ SCH (21:00)
[2023-03-29] MEDS ORDERED: [UNRECOGNIZED DRUG - OTHER] PO SCH (21:00)
[2023-03-29] MEDS ORDERED: atorvastatin 20mg tablet PO SCH (21:00)
[2023-03-29] MEDS: heparin, porcine 5000 units/ml vial SQ SCH (21:59)
[2023-03-29] MEDS: docusate sod 100mg capsule PO SCH (21:59)
[2023-03-29 22:00] VITALS: BP 144/83; PULSE 85; RESP 16; TEMP 97.6; O2SAT 97
[2023-03-29] MEDS: cloNIDine 0.1 mg tablet PO SCH (22:00)
[2023-03-29] MEDS: diltiazem SR 60mg capsule (twice daily) PO SCH (22:00)
[2023-03-29] MEDS: normal saline 1000ml 1,000 ML IV SCH (22:30)
[2023-03-30] VITALS (13 sets, daily range): BP systolic 103–135; BP diastolic 52–79; PULSE 63–89; RESP 14–18; TEMP 97.1–98; O2SAT 90–100
[2023-03-30] MEDS: lactulose 20gm/30ml cup PO SCH ×3 (00:17→16:00)
[2023-03-30] MEDS: normal saline 1000ml 1,000 ML IV SCH ×2 (06:34→14:50)
--- NOTE | 2023-03-30 06:52 | NUR ---
Patient in room PCU 3017. I have received report from Marlon ZEPEDA and had the opportunity to ask questions and assume patient care.
[2023-03-30 07:08] LABS: BASOPHILS % (AUTO) 0.5 % (0-1); EOSINOPHILS # (AUTO) 0.7 X10'3 (0-0.9); EOSINOPHILS % (AUTO) 9.1 % (0-6); HEMATOCRIT 38.5 % (35.0-45.0); HEMOGLOBIN 12.7 g/dl (12.0-16.0); LYMPHOCYTES # (AUTO) 2.7 X10'3 (1.1-4.8); LYMPHOCYTES % (AUTO) 33.1 % (21-51); MEAN CORPUSCULAR HEMOGLOBIN 29.9 PG (27.0-31.0); MEAN CORPUSCULAR VOLUME 90.6 FL (78-98); MONOCYTES # (AUTO) 0.7 X10'3 (0-0.9); MONOCYTES % (AUTO) 8.8 % (2-12); NEUTROPHILS # (AUTO) 3.9 X10'3 (1.8-7.7); NEUTROPHILS % (AUTO) 48.5 % (42-75); PLATELET COUNT 318 X10'3 (140-440); RED BLOOD COUNT 4.25 X10'6 (4.20-5.60); RED CELL DISTRIBUTION WIDTH 14.1 % (11.5-14.5); WHITE BLOOD COUNT 8.1 X10'3 (4.5-11.0)
[2023-03-30 07:11] LABS: ALANINE AMINOTRANSFERASE 20 U/L (12-78); ALBUMIN 2.8 G/DL (3.4-5.0); ALBUMIN/GLOBULIN RATIO 0.8 (1.1-1.5); ALKALINE PHOSPHATASE 50 IU/L (46-116); ANION GAP 4 (8-16); ASPARTATE AMINO TRANSFERASE 19 U/L (10-37); BILIRUBIN,TOTAL 0.1 MG/DL (0.1-1.0); BLOOD UREA NITROGEN 31 MG/DL (7-18); CALCIUM 9.3 MG/DL (8.5-10.1); CHLORIDE 110 MMOL/L (99-107); CHOL/HDL RATIO 2.6 (0.00-4.99); CHOLESTEROL 127 MG/DL (0-200); CREATININE 1.15 MG/DL (0.40-0.90); GLUCOSE 159 MG/DL (70-104); HDL CHOLESTEROL 48 MG/DL (35-60); LDL CHOLESTEROL 48 MG/DL (50-100); MAGNESIUM 2.1 MG/DL (1.5-2.4); SODIUM 142 MMOL/L (135-145); TOTAL CARBON DIOXIDE 27.7 MMOL/L (24-32); TOTAL PROTEIN 6.2 G/DL (6.4-8.2); TRIGLYCERIDES 198 MG/DL (20-135); eCRCL 60 ML/MIN; eGFR 48 ML/MIN
[2023-03-30] MEDS ORDERED: venlafaxine XR 75mg capsule (Q24H) PO SCH (07:30)
[2023-03-30] MEDS ORDERED: ezetimibe 10mg tablet PO SCH (08:00)
[2023-03-30] MEDS ORDERED: LIDOcaine 5% patch TP SCH (08:00)
[2023-03-30] MEDS: K and/or MAG REPLACEMENT MC SCH (08:00)
[2023-03-30] MEDS: heparin, porcine 5000 units/ml vial SQ SCH (08:00)
[2023-03-30] MEDS ORDERED: METHYLPHENIDATE HCL 40 MG PO SCH (08:00)
[2023-03-30] MEDS ORDERED: lamoTRIgine 100mg tablet PO SCH ×2 (08:00→21:00)
[2023-03-30] MEDS ORDERED: lisinopril 10 MG tablet PO SCH (08:00)
[2023-03-30] MEDS ORDERED: cyclobenzaprine 10mg tablet PO SCH ×2 (08:00→10:51)
[2023-03-30] MEDS ORDERED: aspirin 81mg, enteric-coated 1 TAB TABLET.DR PO SCH (08:00)
[2023-03-30] MEDS ORDERED: morphine sulfate IR 15MG tablet PO SCH (10:00)
[2023-03-30] MEDS: diltiazem SR 60mg capsule (twice daily) PO SCH (10:36)
[2023-03-30] MEDS: docusate sod 100mg capsule PO SCH (10:37)
[2023-03-30] MEDS: gabapentin 400mg capsule PO SCH ×2 (10:38→12:00)
[2023-03-30] MEDS: propranolol 10mg tablet PO SCH ×2 (10:38→12:00)
[2023-03-30] MEDS: cloNIDine 0.1 mg tablet PO SCH (10:39)
[2023-03-30] MEDS: fenofibrate 145mg tablet PO SCH ×2 (10:50→10:51)
--- NOTE | 2023-03-30 12:58 | NUR ---
Contacted Elvia with Dietary and she will come see the patient. Elvia aware patient being discharged today.
--- NOTE | 2023-03-30 14:51 | NUR ---
Dietary has seen patient and educated on diabetes.
--- NOTE | 2023-03-30 15:37 | NUR ---
DM consult: Per EMR pt with T2DM, poorly controlled with A1c >12.0%. Pt seen at bedside for written and verbal DM education. Pt states her last A1c was 14.5% about a month ago and she's confident that is has not improved since then as she has not done anything to better manage her DM in that time. Per pt she has not been taking her DM medications per rx for about three months d/t being lazy and not taking care of herself secondary to focusing on her mother who just recently . Pt states she has a DexCom and reports BG as high as 400s in the morning. Pt reports increasing PO intake of sweets and sugary beverages following the passing of her mother and influence of her brother. Pt reports h/o SI and lack of desire to take care of herself though willingness to take care of others. RD encouraged pt to make herself a priority to improve QOL. Pt states she has a therapist that she has not been able to see for about five months though reports having an appointment with them on Tuesday and states she has a psychiatrist that she sees as well. RD also encouraged pt to take her DM medications per rx so her physician will better know how to adjust her medications to assist with improving her A1c. Pt verbalized understanding. Pt states she drinks Ensure at home sometimes. ONS coupons for Ensure and Glucerna provided to pt with education on appropriateness of when to use each ONS. All of patient's questions were answered at this time. RD contact information provided and pt encouraged to reach out if needed. Information obtained from pt was d/w bedside RN. Will continue to follow. Addendum: 03/30/23 at [address] Amended: Links added.
[2023-03-30] MEDS ORDERED: lurasidone 60mg tablet PO SCH (17:00)
--- NOTE | 2023-03-30 17:30 | NUR ---
Patient discharge instructions are reviewed with patient and patient verbalized understanding. Patient IV dc'd cannula intact, and Tele monitor dc'd. Patient states she has all her belongings. Patient was taken via wheelchair to friends vehicle.
[2023-03-30] MEDS ORDERED: OLANZAPINE 5 MG TABLET PO SCH (21:00)
== END 2023-03-30 17:13 | disposition home or self-care (01) ==
LOC: ER 12:35 → INTOOBSV 18:49 → ED HOLD 18:49 → PCU 3S 21:00
PROVIDERS: ADMIT Family Medicine; ATTEND Family Medicine
DX: R07.89 Other chest pain (principal); I25.10 Atherosclerotic heart disease of native coronary artery without angina pectoris; I48.91 Unspecified atrial fibrillation; I12.9 Hypertensive chronic kidney disease with stage 1 through stage 4 chronic kidney disease, or unspecified chronic kidney disease; E11.22 Type 2 diabetes mellitus with diabetic chronic kidney disease; N18.9 Chronic kidney disease, unspecified; E78.00 Pure hypercholesterolemia, unspecified; F41.8 Other specified anxiety disorders; J44.9 Chronic obstructive pulmonary disease, unspecified; Z90.81 Acquired absence of spleen; Z79.899 Other long term (current) drug therapy
CPT/HCPCS: 36415; 71045; 78452; 80053; 80061; 82948; 83036; 83735; 83880; 84443; 84484; 85025; 85610; 85730; 87081; 93005; 93017; 96360; 96361; 96372; 99285; A9500; G0378; J1644; J1815; J2785; J7030

== ENCOUNTER 2023-05-23 16:13 | Emergency (ER) | payer MEDICARE, MEDICAID ==
[~2023-05-23] VITALS: Ht 172.7 cm; Wt 100.0 kg
[~2023-05-23 16:13] MED LIST changes: +CYCL-1 PO; +GABA-535 PO; +GABA800T11 PO; +GLUC1SYR; -IPRA3AMP9 IH; +LACT10SO3 PO; +LIDO700A32 TOP; +LISI20TA28 PO; +MORP30TA PO; -ONDA4TAB12 PO; -ORPH100T4 PO; -OXYC-145 PO; -OXYC-150 PO; +PROP10TA10 PO; -UMEC1DIS PO; -ZOLP12.543 PO
[2023-05-23 16:21] VITALS: BP 145/82; PULSE 84; RESP 18; TEMP 98; O2SAT 98
[2023-05-23] MEDS ORDERED: morphine 2 MG/ML inj. syringe IM ONE (19:10)
[2023-05-23] MEDS ORDERED: ondansetron 4mg rapidly disintigrating tab PO ONE (19:10)
[2023-05-23] MEDS ORDERED: morphine 10mg/ml inj. IM ONE (19:15)
== END 2023-05-23 19:54 | disposition home or self-care (01) ==
LOC: ER 16:15
DX: M13.862 Other specified arthritis, left knee (principal); M25.462 Effusion, left knee; E78.00 Pure hypercholesterolemia, unspecified; J44.9 Chronic obstructive pulmonary disease, unspecified; G89.29 Other chronic pain; I10 Essential (primary) hypertension; F31.9 Bipolar disorder, unspecified
CPT/HCPCS: 73564; 96372; 99283; J2270; A6449

== ENCOUNTER 2023-06-02 18:17 | Emergency (ER) | payer MEDICARE, MEDICAID ==
[~2023-06-02] VITALS: Ht 182.9 cm; Wt 119.5 kg
[2023-06-02 18:22] VITALS: TEMP 97.6
[2023-06-02] MEDS ORDERED: NAPR-56 PO (19:26)
[2023-06-02] MEDS ORDERED: ketorolac trometh inj. 60 MG/2 ML VIAL IM ONE (19:30)
[2023-06-02] MEDS ORDERED: ketorolac trometh. 30mg/ml inj. IM ONE (19:30)
[2023-06-02 19:54] VITALS: BP 110/63; PULSE 55; RESP 17; O2SAT 94
== END 2023-06-02 19:55 | disposition home or self-care (01) ==
LOC: ER 18:18
DX: S39.012A Strain of muscle, fascia and tendon of lower back, initial encounter (principal); E78.00 Pure hypercholesterolemia, unspecified; I11.0 Hypertensive heart disease with heart failure; J44.9 Chronic obstructive pulmonary disease, unspecified; E11.9 Type 2 diabetes mellitus without complications; G89.29 Other chronic pain; F31.9 Bipolar disorder, unspecified; Z88.1 Allergy status to other antibiotic agents; Z79.899 Other long term (current) drug therapy; Z88.8 Allergy status to other drugs, medicaments and biological substances
CPT/HCPCS: 96372; 99283; J1885

== ENCOUNTER 2023-08-30 09:46 | Inpatient (IN) | payer MEDICARE, MEDICAID ==
[~2023-08-30] VITALS: Ht 182.9 cm; Wt 113.5 kg
[2023-08-30] MEDS ORDERED: ringers solution, lacted 1,000 ML IV ONE ×2 (10:20)
[2023-08-30 10:47] LABS: PROTHROMBIN TIME 10.4 SECONDS (9.0-12.0)
[2023-08-30 10:54] LABS: ALANINE AMINOTRANSFERASE 23 U/L (12-78); ALBUMIN 2.7 G/DL (3.4-5.0); ALBUMIN/GLOBULIN RATIO 0.7 (1.1-1.5); ALKALINE PHOSPHATASE 76 IU/L (46-116); ANION GAP 6 (8-16); ASPARTATE AMINO TRANSFERASE 26 U/L (10-37); BILIRUBIN,TOTAL 0.2 MG/DL (0.1-1.0); BLOOD UREA NITROGEN 55 MG/DL (7-18); BUN/CREATININE RATIO 17.9 (10.0-20.0); CALCIUM 7.9 MG/DL (8.5-10.1); CHLORIDE 99 MMOL/L (99-107); CREATININE 3.07 MG/DL (0.40-0.90); POTASSIUM 5.4 MMOL/L (3.5-5.1); SODIUM 133 MMOL/L (135-145); TOTAL CARBON DIOXIDE 27.6 MMOL/L (24-32); TOTAL PROTEIN 6.4 G/DL (6.4-8.2); eCRCL 22 ML/MIN; eGFR 15 ML/MIN
[2023-08-30 11:08] LABS: BASOPHILS # (AUTO) 0.1 X10'3 (0-0.2); BASOPHILS % (AUTO) 0.7 % (0-1); EOSINOPHILS # (AUTO) 0.6 X10'3 (0-0.9); EOSINOPHILS % (AUTO) 6.9 % (0-6); HEMATOCRIT 39.1 % (35.0-45.0); HEMOGLOBIN 12.7 g/dl (12.0-16.0); LYMPHOCYTES # (AUTO) 1.5 X10'3 (1.1-4.8); LYMPHOCYTES % (AUTO) 17.2 % (21-51); MEAN CORPUSCULAR HEMOGLOBIN 29.4 PG (27.0-31.0); MEAN CORPUSCULAR HGB CONC 32.4 g/dL (33.0-36.5); MEAN CORPUSCULAR VOLUME 90.7 FL (78-98); MEAN PLATELET VOLUME 10.2 FL (7.4-10.4); MONOCYTES # (AUTO) 0.8 X10'3 (0-0.9); MONOCYTES % (AUTO) 8.4 % (2-12); NEUTROPHILS % (AUTO) 66.8 % (42-75); PLATELET COUNT 259 X10'3 (140-440); RED BLOOD COUNT 4.31 X10'6 (4.20-5.60); RED CELL DISTRIBUTION WIDTH 13.6 % (11.5-14.5)
[2023-08-30 11:20] LABS: GLUCOSE 435 MG/DL (70-104)
[2023-08-30 11:45] LABS: ACETONE SMALL (NEGATIVE)
[2023-08-30] MEDS ORDERED: insulin regular, human 10 units/0.1 ml syringe IV ONE (12:00)
[2023-08-30 13:35] LABS: BILIRUBIN,URINE NEGATIVE (Neg); CLARITY,URINE SLIGHTLY CLOUDY (Clear); COLOR,URINE YELLOW (Yellow); GLUCOSE, URINE >=1000 mg/dl (Neg); KETONES,URINE NEGATIVE (Neg); LEUKOCYTE ESTERASE ,URINE SMALL (Neg); NITRITES, URINE NEGATIVE (Neg); OCCULT BLOOD,URINE TRACE-INTACT (Neg); PH,URINE 5.5 (4.8-8.0); PROTEIN,URINE NEGATIVE (Neg); UROBILINOGEN,URINE 0.2 E.U/dL (0.2-1.0)
[2023-08-30] MEDS ORDERED: mag hydrox/Alum hydrox/simeth 30ml oral suspension PO PRN (13:35)
[2023-08-30] MEDS ORDERED: potassium Cl 20 mEq SR tablet PO PRN ×2 (13:35)
[2023-08-30] MEDS ORDERED: HYDROcodone/acetaminophen 10/325mg tab PO PRN (13:35)
[2023-08-30] MEDS ORDERED: ondansetron/PF 4mg/2ml inj IV PRN (13:35)
[2023-08-30] MEDS ORDERED: magnesium hydroxide 30ml (MOM) UD suspension PO PRN (13:35)
[2023-08-30] MEDS ORDERED: magnesium 2GM in 50ml NS 50 ML IV PRN (13:35)
[2023-08-30] MEDS ORDERED: acetaminophen 325mg tablet PO PRN (13:35)
[2023-08-30] MEDS ORDERED: morphine 2 MG/ML inj. syringe IV PRN ×2 (13:35)
[2023-08-30] MEDS ORDERED: magnesium Cl slow-release 64mg tablet PO PRN (13:35)
[2023-08-30] MEDS ORDERED: potassium Cl 40MEQ/1/2NS 520ml 520 ML IV PRN (13:35)
[2023-08-30] MEDS ORDERED: magnesium 4gm in 100ml NS 100 ML IV PRN (13:35)
[2023-08-30] MEDS ORDERED: HYDROcodone/acetaminophen 5mg/325mg tablet PO PRN (13:35)
[2023-08-30] MEDS ORDERED: MESSAGE TO PHARMACY PO ONE (13:40)
[2023-08-30] MEDS ORDERED: glucagon, human recombinant 1mg kit SUBCUT PRN (13:40)
[2023-08-30] MEDS ORDERED: dextrose 50%-water 50ml dispensing syringe IV PRN ×2 (13:40)
[2023-08-30] MEDS ORDERED: DEXTROSE 15 GM of carb/4 tabs (each vial/BOTTLE has 4 tablets) PO PRN ×2 (13:40)
[2023-08-30 13:43] LABS: UA COLLECTION TYPE STRAIGHT CATH
[2023-08-30 13:48] LABS: SQUAMOUS EPITHELIAL CELL,UR MANY /LPF (FEW); WBC,URINE 50-100 /HPF (0-4)
[2023-08-30 13:49] LABS: BACTERIA,URINE 1+ /HPF (Neg)
[2023-08-30 13:58] LABS: URINE AMPHETAMINE SCREEN NEGATIVE (Neg); URINE BARBITUATE SCREEN NEGATIVE (Neg); URINE BENZODIAZEPINES SCREEN NEGATIVE (Neg); URINE CANNABINOID SCREEN NEGATIVE (Neg); URINE COCAINE SCREEN NEGATIVE (Neg); URINE METHADONE SCREEN NEGATIVE (Neg); URINE OPIATE SCREEN POSITIVE (Neg); URINE PHENCYCLIDINE SCREEN NEGATIVE (Neg)
[2023-08-30 14:11] LABS: PRO BRAIN NATRIURETIC PEPTIDE 230 PG/ML (0-125)
[2023-08-30 15:30] VITALS: BP 160/75; PULSE 96; RESP 13; TEMP 97.7; O2SAT 91
[2023-08-30 15:54] VITALS: RESP 16; O2SAT 92
[2023-08-30 18:00] VITALS: BP 165/74; PULSE 100; RESP 12; TEMP 97.6; O2SAT 93
[2023-08-30] MEDS ORDERED: LAMO100T PO (19:09)
[2023-08-30] MEDS ORDERED: LAMO25TA5 PO (19:09)
[2023-08-30] MEDS: insulin Lispro (HumaLOG) vial - multi-dose SQ SCH (19:21)
[2023-08-30 20:00] VITALS: RESP 16; O2SAT 94
[2023-08-30] MEDS: K and/or MAG REPLACEMENT MC SCH (20:00)
[2023-08-30] MEDS: cyclobenzaprine 10mg tablet PO SCH (20:46)
[2023-08-30] MEDS: OLANZAPINE 5 MG TABLET PO SCH (20:46)
[2023-08-30] MEDS: docusate sod 100mg capsule PO SCH (20:47)
[2023-08-30] MEDS: metFORMIN 500mg tablet PO SCH (20:47)
[2023-08-30] MEDS: hydrOXYzine 25 MG tablet PO SCH (20:48)
[2023-08-30] MEDS: lamoTRIgine 100mg tablet PO SCH (20:48)
[2023-08-30] MEDS: atorvastatin 20mg tablet PO SCH (20:49)
[2023-08-30] MEDS: cloNIDine 0.1 mg tablet PO SCH (20:49)
[2023-08-30] MEDS: gabapentin 400mg capsule PO SCH (20:50)
[2023-08-30] MEDS: propranolol 10mg tablet PO SCH (20:50)
[2023-08-30] MEDS: diltiazem SR 60mg capsule (twice daily) PO SCH (20:51)
[2023-08-30] MEDS ORDERED: morphine IR (immed. release) 30mg tablet PO SCH (21:00)
[2023-08-30] MEDS: normal saline 1000ml 1,000 ML IV SCH (21:14)
[2023-08-30] MEDS: insulin glargine (Lantus) pen - multi-dose SQ SCH (21:46)
[2023-08-30 22:00] VITALS: BP 151/63; PULSE 99; RESP 16; TEMP 98.6; O2SAT 94
[2023-08-31] VITALS (7 sets, daily range): BP systolic 100–126; BP diastolic 6–67; PULSE 62–86; RESP 13–17; TEMP 97.3–99; O2SAT 90–94
[2023-08-31] MEDS: EMPAGLIFLOZIN PO SCH (08:00)
[2023-08-31] MEDS: metFORMIN 500mg tablet PO SCH (08:00)
[2023-08-31] MEDS: LINAGLIPTIN PO SCH (08:00)
[2023-08-31] MEDS: METHYLPHENIDATE HCL 40 MG PO SCH (08:00)
[2023-08-31] MEDS: K and/or MAG REPLACEMENT MC SCH ×2 (08:00→20:00)
[2023-08-31 08:07] LABS: APTT 26 SECONDS (22-32); PROTHROMBIN TIME 10.6 SECONDS (9.0-12.0)
[2023-08-31 08:09] LABS: BASOPHILS # (AUTO) 0.1 X10'3 (0-0.2); BASOPHILS % (AUTO) 0.6 % (0-1); EOSINOPHILS # (AUTO) 0.7 X10'3 (0-0.9); EOSINOPHILS % (AUTO) 7.8 % (0-6); HEMATOCRIT 37.2 % (35.0-45.0); HEMOGLOBIN 12.2 g/dl (12.0-16.0); LYMPHOCYTES # (AUTO) 2.4 X10'3 (1.1-4.8); LYMPHOCYTES % (AUTO) 26.6 % (21-51); MEAN CORPUSCULAR HEMOGLOBIN 29.3 PG (27.0-31.0); MEAN CORPUSCULAR HGB CONC 32.8 g/dL (33.0-36.5); MEAN CORPUSCULAR VOLUME 89.4 FL (78-98); MEAN PLATELET VOLUME 10.1 FL (7.4-10.4); MONOCYTES # (AUTO) 0.8 X10'3 (0-0.9); MONOCYTES % (AUTO) 9.2 % (2-12); NEUTROPHILS % (AUTO) 55.8 % (42-75); PLATELET COUNT 241 X10'3 (140-440); RED BLOOD COUNT 4.16 X10'6 (4.20-5.60); RED CELL DISTRIBUTION WIDTH 13.6 % (11.5-14.5)
[2023-08-31 08:22] LABS: ALANINE AMINOTRANSFERASE 19 U/L (12-78); ALBUMIN 2.4 G/DL (3.4-5.0); ALBUMIN/GLOBULIN RATIO 0.6 (1.1-1.5); ALKALINE PHOSPHATASE 54 IU/L (46-116); ANION GAP 7 (8-16); ASPARTATE AMINO TRANSFERASE 26 U/L (10-37); BILIRUBIN,TOTAL 0.3 MG/DL (0.1-1.0); BLOOD UREA NITROGEN 38 MG/DL (7-18); BUN/CREATININE RATIO 23.5 (10.0-20.0); CHLORIDE 105 MMOL/L (99-107); CREATININE 1.62 MG/DL (0.40-0.90); GLUCOSE 182 MG/DL (70-104); MAGNESIUM 2.3 MG/DL (1.5-2.4); PHOSPHORUS 2.3 MG/DL (2.3-4.5); POTASSIUM 4.6 MMOL/L (3.5-5.1); SODIUM 140 MMOL/L (135-145); TOTAL CARBON DIOXIDE 27.9 MMOL/L (24-32); TOTAL PROTEIN 6.3 G/DL (6.4-8.2); eCRCL 42 ML/MIN; eGFR 32 ML/MIN
[2023-08-31] MEDS: fenofibrate 145mg tablet PO SCH (08:26)
[2023-08-31] MEDS: cyclobenzaprine 10mg tablet PO SCH ×3 (08:26→22:11)
[2023-08-31] MEDS: propranolol 10mg tablet PO SCH ×3 (08:27→21:55)
[2023-08-31] MEDS: gabapentin 400mg capsule PO SCH ×3 (08:27→21:54)
[2023-08-31] MEDS: aspirin 81mg, enteric-coated 1 TAB TABLET.DR PO SCH (08:28)
[2023-08-31] MEDS: ezetimibe 10mg tablet PO SCH (08:28)
[2023-08-31] MEDS: lisinopril 20mg tablet PO SCH (08:31)
[2023-08-31] MEDS: docusate sod 100mg capsule PO SCH ×2 (08:31→19:38)
[2023-08-31] MEDS: cloNIDine 0.1 mg tablet PO SCH ×2 (08:34→19:41)
[2023-08-31 08:49] LABS: HEMOGLOBIN A1C > 12.0 % (4.5-6.2)
[2023-08-31] MEDS: lamoTRIgine 100mg tablet PO SCH ×2 (08:50→21:54)
[2023-08-31] MEDS: insulin Lispro (HumaLOG) vial - multi-dose SQ SCH ×3 (08:59→19:30)
[2023-08-31] MEDS ORDERED: morphine sulfate IR 15MG tablet PO SCH (09:05)
[2023-08-31 09:29] LABS: CHOL/HDL RATIO 2.2 (0.00-4.99); CHOLESTEROL 106 MG/DL (0-200); HDL CHOLESTEROL 48 MG/DL (35-60); LDL CHOLESTEROL 38 MG/DL (50-100); TRIGLYCERIDES 111 MG/DL (20-135)
[2023-08-31] MEDS: CefTRIAXone/D5W-Rocephin 1gm 50 ML IV SCH (09:56)
[2023-08-31] MEDS: venlafaxine XR 75mg capsule (Q24H) PO SCH (09:57)
[2023-08-31] MEDS: diltiazem SR 60mg capsule (twice daily) PO SCH ×2 (09:58→19:39)
[2023-08-31] MEDS: morphine sulfate IR 15MG tablet PO SCH ×3 (10:05→21:55)
[2023-08-31] MEDS ORDERED: gabapentin 300mg capsule PO SCH (14:24)
[2023-08-31] MEDS: normal saline 1000ml 1,000 ML IV SCH (15:39)
[2023-08-31] MEDS ORDERED: lurasidone 60mg tablet PO SCH (17:00)
[2023-08-31] MEDS: atorvastatin 20mg tablet PO SCH (21:50)
[2023-08-31] MEDS: hydrOXYzine 25 MG tablet PO SCH (21:54)
[2023-08-31] MEDS: OLANZAPINE 5 MG TABLET PO SCH (22:01)
[2023-08-31] MEDS: insulin glargine (Lantus) pen - multi-dose SQ SCH (22:14)
[2023-09-01 02:00] VITALS: BP 102/49; PULSE 62; RESP 11; TEMP 98.8; O2SAT 96
[2023-09-01] MEDS: normal saline 1000ml 1,000 ML IV SCH (06:08)
[2023-09-01 06:41] LABS: BASOPHILS # (AUTO) 0.1 X10'3 (0-0.2); BASOPHILS % (AUTO) 0.6 % (0-1); EOSINOPHILS # (AUTO) 0.8 X10'3 (0-0.9); EOSINOPHILS % (AUTO) 8.3 % (0-6); HEMATOCRIT 37.3 % (35.0-45.0); HEMOGLOBIN 12.2 g/dl (12.0-16.0); LYMPHOCYTES # (AUTO) 2.6 X10'3 (1.1-4.8); LYMPHOCYTES % (AUTO) 26.9 % (21-51); MEAN CORPUSCULAR HEMOGLOBIN 29.5 PG (27.0-31.0); MEAN CORPUSCULAR HGB CONC 32.7 g/dL (33.0-36.5); MEAN CORPUSCULAR VOLUME 90.2 FL (78-98); MONOCYTES % (AUTO) 10.4 % (2-12); NEUTROPHILS # (AUTO) 5.2 X10'3 (1.8-7.7); NEUTROPHILS % (AUTO) 53.8 % (42-75); PLATELET COUNT 230 X10'3 (140-440); RED BLOOD COUNT 4.14 X10'6 (4.20-5.60); RED CELL DISTRIBUTION WIDTH 14.1 % (11.5-14.5); WHITE BLOOD COUNT 9.6 X10'3 (4.5-11.0)
[2023-09-01 06:57] LABS: APTT 25 SECONDS (22-32); PROTHROMBIN TIME 10.4 SECONDS (9.0-12.0)
[2023-09-01 07:00] VITALS: BP 114/62; PULSE 75; RESP 18; TEMP 98.2; O2SAT 93
[2023-09-01 07:01] LABS: ALANINE AMINOTRANSFERASE 18 U/L (12-78); ALBUMIN 2.5 G/DL (3.4-5.0); ALBUMIN/GLOBULIN RATIO 0.7 (1.1-1.5); ALKALINE PHOSPHATASE 46 IU/L (46-116); ANION GAP 5 (8-16); ASPARTATE AMINO TRANSFERASE 27 U/L (10-37); BILIRUBIN,TOTAL 0.2 MG/DL (0.1-1.0); BLOOD UREA NITROGEN 35 MG/DL (7-18); BUN/CREATININE RATIO 23.3 (10.0-20.0); CHLORIDE 108 MMOL/L (99-107); GLUCOSE 126 MG/DL (70-104); MAGNESIUM 2.2 MG/DL (1.5-2.4); PHOSPHORUS 2.2 MG/DL (2.3-4.5); POTASSIUM 4.7 MMOL/L (3.5-5.1); SODIUM 142 MMOL/L (135-145); TOTAL CARBON DIOXIDE 28.6 MMOL/L (24-32); TOTAL PROTEIN 6.2 G/DL (6.4-8.2); eCRCL 45 ML/MIN; eGFR 35 ML/MIN
[2023-09-01] MEDS: CefTRIAXone/D5W-Rocephin 1gm 50 ML IV SCH (07:48)
[2023-09-01] MEDS: lisinopril 20mg tablet PO SCH (07:48)
[2023-09-01] MEDS: cloNIDine 0.1 mg tablet PO SCH (07:49)
[2023-09-01] MEDS: propranolol 10mg tablet PO SCH (07:49)
[2023-09-01] MEDS: ezetimibe 10mg tablet PO SCH (07:49)
[2023-09-01] MEDS: morphine sulfate IR 15MG tablet PO SCH (07:50)
[2023-09-01] MEDS: docusate sod 100mg capsule PO SCH (07:50)
[2023-09-01] MEDS: fenofibrate 145mg tablet PO SCH (07:50)
[2023-09-01] MEDS: aspirin 81mg, enteric-coated 1 TAB TABLET.DR PO SCH (07:50)
[2023-09-01] MEDS: cyclobenzaprine 10mg tablet PO SCH (07:50)
[2023-09-01] MEDS: diltiazem SR 60mg capsule (twice daily) PO SCH (07:52)
[2023-09-01] MEDS: venlafaxine XR 75mg capsule (Q24H) PO SCH (07:52)
[2023-09-01] MEDS: lamoTRIgine 100mg tablet PO SCH (07:58)
[2023-09-01] MEDS: LINAGLIPTIN PO SCH (08:00)
[2023-09-01] MEDS: EMPAGLIFLOZIN PO SCH (08:00)
[2023-09-01] MEDS: K and/or MAG REPLACEMENT MC SCH (08:00)
[2023-09-01] MEDS: METHYLPHENIDATE HCL 40 MG PO SCH (08:00)
[2023-09-01] MEDS: insulin Lispro (HumaLOG) vial - multi-dose SQ SCH ×2 (09:25→13:13)
[2023-09-01] MEDS ORDERED: SULF1TAB49 PO (11:10)
[2023-09-01] MEDS ORDERED: lisinopril 10 MG tablet PO SCH (11:39)
[2023-09-01 11:51] VITALS: BP 116/60; PULSE 89; RESP 12; TEMP 98.5; O2SAT 95
== END 2023-09-01 13:10 | disposition home or self-care (01) | DRG 637 ==
LOC: ER 09:47 → ED HOLD 13:40 → PCU 3S 15:15
PROVIDERS: ADMIT Internal Medicine; ATTEND Internal Medicine
DX: E11.65 Type 2 diabetes mellitus with hyperglycemia (principal); N17.0 Acute kidney failure with tubular necrosis; N39.0 Urinary tract infection, site not specified; E87.1 Hypo-osmolality and hyponatremia; E86.0 Dehydration; N18.9 Chronic kidney disease, unspecified; E78.00 Pure hypercholesterolemia, unspecified; E11.22 Type 2 diabetes mellitus with diabetic chronic kidney disease; I25.10 Atherosclerotic heart disease of native coronary artery without angina pectoris; I48.91 Unspecified atrial fibrillation; I12.9 Hypertensive chronic kidney disease with stage 1 through stage 4 chronic kidney disease, or unspecified chronic kidney disease; G89.29 Other chronic pain; E87.6 Hypokalemia; F31.9 Bipolar disorder, unspecified; E66.9 Obesity, unspecified; Z88.1 Allergy status to other antibiotic agents; Z91.018 Allergy to other foods; Z91.013 Allergy to seafood; Z79.4 Long term (current) use of insulin; Z79.899 Other long term (current) drug therapy; Z79.84 Long term (current) use of oral hypoglycemic drugs; Z86.73 Personal history of transient ischemic attack (TIA), and cerebral infarction without residual deficits; Z90.81 Acquired absence of spleen; Z68.33 Body mass index [BMI] 33.0-33.9, adult
CPT/HCPCS: 36415; 70450; 71045; 72125; 73501; 73560; 80053; 80061; 80305; 81001; 82009; 82948; 83036; 83605; 83735; 83880; 84100; 84484; 85025; 85610; 85730; 87040; 87081; 93005; 97116; 97161; 97530; 99285; G0378; J0696; J1815; J7030; J7120; Q0177

== ENCOUNTER 2023-09-09 18:07 | Emergency (ER) | payer MEDICARE, MEDICAID ==
[~2023-09-09] VITALS: Ht 182.9 cm; Wt 114.1 kg
[~2023-09-09 18:07] MED LIST changes: -CLON0.1T2 PO; +LAMO100T PO; -LAMO100T65 PO; +LAMO25TA5 PO; -LIDO700A32 TOP; -METF-436 PO
[2023-09-09] MEDS ORDERED: meclizine 12.5mg tablet PO ONE (18:20)
[2023-09-09 19:22] LABS: BASOPHILS # (AUTO) 0.1 X10'3 (0-0.2); BASOPHILS % (AUTO) 0.6 % (0-1); EOSINOPHILS # (AUTO) 0.6 X10'3 (0-0.9); EOSINOPHILS % (AUTO) 6.3 % (0-6); HEMOGLOBIN 13.8 g/dl (12.0-16.0); LYMPHOCYTES # (AUTO) 1.8 X10'3 (1.1-4.8); LYMPHOCYTES % (AUTO) 18.9 % (21-51); MEAN CORPUSCULAR HEMOGLOBIN 29.8 PG (27.0-31.0); MEAN CORPUSCULAR HGB CONC 32.9 g/dL (33.0-36.5); MEAN CORPUSCULAR VOLUME 90.5 FL (78-98); MEAN PLATELET VOLUME 8.2 FL (7.4-10.4); MONOCYTES # (AUTO) 0.9 X10'3 (0-0.9); MONOCYTES % (AUTO) 9.8 % (2-12); NEUTROPHILS # (AUTO) 6.1 X10'3 (1.8-7.7); NEUTROPHILS % (AUTO) 64.4 % (42-75); PLATELET COUNT 434 X10'3 (140-440); RED BLOOD COUNT 4.64 X10'6 (4.20-5.60); WHITE BLOOD COUNT 9.5 X10'3 (4.5-11.0)
[2023-09-09 19:33] LABS: APTT 29 SECONDS (22-32); PROTHROMBIN TIME 10.3 SECONDS (9.0-12.0)
[2023-09-09 19:42] LABS: ALBUMIN 3.4 G/DL (3.4-5.0); ANION GAP 7 (8-16); BLOOD UREA NITROGEN 36 MG/DL (7-18); BUN/CREATININE RATIO 22.9 (10.0-20.0); CALCIUM 9.7 MG/DL (8.5-10.1); CHLORIDE 105 MMOL/L (99-107); CREATININE 1.57 MG/DL (0.40-0.90); GLUCOSE 129 MG/DL (70-104); MAGNESIUM 2.5 MG/DL (1.5-2.4); PRO BRAIN NATRIURETIC PEPTIDE 179 PG/ML (0-125); SODIUM 140 MMOL/L (135-145); TOTAL CARBON DIOXIDE 27.8 MMOL/L (24-32); eCRCL 43 ML/MIN; eGFR 33 ML/MIN
[2023-09-09] MEDS ORDERED: normal saline 1000ml 1,000 ML IV ONE ×2 (21:10)
[2023-09-09] MEDS ORDERED: sodium polystyrene sulfonate 15gm/60ml oral suspension PO ONE (21:10)
[2023-09-10 01:39] LABS: BILIRUBIN,URINE NEGATIVE (Neg); CLARITY,URINE CLEAR (Clear); COLOR,URINE STRAW (Yellow); GLUCOSE, URINE >=1000 mg/dl (Neg); KETONES,URINE NEGATIVE (Neg); LEUKOCYTE ESTERASE ,URINE NEGATIVE (Neg); NITRITES, URINE NEGATIVE (Neg); OCCULT BLOOD,URINE NEGATIVE (Neg); PROTEIN,URINE 30 mg/dl (Neg); UROBILINOGEN,URINE 0.2 E.U/dL (0.2-1.0)
[2023-09-10 01:45] LABS: SQUAMOUS EPITHELIAL CELL,UR FEW /LPF (FEW); UA COLLECTION TYPE CLN CATCH MIDSTREAM
[2023-09-10 01:46] LABS: BACTERIA,URINE 1+ /HPF (Neg); RBC,URINE NONE SEEN /HPF (0-2); WBC,URINE NONE SEEN /HPF (0-4)
[2023-09-10 01:52] LABS: ALBUMIN 2.9 G/DL (3.4-5.0); ANION GAP 5 (8-16); BLOOD UREA NITROGEN 32 MG/DL (7-18); BUN/CREATININE RATIO 23.5 (10.0-20.0); CALCIUM 8.4 MG/DL (8.5-10.1); CHLORIDE 107 MMOL/L (99-107); CREATININE 1.36 MG/DL (0.40-0.90); GLUCOSE 127 MG/DL (70-104); SODIUM 141 MMOL/L (135-145); TOTAL CARBON DIOXIDE 29.4 MMOL/L (24-32); eCRCL 50 ML/MIN; eGFR 40 ML/MIN
[2023-09-10 02:33] VITALS: BP 144/73; PULSE 79; RESP 17; TEMP 98; O2SAT 93
== END 2023-09-10 02:34 | disposition home or self-care (01) ==
LOC: ER 18:08
DX: R42 Dizziness and giddiness (principal); R11.10 Vomiting, unspecified; J44.9 Chronic obstructive pulmonary disease, unspecified; E11.9 Type 2 diabetes mellitus without complications
CPT/HCPCS: 36415; 70450; 71045; 80048; 81001; 83735; 83880; 84484; 85025; 85610; 85730; 93005; 96360; 96361; 99285; J7030; J8597

== ENCOUNTER 2023-09-18 10:56 | Emergency (ER) | payer MEDICARE, MEDICAID ==
[~2023-09-18] VITALS: Ht 182.9 cm; Wt 116.8 kg
[2023-09-18 11:02] VITALS: BP 128/61; PULSE 57; RESP 18; O2SAT 97
[2023-09-18] MEDS ORDERED: SULF1TAB49 PO (11:56)
[2023-09-18 12:50] VITALS: TEMP 97
== END 2023-09-18 12:55 | disposition home or self-care (01) ==
LOC: ER 10:57
DX: M79.672 Pain in left foot (principal); Z88.1 Allergy status to other antibiotic agents; Z91.018 Allergy to other foods; Z91.013 Allergy to seafood; Z79.82 Long term (current) use of aspirin; Z79.899 Other long term (current) drug therapy; Z79.84 Long term (current) use of oral hypoglycemic drugs
CPT/HCPCS: 73630; 99283

== ENCOUNTER 2023-09-27 14:08 | Emergency (ER) | payer MEDICARE, MEDICAID ==
[~2023-09-27] VITALS: Ht 172.7 cm; Wt 127.3 kg
[~2023-09-27 14:08] MED LIST changes: +SULF1TAB49 PO
[2023-09-27 15:05] VITALS: BP 138/73; PULSE 78; RESP 18; O2SAT 98
[2023-09-27 15:37] VITALS: TEMP 97
== END 2023-09-27 15:44 | disposition home or self-care (01) ==
LOC: ER 14:10
DX: E13.649 Other specified diabetes mellitus with hypoglycemia without coma (principal); Z79.85 Long-term (current) use of injectable non-insulin antidiabetic drugs; I11.0 Hypertensive heart disease with heart failure; E78.00 Pure hypercholesterolemia, unspecified; J44.9 Chronic obstructive pulmonary disease, unspecified; F31.9 Bipolar disorder, unspecified; Z88.1 Allergy status to other antibiotic agents; Z79.899 Other long term (current) drug therapy; Z91.018 Allergy to other foods
CPT/HCPCS: 82948; 99283

== ENCOUNTER 2024-01-20 22:04 | Emergency (ER) | payer MEDICARE, MEDICAID ==
[~2024-01-20] VITALS: Ht 182.9 cm; Wt 126.8 kg
[~2024-01-20 22:04] MED LIST changes: +AMOX-101 PO; -SULF1TAB49 PO
[2024-01-21 06:19] VITALS: BP 178/94; PULSE 81; RESP 16; TEMP 98; O2SAT 93
[2024-01-22] MEDS ORDERED: INSU200I4 (17:44)
[2024-01-22] MEDS ORDERED: EMPA1TAB PO (17:44)
[2024-01-22] MEDS ORDERED: LAMO100T2 PO (17:44)
[2024-01-22] MEDS ORDERED: GABA-535 PO (17:44)
[2024-01-22] MEDS ORDERED: AMLO-140 PO (17:51)
[2024-01-22] MEDS ORDERED: LORA-268 PO (17:56)
[2024-01-22] MEDS ORDERED: LORA-269 PO (17:56)
[2024-01-22] MEDS ORDERED: OXYC-150 PO (17:56)
[2024-01-22] MEDS ORDERED: METF-438 PO (18:04)
[2024-01-22] MEDS ORDERED: AMLO5TAB PO (19:29)
== END 2024-01-21 06:10 | disposition home or self-care (01) ==
LOC: ER 22:05
DX: T39.91XA Poisoning by unspecified nonopioid analgesic, antipyretic and antirheumatic, accidental (unintentional), initial encounter (principal); E78.00 Pure hypercholesterolemia, unspecified; J44.9 Chronic obstructive pulmonary disease, unspecified; F12.90 Cannabis use, unspecified, uncomplicated; F15.90 Other stimulant use, unspecified, uncomplicated; I12.9 Hypertensive chronic kidney disease with stage 1 through stage 4 chronic kidney disease, or unspecified chronic kidney disease; E11.22 Type 2 diabetes mellitus with diabetic chronic kidney disease; N18.9 Chronic kidney disease, unspecified; F31.9 Bipolar disorder, unspecified; Z88.1 Allergy status to other antibiotic agents; Z91.018 Allergy to other foods; Z79.2 Long term (current) use of antibiotics; Z79.82 Long term (current) use of aspirin; Z79.899 Other long term (current) drug therapy; Y92.89 Other specified places as the place of occurrence of the external cause; Z79.4 Long term (current) use of insulin; Z85.9 Personal history of malignant neoplasm, unspecified
CPT/HCPCS: 99285

== ENCOUNTER 2024-01-22 13:20 | Emergency (ER) | payer MEDICARE, MEDICAID ==
[~2024-01-22] VITALS: Ht 182.9 cm; Wt 119.2 kg
[2024-01-22 14:16] LABS: BASOPHILS # (AUTO) 0.1 X10'3 (0-0.2); EOSINOPHILS # (AUTO) 0.6 X10'3 (0-0.9); EOSINOPHILS % (AUTO) 7.5 % (0-6); HEMATOCRIT 43.7 % (35.0-45.0); HEMOGLOBIN 14.2 g/dl (12.0-16.0); LYMPHOCYTES # (AUTO) 1.5 X10'3 (1.1-4.8); LYMPHOCYTES % (AUTO) 18.8 % (21-51); MEAN CORPUSCULAR HEMOGLOBIN 29.2 PG (27.0-31.0); MEAN CORPUSCULAR HGB CONC 32.5 g/dL (33.0-36.5); MEAN PLATELET VOLUME 8.3 FL (7.4-10.4); MONOCYTES # (AUTO) 0.7 X10'3 (0-0.9); MONOCYTES % (AUTO) 8.3 % (2-12); NEUTROPHILS # (AUTO) 5.1 X10'3 (1.8-7.7); NEUTROPHILS % (AUTO) 64.4 % (42-75); PLATELET COUNT 483 X10'3 (140-440); RED BLOOD COUNT 4.85 X10'6 (4.20-5.60); RED CELL DISTRIBUTION WIDTH 14.3 % (11.5-14.5); WHITE BLOOD COUNT 7.9 X10'3 (4.5-11.0)
[2024-01-22 14:32] LABS: ALBUMIN 3.3 G/DL (3.4-5.0); ANION GAP 8 (8-16); BLOOD UREA NITROGEN 26 MG/DL (7-18); CALCIUM 10.4 MG/DL (8.5-10.1); CHLORIDE 103 MMOL/L (99-107); CREATININE 1.37 MG/DL (0.40-0.90); ETHANOL < 10 MG/DL (<10); GLUCOSE 176 MG/DL (70-104); POTASSIUM 4.3 MMOL/L (3.5-5.1); SODIUM 141 MMOL/L (135-145); THYROID STIMULATING HORMONE 1.25 ulU/ml (0.34-4.50); TOTAL CARBON DIOXIDE 30.1 MMOL/L (24-32); eCRCL 50 ML/MIN; eGFR 39 ML/MIN
[2024-01-22 14:55] LABS: BILIRUBIN,URINE SMALL (Neg); CLARITY,URINE CLEAR (Clear); COLOR,URINE YELLOW (Yellow); GLUCOSE, URINE >=1000 mg/dl (Neg); KETONES,URINE TRACE mg/dl (Neg); LEUKOCYTE ESTERASE ,URINE NEGATIVE (Neg); NITRITES, URINE NEGATIVE (Neg); OCCULT BLOOD,URINE NEGATIVE (Neg); PROTEIN,URINE 100 mg/dl (Neg); UA COLLECTION TYPE CLN CATCH MIDSTREAM; UROBILINOGEN,URINE 0.2 E.U/dL (0.2-1.0)
[2024-01-22 15:01] LABS: URINE AMPHETAMINE SCREEN NEGATIVE (Neg); URINE BARBITUATE SCREEN NEGATIVE (Neg); URINE BENZODIAZEPINES SCREEN NEGATIVE (Neg); URINE CANNABINOID SCREEN NEGATIVE (Neg); URINE COCAINE SCREEN NEGATIVE (Neg); URINE METHADONE SCREEN NEGATIVE (Neg); URINE OPIATE SCREEN NEGATIVE (Neg); URINE PHENCYCLIDINE SCREEN NEGATIVE (Neg)
[2024-01-22 15:03] LABS: BACTERIA,URINE FEW /HPF (Neg); MUCUS STRANDS NONE SEEN /LPF (Neg); RBC,URINE 0-2 /HPF (0-2); SQUAMOUS EPITHELIAL CELL,UR FEW /LPF (FEW); WBC,URINE 0-4 /HPF (0-4)
[2024-01-22 15:04] LABS: FINE GRANULAR CAST 0-3 /LPF (NEGATIVE)
[2024-01-22 17:03] VITALS: TEMP 98.2
[2024-01-22] MEDS ORDERED: GABA-535 PO (17:44)
[2024-01-22] MEDS ORDERED: LAMO100T2 PO (17:44)
[2024-01-22] MEDS ORDERED: INSU200I4 (17:44)
[2024-01-22] MEDS ORDERED: EMPA1TAB PO (17:44)
[2024-01-22] MEDS ORDERED: AMLO-140 PO (17:51)
[2024-01-22] MEDS ORDERED: OXYC-150 PO (17:56)
[2024-01-22] MEDS ORDERED: LORA-269 PO (17:56)
[2024-01-22] MEDS ORDERED: LORA-268 PO (17:56)
[2024-01-22] MEDS ORDERED: METF-438 PO (18:04)
[2024-01-22] MEDS ORDERED: LORazepam 1 MG tablet PO PRN (18:35)
[2024-01-22] MEDS ORDERED: nitroGLYCERIN 0.4mg SUBLingual tab SL PRN (18:35)
[2024-01-22] MEDS ORDERED: AMLO5TAB PO (19:29)
[2024-01-22] MEDS ORDERED: NYSTATIN 60 GM POWDER-BULK CONTAINER TP SCH (20:00)
[2024-01-22] MEDS: lamoTRIgine 100mg tablet PO SCH (20:29)
[2024-01-22] MEDS: OLANZAPINE 5 MG TABLET PO SCH (20:29)
[2024-01-22] MEDS: propranolol 10mg tablet PO SCH (20:29)
[2024-01-22] MEDS: hydrOXYzine 25 MG tablet PO SCH (20:29)
[2024-01-22] MEDS: oxyCODONE/APAP 10/325mg tablet PO SCH (20:29)
[2024-01-22] MEDS: nystatin 15 GM powder TP SCH (20:30)
[2024-01-22] MEDS: diltiazem SR 60mg capsule (twice daily) PO SCH (20:30)
[2024-01-22] MEDS: gabapentin 400mg capsule PO SCH (20:30)
[2024-01-22] MEDS: ROSUVASTATIN CALCIUM 5 MG TABLET PO SCH (20:30)
[2024-01-22] MEDS: amoxicillin 250mg capsule PO ONE (20:37)
[2024-01-22] MEDS: cyclobenzaprine 10mg tablet PO SCH (20:37)
[2024-01-22] MEDS: metFORMIN 500mg tablet PO SCH (20:38)
[2024-01-22] MEDS ORDERED: amLODIPine 5mg tablet PO SCH (21:00)
[2024-01-23] MEDS: linagliptin 5mg tablet PO SCH (08:35)
[2024-01-23] MEDS: venlafaxine XR 75mg capsule (Q24H) PO SCH (08:36)
[2024-01-23] MEDS: fenofibrate 48mg tablet PO SCH (08:36)
[2024-01-23] MEDS: EMPAGLIFLOZIN 25 MG TABLET PO SCH (08:36)
[2024-01-23] MEDS: lamoTRIgine 100mg tablet PO SCH (08:37)
[2024-01-23] MEDS: gabapentin 400mg capsule PO SCH (08:37)
[2024-01-23] MEDS: methylphenidate 5mg tablet PO SCH (09:17)
[2024-01-23 10:00] VITALS: BP 143/77; PULSE 72; O2SAT 92
[2024-01-23 13:44] VITALS: RESP 14
[2024-01-23] MEDS ORDERED: lurasidone 60mg tablet PO SCH (17:00)
== END 2024-01-23 14:29 | disposition home or self-care (01) ==
LOC: ER 13:21
DX: R45.851 Suicidal ideations (principal); Z20.822 Contact with and (suspected) exposure to COVID-19; I48.91 Unspecified atrial fibrillation; E78.00 Pure hypercholesterolemia, unspecified; I12.9 Hypertensive chronic kidney disease with stage 1 through stage 4 chronic kidney disease, or unspecified chronic kidney disease; E11.22 Type 2 diabetes mellitus with diabetic chronic kidney disease; N18.9 Chronic kidney disease, unspecified; J44.9 Chronic obstructive pulmonary disease, unspecified; G89.29 Other chronic pain; F32.A Depression, unspecified; I25.10 Atherosclerotic heart disease of native coronary artery without angina pectoris; Z88.1 Allergy status to other antibiotic agents; Z98.890 Other specified postprocedural states; Z91.018 Allergy to other foods; Z79.2 Long term (current) use of antibiotics; Z79.82 Long term (current) use of aspirin; Z79.4 Long term (current) use of insulin; Z79.899 Other long term (current) drug therapy
CPT/HCPCS: 36415; 80048; 80305; 81001; 82948; 84443; 85025; 87811; 99284; G0480; Q0177; 80320

== ENCOUNTER 2024-01-28 23:04 | Emergency (ER) | payer MEDICARE, MEDICAID ==
[~2024-01-28] VITALS: Ht 182.9 cm; Wt 122.7 kg
[~2024-01-28 23:04] MED LIST changes: +AMLO5TAB PO; -ASPI-611 PO; +EMPA1TAB PO; -EMPA1TAB3 PO; -EZET10TA6 PO; -GABA800T11 PO; -GLUC1SYR; -INSU100C4 SQ; +INSU200I4; -LACT10SO3 PO; +LAMO100T2 PO; -LAMO25TA5 PO; -LANTUS SQ; -LISI20TA28 PO; +LORA-269 PO; +METF-438 PO; -MORP30TA PO; +OXYC-150 PO
[2024-01-28 23:05] VITALS: BP 164/86; PULSE 88; RESP 20; O2SAT 95
[2024-01-29] MEDS: HYDROcodone/acetaminophen 10/325mg tab PO ONE (02:30)
[2024-01-29] MEDS: diazepam 5mg tablet PO ONE (02:30)
[2024-01-29] MEDS ORDERED: DIAZ-351 PO (03:29)
[2024-01-29 04:15] VITALS: TEMP 98.6
== END 2024-01-29 04:18 | disposition home or self-care (01) ==
LOC: ER 23:04
DX: S29.012A Strain of muscle and tendon of back wall of thorax, initial encounter (principal); E78.00 Pure hypercholesterolemia, unspecified; J44.9 Chronic obstructive pulmonary disease, unspecified; I12.9 Hypertensive chronic kidney disease with stage 1 through stage 4 chronic kidney disease, or unspecified chronic kidney disease; N18.9 Chronic kidney disease, unspecified; E11.22 Type 2 diabetes mellitus with diabetic chronic kidney disease; F12.90 Cannabis use, unspecified, uncomplicated; F15.90 Other stimulant use, unspecified, uncomplicated; Z88.1 Allergy status to other antibiotic agents; Z91.018 Allergy to other foods; Z79.899 Other long term (current) drug therapy; Z79.2 Long term (current) use of antibiotics; Z79.4 Long term (current) use of insulin; Z90.81 Acquired absence of spleen; Z87.891 Personal history of nicotine dependence; X58.XXXA Exposure to other specified factors, initial encounter; Y93.89 Activity, other specified; Y92.89 Other specified places as the place of occurrence of the external cause; Y99.8 Other external cause status
CPT/HCPCS: 99283

== ENCOUNTER 2024-03-06 21:13 | Emergency (ER) | payer MEDICARE, MEDICAID ==
[~2024-03-06] VITALS: Ht 182.9 cm; Wt 117.7 kg
[~2024-03-06 21:13] MED LIST changes: -AMOX-101 PO; +CLON0.1T2 PO; +EZET10TA48 PO; -INSU200I4; +INSU200I4 SQ; +LISI10TA27 PO; +NOVLG; -ROSU40TA22 PO; +ROSU40TA71 PO
[2024-03-06 21:45] LABS: BASOPHILS # (AUTO) 0.1 X10'3 (0-0.2); BASOPHILS % (AUTO) 0.8 % (0-1); EOSINOPHILS # (AUTO) 0.9 X10'3 (0-0.9); EOSINOPHILS % (AUTO) 9.8 % (0-6); HEMATOCRIT 37.4 % (35.0-45.0); HEMOGLOBIN 12.2 g/dl (12.0-16.0); LYMPHOCYTES # (AUTO) 2.7 X10'3 (1.1-4.8); LYMPHOCYTES % (AUTO) 30.6 % (21-51); MEAN CORPUSCULAR HEMOGLOBIN 28.5 PG (27.0-31.0); MEAN CORPUSCULAR HGB CONC 32.7 g/dL (33.0-36.5); MEAN CORPUSCULAR VOLUME 87.3 FL (78-98); MEAN PLATELET VOLUME 7.9 FL (7.4-10.4); NEUTROPHILS # (AUTO) 4.2 X10'3 (1.8-7.7); NEUTROPHILS % (AUTO) 47.8 % (42-75); PLATELET COUNT 399 X10'3 (140-440); RED BLOOD COUNT 4.28 X10'6 (4.20-5.60); RED CELL DISTRIBUTION WIDTH 15.3 % (11.5-14.5); WHITE BLOOD COUNT 8.7 X10'3 (4.5-11.0)
[2024-03-06 21:56] LABS: ALANINE AMINOTRANSFERASE 27 U/L (12-78); ALBUMIN 2.9 G/DL (3.4-5.0); ALBUMIN/GLOBULIN RATIO 0.7 (1.1-1.5); ALKALINE PHOSPHATASE 84 IU/L (46-116); ANION GAP 7 (8-16); ASPARTATE AMINO TRANSFERASE 24 U/L (10-37); BILIRUBIN,TOTAL 0.2 MG/DL (0.1-1.0); BLOOD UREA NITROGEN 34 MG/DL (7-18); BUN/CREATININE RATIO 23.6 (10.0-20.0); CALCIUM 9.8 MG/DL (8.5-10.1); CHLORIDE 106 MMOL/L (99-107); CREATININE 1.44 MG/DL (0.40-0.90); GLUCOSE 248 MG/DL (70-104); POTASSIUM 3.8 MMOL/L (3.5-5.1); SODIUM 142 MMOL/L (135-145); TOTAL CARBON DIOXIDE 28.8 MMOL/L (24-32); TOTAL PROTEIN 6.8 G/DL (6.4-8.2); eCRCL 47 ML/MIN; eGFR 37 ML/MIN
[2024-03-06 22:06] LABS: ETHANOL < 10 MG/DL (<10)
[2024-03-06 23:47] LABS: BILIRUBIN,URINE NEGATIVE (Neg); CLARITY,URINE CLEAR (Clear); COLOR,URINE YELLOW (Yellow); GLUCOSE, URINE >=1000 mg/dl (Neg); KETONES,URINE NEGATIVE (Neg); LEUKOCYTE ESTERASE ,URINE NEGATIVE (Neg); NITRITES, URINE NEGATIVE (Neg); OCCULT BLOOD,URINE NEGATIVE (Neg); PROTEIN,URINE 30 mg/dl (Neg); UROBILINOGEN,URINE 0.2 E.U/dL (0.2-1.0)
[2024-03-06 23:53] LABS: UA COLLECTION TYPE CLN CATCH MIDSTREAM
[2024-03-06 23:57] LABS: URINE AMPHETAMINE SCREEN NEGATIVE (Neg); URINE BARBITUATE SCREEN NEGATIVE (Neg); URINE BENZODIAZEPINES SCREEN NEGATIVE (Neg); URINE CANNABINOID SCREEN NEGATIVE (Neg); URINE COCAINE SCREEN NEGATIVE (Neg); URINE METHADONE SCREEN NEGATIVE (Neg); URINE OPIATE SCREEN NEGATIVE (Neg); URINE PHENCYCLIDINE SCREEN NEGATIVE (Neg)
[2024-03-07 00:02] LABS: BACTERIA,URINE NONE SEEN /HPF (Neg); RBC,URINE 0-2 /HPF (0-2); SQUAMOUS EPITHELIAL CELL,UR NONE SEEN /LPF (FEW); WBC,URINE 0-4 /HPF (0-4)
[2024-03-07 00:03] LABS: MUCUS STRANDS NONE SEEN /LPF (Neg)
[2024-03-07] MEDS ORDERED: LORazepam 1 MG tablet PO PRN (00:55)
[2024-03-07] MEDS ORDERED: dextrose 50%-water 50ml dispensing syringe IV PRN ×2 (07:05)
[2024-03-07] MEDS ORDERED: glucagon, human recombinant 1mg kit SUBCUT PRN (07:05)
[2024-03-07] MEDS ORDERED: DEXTROSE 15 GM of carb/4 tabs (each vial/BOTTLE has 4 tablets) PO PRN ×2 (07:05)
[2024-03-07] MEDS: diltiazem SR 60mg capsule (twice daily) PO SCH (07:28)
[2024-03-07] MEDS: venlafaxine XR 75mg capsule (Q24H) PO SCH (07:28)
[2024-03-07] MEDS: propranolol 10mg tablet PO SCH (07:28)
[2024-03-07] MEDS: gabapentin 400mg capsule PO SCH (07:29)
[2024-03-07] MEDS: methylphenidate 5mg tablet PO SCH (07:29)
[2024-03-07] MEDS: lisinopril 10 MG tablet PO SCH (07:29)
[2024-03-07] MEDS: cloNIDine 0.1 mg tablet PO SCH (07:29)
[2024-03-07] MEDS: amLODIPine 5mg tablet PO SCH (07:30)
[2024-03-07] MEDS: lamoTRIgine 100mg tablet PO SCH (07:30)
[2024-03-07] MEDS: ezetimibe 10mg tablet PO SCH (07:30)
[2024-03-07] MEDS ORDERED: METHYLPHENIDATE HCL 40 MG PO SCH (08:00)
[2024-03-07] MEDS ORDERED: metFORMIN 500mg tablet PO SCH (08:00)
[2024-03-07] MEDS: INSULIN LISPRO 100 UNIT/ML INSULN.PEN MULTI-DOSE SQ SCH (12:21)
[2024-03-07 16:00] VITALS: BP 155/84; PULSE 85; RESP 16; TEMP 97.3; O2SAT 94
[2024-03-07] MEDS ORDERED: lurasidone 60mg tablet PO SCH (17:00)
[2024-03-07] MEDS ORDERED: lamoTRIgine 100mg tablet PO SCH (21:00)
[2024-03-07] MEDS ORDERED: hydrOXYzine 25 MG tablet PO SCH (21:00)
[2024-03-07] MEDS ORDERED: OLANZAPINE 5 MG TABLET PO SCH (21:00)
[2024-03-07] MEDS ORDERED: gabapentin 400mg capsule PO SCH (21:00)
== END 2024-03-07 15:48 ==
LOC: ER 21:14
DX: R45.851 Suicidal ideations (principal); Z20.822 Contact with and (suspected) exposure to COVID-19; I48.91 Unspecified atrial fibrillation; E78.00 Pure hypercholesterolemia, unspecified; J44.9 Chronic obstructive pulmonary disease, unspecified; I12.9 Hypertensive chronic kidney disease with stage 1 through stage 4 chronic kidney disease, or unspecified chronic kidney disease; E11.22 Type 2 diabetes mellitus with diabetic chronic kidney disease; N18.9 Chronic kidney disease, unspecified; F32.A Depression, unspecified; Z88.1 Allergy status to other antibiotic agents; Z91.018 Allergy to other foods; Z91.013 Allergy to seafood; Z79.899 Other long term (current) drug therapy; Z79.4 Long term (current) use of insulin; Z79.84 Long term (current) use of oral hypoglycemic drugs; Z90.81 Acquired absence of spleen
CPT/HCPCS: 36415; 80053; 80305; 81001; 82948; 84443; 85025; 87811; 99285; G0480; J1815; 80320

== ENCOUNTER 2024-04-30 16:04 | Emergency (ER) | payer MEDICARE, MEDICAID ==
[~2024-04-30] VITALS: Ht 182.9 cm; Wt 121.0 kg
[~2024-04-30 16:04] MED LIST changes: -CYCL-1 PO; -EMPA1TAB PO; -FENO134C22 PO; -INSU200I4 SQ; -NITR0.4T48 SL; -NOVLG; -OXYC-150 PO; -ROSU40TA71 PO
[2024-04-30 16:29] VITALS: BP 136/91; PULSE 103; RESP 16; TEMP 98.1; O2SAT 94
[2024-04-30 17:12] LABS: BASOPHILS # (AUTO) 0.1 X10'3 (0-0.2); BASOPHILS % (AUTO) 0.7 % (0-1); EOSINOPHILS # (AUTO) 0.6 X10'3 (0-0.9); EOSINOPHILS % (AUTO) 5.9 % (0-6); HEMOGLOBIN 14.3 g/dl (12.0-16.0); LYMPHOCYTES # (AUTO) 2.4 X10'3 (1.1-4.8); LYMPHOCYTES % (AUTO) 22.5 % (21-51); MEAN CORPUSCULAR HEMOGLOBIN 27.9 PG (27.0-31.0); MEAN CORPUSCULAR HGB CONC 31.8 g/dL (33.0-36.5); MEAN CORPUSCULAR VOLUME 87.8 FL (78-98); MEAN PLATELET VOLUME 9.8 FL (7.4-10.4); MONOCYTES # (AUTO) 0.9 X10'3 (0-0.9); MONOCYTES % (AUTO) 8.2 % (2-12); NEUTROPHILS # (AUTO) 6.7 X10'3 (1.8-7.7); NEUTROPHILS % (AUTO) 62.7 % (42-75); PLATELET COUNT 583 X10'3 (140-440); RED BLOOD COUNT 5.13 X10'6 (4.20-5.60); RED CELL DISTRIBUTION WIDTH 16.6 % (11.5-14.5); WHITE BLOOD COUNT 10.8 X10'3 (4.5-11.0)
[2024-04-30 17:26] LABS: ALANINE AMINOTRANSFERASE 21 U/L (12-78); ALBUMIN 3.3 G/DL (3.4-5.0); ALBUMIN/GLOBULIN RATIO 0.8 (1.1-1.5); ALKALINE PHOSPHATASE 91 IU/L (46-116); ANION GAP 6 (8-16); ASPARTATE AMINO TRANSFERASE 24 U/L (10-37); BILIRUBIN,TOTAL 0.2 MG/DL (0.1-1.0); BLOOD UREA NITROGEN 24 MG/DL (7-18); CALCIUM 10.2 MG/DL (8.5-10.1); CHLORIDE 102 MMOL/L (99-107); GLUCOSE 381 MG/DL (70-104); POTASSIUM 4.5 MMOL/L (3.5-5.1); SODIUM 140 MMOL/L (135-145); TOTAL CARBON DIOXIDE 31.6 MMOL/L (24-32); TOTAL PROTEIN 7.5 G/DL (6.4-8.2); eCRCL 57 ML/MIN; eGFR 46 ML/MIN
[2024-04-30 17:36] LABS: PRO BRAIN NATRIURETIC PEPTIDE 172 PG/ML (0-125)
== END 2024-04-30 20:08 | disposition left against medical advice (07) ==
LOC: ER 16:05
DX: R07.89 Other chest pain (principal); Z53.21 Procedure and treatment not carried out due to patient leaving prior to being seen by health care provider
CPT/HCPCS: 36415; 71045; 80053; 83880; 84484; 85025; 93005

== ENCOUNTER 2024-07-20 16:45 | Emergency (ER) | payer MEDICARE, MEDICAID ==
[~2024-07-20] VITALS: Ht 182.9 cm; Wt 121.4 kg
[2024-07-20 17:47] LABS: BASOPHILS # (AUTO) 0.1 X10'3 (0-0.2); BASOPHILS % (AUTO) 0.6 % (0-1); EOSINOPHILS # (AUTO) 0.5 X10'3 (0-0.9); EOSINOPHILS % (AUTO) 5.6 % (0-6); HEMATOCRIT 38.1 % (35.0-45.0); HEMOGLOBIN 12.2 g/dl (12.0-16.0); LYMPHOCYTES # (AUTO) 2.8 X10'3 (1.1-4.8); LYMPHOCYTES % (AUTO) 31.6 % (21-51); MEAN CORPUSCULAR HEMOGLOBIN 28.6 PG (27.0-31.0); MEAN CORPUSCULAR HGB CONC 32.1 g/dL (33.0-36.5); MEAN CORPUSCULAR VOLUME 89.2 FL (78-98); MEAN PLATELET VOLUME 8.3 FL (7.4-10.4); MONOCYTES % (AUTO) 11.1 % (2-12); NEUTROPHILS # (AUTO) 4.5 X10'3 (1.8-7.7); NEUTROPHILS % (AUTO) 51.1 % (42-75); PLATELET COUNT 398 X10'3 (140-440); RED BLOOD COUNT 4.27 X10'6 (4.20-5.60); RED CELL DISTRIBUTION WIDTH 17.9 % (11.5-14.5); WHITE BLOOD COUNT 8.8 X10'3 (4.5-11.0)
[2024-07-20 18:00] LABS: ALANINE AMINOTRANSFERASE 9 U/L (12-78); ALBUMIN 2.8 G/DL (3.4-5.0); ALBUMIN/GLOBULIN RATIO 0.7 (1.1-1.5); ALKALINE PHOSPHATASE 67 IU/L (46-116); ANION GAP 7 (8-16); ASPARTATE AMINO TRANSFERASE 20 U/L (10-37); BILIRUBIN,TOTAL 0.2 MG/DL (0.1-1.0); BLOOD UREA NITROGEN 42 MG/DL (7-18); BUN/CREATININE RATIO 28.4 (10.0-20.0); CALCIUM 9.6 MG/DL (8.5-10.1); CHLORIDE 104 MMOL/L (99-107); CREATININE 1.48 MG/DL (0.40-0.90); ETHANOL < 10 MG/DL (<10); GLUCOSE 87 MG/DL (70-104); POTASSIUM 4.6 MMOL/L (3.5-5.1); SODIUM 138 MMOL/L (135-145); TOTAL CARBON DIOXIDE 27.4 MMOL/L (24-32); TOTAL PROTEIN 6.9 G/DL (6.4-8.2); eCRCL 45 ML/MIN; eGFR 36 ML/MIN
[2024-07-20 18:32] LABS: BILIRUBIN,URINE NEGATIVE (Neg); CLARITY,URINE CLEAR (Clear); COLOR,URINE YELLOW (Yellow); GLUCOSE, URINE >=1000 mg/dl (Neg); KETONES,URINE NEGATIVE (Neg); LEUKOCYTE ESTERASE ,URINE NEGATIVE (Neg); NITRITES, URINE NEGATIVE (Neg); OCCULT BLOOD,URINE NEGATIVE (Neg); PROTEIN,URINE >=300 mg/dl (Neg); UROBILINOGEN,URINE 0.2 E.U/dL (0.2-1.0)
[2024-07-20 18:37] LABS: UA COLLECTION TYPE CLN CATCH MIDSTREAM
[2024-07-20 18:38] LABS: BACTERIA,URINE FEW /HPF (Neg); MUCUS STRANDS NONE SEEN /LPF (Neg); RBC,URINE NONE SEEN /HPF (0-2); SQUAMOUS EPITHELIAL CELL,UR NONE SEEN /LPF (FEW); WBC,URINE 0-4 /HPF (0-4)
[2024-07-20 19:10] LABS: URINE AMPHETAMINE SCREEN NEGATIVE (Neg); URINE BARBITUATE SCREEN NEGATIVE (Neg); URINE BENZODIAZEPINES SCREEN NEGATIVE (Neg); URINE CANNABINOID SCREEN NEGATIVE (Neg); URINE COCAINE SCREEN NEGATIVE (Neg); URINE METHADONE SCREEN NEGATIVE (Neg); URINE OPIATE SCREEN POSITIVE (Neg); URINE PHENCYCLIDINE SCREEN NEGATIVE (Neg)
[2024-07-20 20:00] VITALS: BP 136/78; PULSE 61; RESP 16; TEMP 98.7; O2SAT 98
== END 2024-07-20 23:56 | disposition home or self-care (01) ==
LOC: ER 16:45
DX: T40.2X1A Poisoning by other opioids, accidental (unintentional), initial encounter (principal); F12.90 Cannabis use, unspecified, uncomplicated; F15.90 Other stimulant use, unspecified, uncomplicated; E78.00 Pure hypercholesterolemia, unspecified; J44.9 Chronic obstructive pulmonary disease, unspecified; I48.91 Unspecified atrial fibrillation; E11.22 Type 2 diabetes mellitus with diabetic chronic kidney disease; I13.0 Hypertensive heart and chronic kidney disease with heart failure and stage 1 through stage 4 chronic kidney disease, or unspecified chronic kidney disease; I50.9 Heart failure, unspecified; N18.9 Chronic kidney disease, unspecified; Z98.890 Other specified postprocedural states; Z95.1 Presence of aortocoronary bypass graft; Z88.1 Allergy status to other antibiotic agents; Z91.018 Allergy to other foods; Z79.899 Other long term (current) drug therapy; Y92.89 Other specified places as the place of occurrence of the external cause
CPT/HCPCS: 36415; 80053; 80305; 81001; 82948; 85025; 93005; 99285; G0480; 80320

== ENCOUNTER 2024-08-30 17:05 | Emergency (ER) | payer MEDICARE, MEDICAID ==
[~2024-08-30] VITALS: Ht 180.3 cm; Wt 102.3 kg
[2024-08-30 17:12] VITALS: BP 144/81; PULSE 76; TEMP 98.3; O2SAT 96
[2024-08-30 17:35] VITALS: RESP 16
[2024-08-30 17:48] LABS: BASOPHILS # (AUTO) 0.1 X10'3 (0-0.2); BASOPHILS % (AUTO) 0.8 % (0-1); EOSINOPHILS # (AUTO) 0.7 X10'3 (0-0.9); HEMATOCRIT 41.3 % (35.0-45.0); HEMOGLOBIN 13.5 g/dl (12.0-16.0); LYMPHOCYTES # (AUTO) 1.9 X10'3 (1.1-4.8); LYMPHOCYTES % (AUTO) 25.2 % (21-51); MEAN CORPUSCULAR HGB CONC 32.7 g/dL (33.0-36.5); MEAN CORPUSCULAR VOLUME 88.7 FL (78-98); MEAN PLATELET VOLUME 8.8 FL (7.4-10.4); MONOCYTES # (AUTO) 0.7 X10'3 (0-0.9); NEUTROPHILS # (AUTO) 4.1 X10'3 (1.8-7.7); PLATELET COUNT 476 X10'3 (140-440); RED BLOOD COUNT 4.66 X10'6 (4.20-5.60); RED CELL DISTRIBUTION WIDTH 17.1 % (11.5-14.5); WHITE BLOOD COUNT 7.5 X10'3 (4.5-11.0)
[2024-08-30 17:59] LABS: ALANINE AMINOTRANSFERASE 24 U/L (12-78); ALBUMIN/GLOBULIN RATIO 0.7 (1.1-1.5); ALKALINE PHOSPHATASE 90 IU/L (46-116); ANION GAP 4 (8-16); ASPARTATE AMINO TRANSFERASE 27 U/L (10-37); BILIRUBIN,TOTAL 0.2 MG/DL (0.1-1.0); BLOOD UREA NITROGEN 25 MG/DL (7-18); BUN/CREATININE RATIO 19.1 (10.0-20.0); CALCIUM 9.7 MG/DL (8.5-10.1); CHLORIDE 103 MMOL/L (99-107); CREATININE 1.31 MG/DL (0.40-0.90); GLUCOSE 195 MG/DL (70-104); POTASSIUM 4.3 MMOL/L (3.5-5.1); SODIUM 139 MMOL/L (135-145); TOTAL CARBON DIOXIDE 32.3 MMOL/L (24-32); TOTAL PROTEIN 7.4 G/DL (6.4-8.2); eCRCL 50 ML/MIN; eGFR 41 ML/MIN
[2024-08-30 18:08] LABS: PRO BRAIN NATRIURETIC PEPTIDE 189 PG/ML (0-125)
== END 2024-08-30 18:34 | disposition home or self-care (01) ==
LOC: ER 17:05
DX: R07.89 Other chest pain (principal); E78.00 Pure hypercholesterolemia, unspecified; I48.91 Unspecified atrial fibrillation; J44.9 Chronic obstructive pulmonary disease, unspecified; E11.22 Type 2 diabetes mellitus with diabetic chronic kidney disease; I13.0 Hypertensive heart and chronic kidney disease with heart failure and stage 1 through stage 4 chronic kidney disease, or unspecified chronic kidney disease; I50.9 Heart failure, unspecified; N18.9 Chronic kidney disease, unspecified; G89.29 Other chronic pain; F32.A Depression, unspecified; Z95.1 Presence of aortocoronary bypass graft; Z91.018 Allergy to other foods; Z79.899 Other long term (current) drug therapy; Z79.84 Long term (current) use of oral hypoglycemic drugs
CPT/HCPCS: 36415; 71045; 80053; 83880; 84484; 85025; 93005; 99285

== ENCOUNTER 2024-10-09 21:26 | Emergency (ER) | payer MEDICARE, MEDICAID ==
[~2024-10-09] VITALS: Ht 182.9 cm; Wt 109.6 kg
[2024-10-09 21:31] VITALS: BP 169/96; PULSE 82; RESP 18; O2SAT 96
[2024-10-10 02:06] VITALS: TEMP 97.2
== END 2024-10-10 02:07 | disposition home or self-care (01) ==
LOC: ER 21:27
DX: R09.A2 Foreign body sensation, throat (principal); E11.22 Type 2 diabetes mellitus with diabetic chronic kidney disease; E78.00 Pure hypercholesterolemia, unspecified; I10 Essential (primary) hypertension; I48.91 Unspecified atrial fibrillation; J44.9 Chronic obstructive pulmonary disease, unspecified; N18.9 Chronic kidney disease, unspecified; Z88.8 Allergy status to other drugs, medicaments and biological substances; Z88.1 Allergy status to other antibiotic agents; Z95.1 Presence of aortocoronary bypass graft
CPT/HCPCS: 70360; 99283

== ENCOUNTER 2024-11-08 15:22 | Emergency (ER) | payer MEDICARE, MEDICAID ==
[~2024-11-08] VITALS: Ht 182.9 cm; Wt 98.3 kg
[2024-11-08 15:43] VITALS: BP 135/81; PULSE 82; RESP 15; O2SAT 95
[2024-11-08] MEDS ORDERED: METH-798 PO (18:11)
[2024-11-08] MEDS ORDERED: PER5325T PO (18:11)
[2024-11-08 18:44] VITALS: TEMP 97.3
== END 2024-11-08 18:45 | disposition home or self-care (01) ==
LOC: ER 15:23
DX: S43.491A Other sprain of right shoulder joint, initial encounter (principal); S80.02XA Contusion of left knee, initial encounter; S80.01XA Contusion of right knee, initial encounter; I13.0 Hypertensive heart and chronic kidney disease with heart failure and stage 1 through stage 4 chronic kidney disease, or unspecified chronic kidney disease; E11.22 Type 2 diabetes mellitus with diabetic chronic kidney disease; I50.9 Heart failure, unspecified; N18.9 Chronic kidney disease, unspecified; J44.9 Chronic obstructive pulmonary disease, unspecified; I48.91 Unspecified atrial fibrillation; E78.00 Pure hypercholesterolemia, unspecified; G89.29 Other chronic pain; F32.A Depression, unspecified; F12.90 Cannabis use, unspecified, uncomplicated; F15.90 Other stimulant use, unspecified, uncomplicated; Z88.1 Allergy status to other antibiotic agents; Z95.1 Presence of aortocoronary bypass graft; Z91.018 Allergy to other foods; Z79.899 Other long term (current) drug therapy; W01.0XXA Fall on same level from slipping, tripping and stumbling without subsequent striking against object, initial encounter; Y93.89 Activity, other specified; Y92.89 Other specified places as the place of occurrence of the external cause; Y99.8 Other external cause status
CPT/HCPCS: 99284; A4565

== ENCOUNTER 2024-11-28 23:21 | Emergency (ER) | payer MEDICARE, MEDICAID ==
[~2024-11-28] VITALS: Ht 182.9 cm; Wt 122.7 kg
[~2024-11-28 23:21] MED LIST changes: +METH-798 PO; +PER5325T PO
--- NOTE | 2024-11-28 23:34 | Physician Documentation ---
History of Present Illness ~ Stated Complaint: DROWSY Time Seen by MD: 02:54 OK to notify your PCP?: Yes Primary Medical Doctor: JACINTO DOW Source: patient Mode of Arrival: EMS ([facility] ambulance) Exam Limitations: no limitations HPI This is a 64-year-old female who comes in for feeling drowsy after taking a double dose of her Flexeril. The patient states she typically takes Flexeril 3 times a day and she called her pharmacist today and he told her that she can take two. She states she took tooth with the 1st time she was not sure what time was when she took the medication but now she was feeling very drowsy. She called 911 because she says she wants to be watched. Medication Reconciliation Allergies: Coded Allergies: ciprofloxacin (Verified Allergy, Severe, 08/30/24) pineapple (Verified Allergy, Severe, CANNOT SWALLOW, 08/30/24) Uncoded Allergies: FISH (Allergy, Unknown, 01/16/14) Scheduled Amlodipine Besylate (Amlodipine Besylate), 1 TABLET PO DAILY, (Reported) Clonidine HCl (Clonidine HCl), 1 TAB PO BID, (Reported) Diltiazem HCl (Diltiazem ER), 2 CAP PO Q12H, (Reported) Ezetimibe (Ezetimibe), 1 TAB PO DAILY, (Reported) Gabapentin (Gabapentin), 1 CAP PO QAM, (Reported) Gabapentin (Gabapentin), 3 CAP PO HS, (Reported) Hydroxyzine Hcl (Atarax), 50 MG PO HS, (Reported) Lamotrigine (LaMICtal tablet), 2 TAB PO HS, (Reported) Lamotrigine* (Lamictal*), 1 TAB PO QAM, (Reported) Lisinopril (Lisinopril), 1 TAB PO DAILY, (Reported) Lurasidone HCl (Latuda), 1 TAB PO WS, (Reported) Metformin HCl (Metformin HCl), 1 TAB PO BID, (Reported) Methocarbamol (Methocarbamol), 1 TAB PO Q8H Methylphenidate HCl (Methylphenidate LA), 40 MG PO QAM, (Reported) Olanzapine (Olanzapine), 1 TAB PO HS, (Reported) Propranolol Hcl* (Inderal*), 1 TAB PO TID, (Reported) Venlafaxine HCl (Venlafaxine HCl ER), 1 TAB PO WB, (Reported) Scheduled PRN Lorazepam (Ativan), 1 TAB PO DAILY PRN for anxiety, (Reported) Oxycodone Hcl/Acetaminophen 5/325 MG* (Percocet 5/325 MG*), 1 TAB PO Q6H PRN for moderate or severe pain Past Medical History Past Medical History: *PHONE ENGINEER*, Vertigo, *CARDIOVASCULAR*, Atrial Fibrillation, High Cholesterol, Hypertension, COPD, Pancreatitis, Chronic Kidney Disease, Diabetes, *MUSCULOSKELETAL*, Chronic Pain, Extremity Fracture, *CANCER*, *PSYCH*, Bipolar, Depression Past Surgical History: cancer surgery, orthopedic surgeries Other Past Surgical History: partial splenectomy Patient History: (CABG) Coronary artery bypass grafting FATHER, Name: ELIZABETH, , Age: Unknown, Cause: Cirrhosis, alcoholic, Not a twin (CAD) Coronary arteriosclerosis FAMILY/OTHER, Name: BROTHER Margaux PRESLEY, Born 01/30/57, Age: 67, Not a twin, Onset:50's - 60 (STINT PLACEMENT) (CHF) Congestive heart failure FATHER, Name: ELIZABETH, , Age: Unknown, Cause: Cirrhosis, alcoholic, Not a twin (COPD) Chronic obstructive lung disease FATHER, Name: ELIZABETH, , Age: Unknown, Cause: Cirrhosis, alcoholic, Not a twin (CVA) Cerebrovascular accident FATHER, Name: ELIZABETH, , Age: Unknown, Cause: Cirrhosis, alcoholic, Not a twin (Cancer) Malignant carcinoid tumor FATHER, Name: ELIZABETH, , Age: Unknown, Cause: Cirrhosis, alcoholic, Not a twin (DM Type 2) Diabetes mellitus type 2 FAMILY/OTHER, Name: BROTHER Margaux PRESLEY, Born 01/30/57, Age: 67, Not a twin, Onset:50's - 60 (DM Type1) Diabetes mellitus type 1 FATHER, Name: ELIZABETH, , Age: Unknown, Cause: Cirrhosis, alcoholic, Not a twin ([place]) Myocardial infarction FATHER, Name: ELIZABTEH, , Age: Unknown, Cause: Cirrhosis, alcoholic, Not a twin (PVD) Peripheral vascular disease FATHER, Name: ELIZABETH, , Age: Unknown, Cause: Cirrhosis, alcoholic, Not a twin (TIA) Transient ischemic attack FATHER, Name: ELIZABETH, , Age: Unknown, Cause: Cirrhosis, alcoholic, Not a twin Alzheimer's disease FATHER, Name: ELIZABETH, , Age: Unknown, Cause: Cirrhosis, alcoholic, Not a twin Aortic aneurysm FATHER, Name: ELIZABETH, , Age: Unknown, Cause: Cirrhosis, alcoholic, Not a twin Asthma FATHER, Name: ELIZABETH, , Age: Unknown, Cause: Cirrhosis, alcoholic, Not a twin Cardiac arrest FATHER, Name: ELIZABETH, , Age: Unknown, Cause: Cirrhosis, alcoholic, Not a twin FH: hepatic cirrhosis FATHER, Name: ELIZABETH, , Age: Unknown, Cause: Cirrhosis, alcoholic, Not a twin Hypercholesterolemia FATHER, Name: ELIZABETH, , Age: Unknown, Cause: Cirrhosis, alcoholic, Not a twin Alcohol Use: Sober Drug Use: marijuana, methamphetamine Lives with: Family Lives In: Home Occupation: employed Physical Exam Pulse Oximetry Reflects: adequate oxygenation General Appearance: alert, WD/WN, no apparent distress Progress Results/Orders Results/Orders Vital Signs 11/28/24 11/29/24 11/29/24 23:28 01:56 02:30 Temp 98.0 97.9 Pulse 72 56 Resp 16 14 16 B/P (MAP) 124/71 111/53 (72) Pulse Ox 94 92 O2 Flow Rate 0 0 Medical Decision Making Findings Patient presents to the emergency room as per HPI. Differentials include but are not limited to medication side effect, intentional overdose, metabolic disturbance, urinary tract infection. Given HPI she was likely suffering from medication side effect and he had not feel she requires emergent labs or imaging. Vital signs reassuring she was sleeping comfortably and easily arousable. She has been watched in the emergency room for a time with improvement of symptoms I do not feel she was any danger of overdose. Departure Disposition: HOME / SELF CARE / HOMELESS Impression: Primary Impression: Medication side effect Condition: Stable Discharge Instructions: General Discharge Instructions Referrals: NO PRIMARY CARE PROVIDER (PCP) Education Educated: Patient Educated regarding: diagnosis, treatment, need for follow up Signature Scribe Signature: No scribe Attestation: The note accurately reflects work and decisions made by me.Mehul Haley MD 11/29/24 03:12 HEIDI ALEJANDRE Nov 28, 2024 23:34 MEHUL HALEY MD Nov 29, 2024 03:12
[2024-11-29 01:56] VITALS: BP 111/53; PULSE 56; TEMP 97.9; O2SAT 92
[2024-11-29 02:30] VITALS: RESP 16
== END 2024-11-29 04:24 | disposition home or self-care (01) ==
LOC: ER 23:22
DX: I12.9 Hypertensive chronic kidney disease with stage 1 through stage 4 chronic kidney disease, or unspecified chronic kidney disease (principal); E11.22 Type 2 diabetes mellitus with diabetic chronic kidney disease; N18.9 Chronic kidney disease, unspecified; T48.1X5A Adverse effect of skeletal muscle relaxants [neuromuscular blocking agents], initial encounter; E78.00 Pure hypercholesterolemia, unspecified; F31.9 Bipolar disorder, unspecified; I48.91 Unspecified atrial fibrillation; J44.9 Chronic obstructive pulmonary disease, unspecified; Z88.1 Allergy status to other antibiotic agents; Z88.8 Allergy status to other drugs, medicaments and biological substances; X58.XXXA Exposure to other specified factors, initial encounter; Y92.89 Other specified places as the place of occurrence of the external cause
CPT/HCPCS: 99284; A4615

== ENCOUNTER 2024-12-20 02:34 | Emergency (ER) | payer MEDICARE, MEDICAID ==
[~2024-12-20] VITALS: Ht 182.9 cm; Wt 99.0 kg
[~2024-12-20 02:34] MED LIST changes: -PER5325T PO
[2024-12-20 02:38] VITALS: TEMP 96.8
[2024-12-20] MEDS: diphenhydrAMINE 50 mg/ml inj IM ONE (03:22)
[2024-12-20] MEDS: MIDAZolam 5mg/ml 2ml vial IM ONE (03:23)
[2024-12-20] MEDS: haloperidol lactate 5mg/ml inj IM ONE (03:23)
--- NOTE | 2024-12-20 03:43 | Physician Documentation ---
History of Present Illness ~ Chief Complaint: Psych Stated Complaint: SI Time Seen by MD: 03:15 Primary Medical Doctor: JACINTO DOW Mode of Arrival: POV HPI Patient presents to the emergency room sent from [facility] hotline for evaluation. Patient reports that she is done with life. She states that there is so much stuff going on her life as well as her mind in her body that she is just done with life. While being triaged in her room she took pulse ox cord and tied around her neck and began strangling herself. Medication Reconciliation Allergies: Coded Allergies: ciprofloxacin (Verified Allergy, Severe, 12/20/24) pineapple (Verified Allergy, Severe, CANNOT SWALLOW, 12/20/24) Uncoded Allergies: FISH (Allergy, Unknown, 01/16/14) Scheduled Amlodipine Besylate (Amlodipine Besylate), 1 TABLET PO DAILY, (Reported) Clonidine HCl (Clonidine HCl), 1 TAB PO BID, (Reported) Diltiazem HCl (Diltiazem ER), 2 CAP PO Q12H, (Reported) Ezetimibe (Ezetimibe), 1 TAB PO DAILY, (Reported) Gabapentin (Gabapentin), 1 CAP PO QAM, (Reported) Gabapentin (Gabapentin), 3 CAP PO HS, (Reported) Hydroxyzine Hcl (Atarax), 50 MG PO HS, (Reported) Lamotrigine (LaMICtal tablet), 2 TAB PO HS, (Reported) Lamotrigine* (Lamictal*), 1 TAB PO QAM, (Reported) Lisinopril (Lisinopril), 1 TAB PO DAILY, (Reported) Lurasidone HCl (Latuda), 1 TAB PO WS, (Reported) Metformin HCl (Metformin HCl), 1 TAB PO BID, (Reported) Methocarbamol (Methocarbamol), 1 TAB PO Q8H Methylphenidate HCl (Methylphenidate LA), 40 MG PO QAM, (Reported) Olanzapine (Olanzapine), 1 TAB PO HS, (Reported) Propranolol Hcl* (Inderal*), 1 TAB PO TID, (Reported) Venlafaxine HCl (Venlafaxine HCl ER), 1 TAB PO WB, (Reported) Scheduled PRN Lorazepam (Ativan), 1 TAB PO DAILY PRN for anxiety, (Reported) Past Medical History Past Medical History: *ORACLE DATABASE ADMINISTRATOR*, Vertigo, *CARDIOVASCULAR*, Atrial Fibrillation, High Cholesterol, Hypertension, COPD, Pancreatitis, Chronic Kidney Disease, Diabetes, *MUSCULOSKELETAL*, Chronic Pain, Extremity Fracture, *CANCER*, *PSYCH*, Bipolar, Depression Past Surgical History: cancer surgery, orthopedic surgeries Other Past Surgical History: partial splenectomy Patient History: (CABG) Coronary artery bypass grafting FATHER, Name: ELIZABETH, , Age: Unknown, Cause: Cirrhosis, alcoholic, Not a twin (CAD) Coronary arteriosclerosis FAMILY/OTHER, Name: BROTHER Margaux PRESLEY, Born 01/30/57, Age: 67, Not a twin, Onset:50's - 60 (STINT PLACEMENT) (CHF) Congestive heart failure FATHER, Name: ELIZABETH, , Age: Unknown, Cause: Cirrhosis, alcoholic, Not a twin (COPD) Chronic obstructive lung disease FATHER, Name: ELIZABETH, , Age: Unknown, Cause: Cirrhosis, alcoholic, Not a twin (CVA) Cerebrovascular accident FATHER, Name: ELIZABETH, , Age: Unknown, Cause: Cirrhosis, alcoholic, Not a twin (Cancer) Malignant carcinoid tumor FATHER, Name: ELIZABETH, , Age: Unknown, Cause: Cirrhosis, alcoholic, Not a twin (DM Type 2) Diabetes mellitus type 2 FAMILY/OTHER, Name: BROTHER Margaux PRESLEY, Born 01/[birth year], Age: 67, Not a twin, Onset:50 - (DM Type1) Diabetes mellitus type 1 FATHER, Name: ELIZABETH, , Age: Unknown, Cause: Cirrhosis, alcoholic, Not a twin ([place]) Myocardial infarction FATHER, Name: ELIZABETH, , Age: Unknown, Cause: Cirrhosis, alcoholic, Not a twin (PVD) Peripheral vascular disease FATHER, Name: ELIZABETH, , Age: Unknown, Cause: Cirrhosis, alcoholic, Not a twin (TIA) Transient ischemic attack FATHER, Name: ELIZABETH, , Age: Unknown, Cause: Cirrhosis, alcoholic, Not a twin Alzheimer's disease FATHER, Name: ELIZABETH, , Age: Unknown, Cause: Cirrhosis, alcoholic, Not a twin Aortic aneurysm FATHER, Name: ELIZABETH, , Age: Unknown, Cause: Cirrhosis, alcoholic, Not a twin Asthma FATHER, Name: ELIZABETH, , Age: Unknown, Cause: Cirrhosis, alcoholic, Not a twin Cardiac arrest FATHER, Name: ELIZABETH, , Age: Unknown, Cause: Cirrhosis, alcoholic, Not a twin FH: hepatic cirrhosis FATHER, Name: ELIZABETH, , Age: Unknown, Cause: Cirrhosis, alcoholic, Not a twin Hypercholesterolemia FATHER, Name: ELIZABETH, , Age: Unknown, Cause: Cirrhosis, alcoholic, Not a twin Alcohol Use: Sober Drug Use: marijuana, methamphetamine Lives with: Family Lives In: Home Occupation: employed Review of Systems ROS All review of systems negative except as per HPI Physical Exam Vital Signs: Temperature: 96.8, Heart Rate: 99, Respiratory Rate: 15, BP: 156/98, Pulse Oximetry: 99, Weight: 98.960 Physical Exam General: Patient is awake, alert, oriented x4 in no acute distress Head: Normocephalic and atraumatic. Eyes: Conjunctival normal. EOMI. PERRL. ENT: Mucous membranes moist. Neck: Supple, trachea is midline. No hot potato voice, maintaining secretions, positive ligature rodgers Chest: Clear to auscultation bilaterally without rales, rhonchi, or wheezes. There is no accessory muscle use or retractions. Cardiac: RRR without murmurs, gallops, or rubs. Psych: Decreased affect, suicidal, poor eye contact Progress Results/Orders Results/Orders Orders - MEHUL HALEY MD Urinalysis (12/20/24 03:15) Drug Screen, Urine (12/20/24 03:15) Med Rec (12/20/24 03:15) 1799.11 (12/20/24 03:15) Close Observation Level (12/20/24 03:15) Covid19 Binax Poc Result Entry (12/20/24 03:15) Substance Use Navigator (12/20/24 03:15) Regular Diet (12/20/24 Breakfast) Behavioral Restraints (12/20/24 ) Behavioral Restraints (12/20/24 ) Behavioral Restraints (12/20/24 ) Ct Neck Soft Tissues (12/20/24 04:55) Completed Orders - MEHUL HALEY MD Cbc/Diff (12/20/24 03:15) Ethanol (12/20/24 03:15) TSH (12/20/24 03:15) BMP (12/20/24 03:15) Midazolam 5 Mg/Ml 2ml Inj (Versed 5 Mg/M (12/20/24 03:20) Haloperidol Lact. (Haldol) (12/20/24 03:20) Diphenhydramine Inj (Benadryl Inj.) (12/20/24 03:20) Ct Neck Soft Tissues (12/20/24 04:55) Iohexol 300mg/Ml 100ml Inj. (Omnipaque-3 (12/20/24 04:54) Medications Received in ER Medications (Trade) Dose Ordered Sig/Bhavna Route PRN Reason Start Time Stop Time Status Last Admin Dose Admin (Versed 5 MG/ML 2ML inj) 5 mg ONCE ONCE IM 12/20/24 03:20 12/20/24 03:21 DC 12/20/24 03:23 5 MG (Haldol) 5 mg ONCE ONCE IM 12/20/24 03:20 12/20/24 03:21 DC 12/20/24 03:23 5 MG (Benadryl inj.) 50 mg ONCE ONCE IM 12/20/24 03:20 12/20/24 03:21 DC 12/20/24 03:22 50 MG Vital Signs 12/20/24 12/20/24 12/20/24 12/20/24 02:38 03:34 03:40 03:55 Temp 96.8 Pulse 99 73 69 Resp 15 16 16 B/P (MAP) 156/98 141/78 (99) 162/87 (112) Pulse Ox 99 94 94 O2 Flow Rate 0 Laboratory Tests Test 12/20/24 04:08 12/20/24 05:14 White Blood Count 7.8 Red Blood Count 4.77 Hemoglobin 13.6 Hematocrit 41.7 Mean Corpuscular Volume 87.5 Mean Corpuscular Hemoglobin 28.6 Mean Corpuscular Hemoglobin Concent 32.7 L Red Cell Distribution Width 15.7 H Platelet Count 421 Mean Platelet Volume 8.4 Neutrophils (%) (Auto) 53.7 Lymphocytes (%) (Auto) 28.8 Monocytes (%) (Auto) 10.2 Eosinophils (%) (Auto) 6.7 H Basophils (%) (Auto) 0.6 Neutrophils # (Auto) 4.2 Lymphocytes # (Auto) 2.3 Monocytes # (Auto) 0.8 Eosinophils # (Auto) 0.5 Basophils # (Auto) 0.0 CBC Comment Sodium Level 142 Potassium Level 3.8 Chloride Level 108 H Carbon Dioxide Level 28.3 Anion Gap 6 L Blood Urea Nitrogen 24 H Creatinine 1.23 H Estimated GFR/1.73 m2 44 BUN/Creatinine Ratio 19.5 Glucose Level 108 H Calcium Level 9.3 Albumin 2.9 L Thyroid Stimulating Hormone (TSH) 5.14 H Chemistry Comments Ethyl Alcohol Level < 10 Glucometer 116 H Medical Decision Making Findings Patient presents to the emergency room with depression and suicidal attempt. Labs reviewed and there was no evidence of major pathologic derangements and she is medically cleared for mental health evaluation. Patient requiring physical restraints as well as B 52/sedation with actual hanging attempt in the emergency room prompting CTA of neck which was reassuring. Departure Disposition: 30 STILL A PATIENT Impression: Primary Impression: Suicidal ideation Referrals: NO PRIMARY CARE PROVIDER (PCP) Critical Care Note Total Time (mins): 45 Critical Care Note The very real possibility of a deterioration of this patient's condition required the highest level of my preparedness for sudden, emergent intervention. I provided critical care services, which included medication orders, frequent reevaluations of the patient's condition and response to treatment, ordering and reviewing test results, and discussing the case with various consultants. Excludes time spent performing separately billable procedures. The critical care time associated with the care of the patient was 45 minutes not counting procedures Signature Scribe Signature: No scribe Attestation: The note accurately reflects work and decisions made by me.Mehul Haley MD 12/20/24 06:07 MEHUL HALEY MD December 20, 2024 03:43
[2024-12-20 03:55] VITALS: BP 162/87; PULSE 69; O2SAT 94
[2024-12-20 04:22] LABS: BASOPHILS % (AUTO) 0.6 % (0-1); EOSINOPHILS # (AUTO) 0.5 X10'3 (0-0.9); EOSINOPHILS % (AUTO) 6.7 % (0-6); HEMATOCRIT 41.7 % (35.0-45.0); HEMOGLOBIN 13.6 g/dl (12.0-16.0); LYMPHOCYTES # (AUTO) 2.3 X10'3 (1.1-4.8); LYMPHOCYTES % (AUTO) 28.8 % (21-51); MEAN CORPUSCULAR HEMOGLOBIN 28.6 PG (27.0-31.0); MEAN CORPUSCULAR HGB CONC 32.7 g/dL (33.0-36.5); MEAN CORPUSCULAR VOLUME 87.5 FL (78-98); MEAN PLATELET VOLUME 8.4 FL (7.4-10.4); MONOCYTES # (AUTO) 0.8 X10'3 (0-0.9); MONOCYTES % (AUTO) 10.2 % (2-12); NEUTROPHILS # (AUTO) 4.2 X10'3 (1.8-7.7); NEUTROPHILS % (AUTO) 53.7 % (42-75); PLATELET COUNT 421 X10'3 (140-440); RED BLOOD COUNT 4.77 X10'6 (4.20-5.60); RED CELL DISTRIBUTION WIDTH 15.7 % (11.5-14.5); WHITE BLOOD COUNT 7.8 X10'3 (4.5-11.0)
[2024-12-20 04:45] VITALS: RESP 16
[2024-12-20 04:46] LABS: ALBUMIN 2.9 G/DL (3.4-5.0); ANION GAP 6 (8-16); BLOOD UREA NITROGEN 24 MG/DL (7-18); BUN/CREATININE RATIO 19.5 (10.0-20.0); CALCIUM 9.3 MG/DL (8.5-10.1); CHLORIDE 108 MMOL/L (99-107); CREATININE 1.23 MG/DL (0.40-0.90); ETHANOL < 10 MG/DL (<10); GLUCOSE 108 MG/DL (70-104); POTASSIUM 3.8 MMOL/L (3.5-5.1); SODIUM 142 MMOL/L (135-145); THYROID STIMULATING HORMONE 5.14 ulU/ml (0.34-4.50); TOTAL CARBON DIOXIDE 28.3 MMOL/L (24-32); eCRCL 55 ML/MIN; eGFR 44 ML/MIN
[2024-12-20] MEDS ORDERED: iohexol 300mg/ml 100ml inj. ONE (04:54)
--- NOTE | 2024-12-20 05:59 | RADIOLOGY REPORT ---
Accession Number: [id number] Clinical History: Ligature rodgers Comparison: DI NECK FOR SOFT TISSUES on DOS: 10/10/24 Technique: CT of the neck was performed with 100 mL Omnipaque 300 intravenous contrast. Coronal and sagittal reformatted images are submitted. Radiation Dose Information: CT Dose: CTDI volume is 18.3 mGy. Dose-length product is 480.6 mGy*cm Findings: The nasopharynx, oropharynx, hypopharynx, esophagus, and larynx demonstrate normal patency and contour without evidence of a soft tissue mass at this time. The parotid, submandibular, and sublingual glands are normal in their size, shape, and attenuation wi thout evidence of calcification. The visualized oral tongue, tongue base, and floor of mouth regions demonstrate no obvious mass or ab normal enhancement. Evaluation of the lateral spaces of the neck demonstrates no mass. No evidence of lymphadenopathy. C alcified subcentimeter nodule in the right thyroid lobe. No fluid collection. Normal vascular enhancement for phase of imaging. Please note that the vertebral and carotid arteries are not optimally evaluated on this study timed for assessment of venous structures. Postsurgical changes at C5-C6 from anterior cervical discectomy and fusion. No prevertebral fluid. No acute osseous abnormality. Impression: 1. No acute process in the neck.
[2024-12-20 09:29] LABS: URINE AMPHETAMINE SCREEN NEGATIVE (Neg); URINE BARBITUATE SCREEN NEGATIVE (Neg); URINE BENZODIAZEPINES SCREEN POSITIVE (Neg); URINE CANNABINOID SCREEN NEGATIVE (Neg); URINE COCAINE SCREEN NEGATIVE (Neg); URINE METHADONE SCREEN NEGATIVE (Neg); URINE OPIATE SCREEN NEGATIVE (Neg); URINE PHENCYCLIDINE SCREEN NEGATIVE (Neg)
[2024-12-20] MEDS ORDERED: INSU100V13 SQ (09:36)
[2024-12-20] MEDS ORDERED: OXYC-150 PO (09:36)
[2024-12-20] MEDS ORDERED: INSU100V41 SUBCUT (09:36)
[2024-12-20] MEDS ORDERED: ROSU40TA89 PO (09:36)
[2024-12-20 09:44] LABS: BILIRUBIN,URINE NEGATIVE (Neg); CLARITY,URINE SLIGHTLY CLOUDY (Clear); COLOR,URINE YELLOW (Yellow); GLUCOSE, URINE >=1000 mg/dl (Neg); KETONES,URINE TRACE mg/dl (Neg); LEUKOCYTE ESTERASE ,URINE NEGATIVE (Neg); NITRITES, URINE NEGATIVE (Neg); OCCULT BLOOD,URINE TRACE-INTACT (Neg); PROTEIN,URINE >=300 mg/dl (Neg); UROBILINOGEN,URINE 0.2 E.U/dL (0.2-1.0)
[2024-12-20 09:45] LABS: UA COLLECTION TYPE CLN CATCH MIDSTREAM
[2024-12-20 09:56] LABS: BACTERIA,URINE FEW /HPF (Neg); RBC,URINE NONE SEEN /HPF (0-2); SQUAMOUS EPITHELIAL CELL,UR FEW /LPF (FEW); TRANSITIONAL EPI CELLS,URINE FEW /HPF
[2024-12-20 09:57] LABS: WBC CLUMPS,URINE FEW /HPF (NEGATIVE)
[2024-12-20] MEDS ORDERED: oxyCODONE/APAP 10/325mg tablet PO PRN (10:00)
[2024-12-20] MEDS ORDERED: LORazepam 1 MG tablet PO PRN (10:00)
[2024-12-20] MEDS ORDERED: lurasidone 60mg tablet PO SCH (17:00)
[2024-12-20] MEDS ORDERED: propranolol 10mg tablet PO SCH (20:00)
[2024-12-20] MEDS ORDERED: cloNIDine 0.1 mg tablet PO SCH (20:00)
[2024-12-20] MEDS ORDERED: non-formulary drug (Metformin HCl 1 TAB) PO SCH (20:00)
[2024-12-20] MEDS ORDERED: diltiazem SR 60mg capsule (twice daily) PO SCH (20:00)
[2024-12-20] MEDS ORDERED: hydrOXYzine 25 MG tablet PO SCH (21:00)
[2024-12-20] MEDS ORDERED: OLANZAPINE 5 MG TABLET PO SCH (21:00)
[2024-12-20] MEDS ORDERED: amLODIPine 5mg tablet PO SCH (21:00)
[2024-12-20] MEDS ORDERED: lamoTRIgine 100mg tablet PO SCH (21:00)
[2024-12-20] MEDS ORDERED: gabapentin 400mg capsule PO SCH (21:00)
[2024-12-20] MEDS ORDERED: atorvastatin 20mg tablet PO SCH (21:00)
[2024-12-21] MEDS ORDERED: METHYLPHENIDATE 30 MG PO SCH (08:00)
[2024-12-21] MEDS ORDERED: venlafaxine XR 75mg capsule (Q24H) PO SCH (08:00)
[2024-12-21] MEDS ORDERED: lamoTRIgine 100mg tablet PO SCH (08:00)
[2024-12-21] MEDS ORDERED: ezetimibe 10mg tablet PO SCH (08:00)
[2024-12-21] MEDS ORDERED: gabapentin 400mg capsule PO SCH (08:00)
== END 2024-12-20 13:23 | disposition home or self-care (01) ==
LOC: ER 02:34
DX: R45.851 Suicidal ideations (principal); I12.9 Hypertensive chronic kidney disease with stage 1 through stage 4 chronic kidney disease, or unspecified chronic kidney disease; T71.162A Asphyxiation due to hanging, intentional self-harm, initial encounter; N18.9 Chronic kidney disease, unspecified; E11.22 Type 2 diabetes mellitus with diabetic chronic kidney disease; E78.00 Pure hypercholesterolemia, unspecified; I48.91 Unspecified atrial fibrillation; F32.A Depression, unspecified; J44.9 Chronic obstructive pulmonary disease, unspecified; Z88.1 Allergy status to other antibiotic agents; Z88.8 Allergy status to other drugs, medicaments and biological substances; Z95.1 Presence of aortocoronary bypass graft; Z20.822 Contact with and (suspected) exposure to COVID-19
CPT/HCPCS: 36415; 70491; 80048; 80305; 81001; 82948; 84443; 85025; 87811; 96372; 99285; G0480; J1200; J1630; J2250; Q9967; 80320

== ENCOUNTER 2025-03-23 21:16 | Emergency (ER) | payer MEDICARE, MEDICAID ==
[~2025-03-23] VITALS: Ht 182.9 cm; Wt 99.0 kg
[~2025-03-23 21:16] MED LIST changes: +INSU100V13 SQ; +INSU100V41 SUBCUT; -LISI10TA27 PO; +OXYC-150 PO; +ROSU40TA89 PO
[2025-03-23 21:33] VITALS: BP 173/99; PULSE 76; O2SAT 95
--- NOTE | 2025-03-23 23:00 | Physician Documentation ---
History of Present Illness ~ Chief Complaint: Back Pain Stated Complaint: NECK AND BACK PAIN Time Seen by MD: 22:20 Primary Medical Doctor: JACINTO COLE Patient is a 64-year-old female that presents to the emergency department for medication refill until she can get to her doctor's office on Tuesday. Patient reports that she normally takes Percocet 10 and a muscle relaxer for chronic pain she has had multiple neck surgeries most recent surgery was in April of last year with a new slight injury in February she is currently being followed by ortho spine and her primary care provider. She reports that her medication ran out on Tuesday she tried to let her doctor's office know what they did not get back to her in time to fill her prescription and she is in significant pain. Medication Reconciliation Allergies: Coded Allergies: ciprofloxacin (Verified Allergy, Severe, 03/23/25) pineapple (Verified Allergy, Severe, CANNOT SWALLOW, 03/23/25) Uncoded Allergies: FISH (Allergy, Unknown, 01/16/14) Scheduled Amlodipine Besylate (Amlodipine Besylate), 1 TABLET PO HS, (Reported) Clonidine HCl (Clonidine HCl), 1 TAB PO BID, (Reported) Diltiazem HCl (Diltiazem ER), 2 CAP PO Q12H, (Reported) Ezetimibe (Ezetimibe), 1 TAB PO DAILY, (Reported) Gabapentin (Gabapentin), 1 CAP PO QAM, (Reported) Gabapentin (Gabapentin), 3 CAP PO HS, (Reported) Hydroxyzine Hcl (Atarax), 50 MG PO HS, (Reported) Insulin Degludec (Tresiba), 40 SUBCUT HS, (Reported) Lamotrigine (LaMICtal tablet), 2 TAB PO HS, (Reported) Lamotrigine* (Lamictal*), 1 TAB PO QAM, (Reported) Lurasidone HCl (Latuda), 1 TAB PO WS, (Reported) Metformin HCl (Metformin HCl), 1 TAB PO BID, (Reported) Methocarbamol (Methocarbamol), 1 TAB PO Q8H Methylphenidate HCl (Methylphenidate LA), 60 MG PO QAM, (Reported) Olanzapine (Olanzapine), 1 TAB PO HS, (Reported) Propranolol Hcl* (Inderal*), 1 TAB PO BID, (Reported) Rosuvastatin Calcium (Rosuvastatin Calcium), 1 TAB PO HS, (Reported) Venlafaxine HCl (Venlafaxine HCl ER), 150 MG PO QAM, (Reported) Scheduled PRN Insulin Aspart (Novolog), 1 UNITS SQ TIDWM PRN for Per Protocol, (Reported) Lorazepam (Ativan), 1 TAB PO DAILY PRN for anxiety, (Reported) Oxycodone HCl/Acetaminophen (Percocet 10-325 mg Tablet), 1 TAB PO QID PRN PRN for pain, (Reported) Past Medical History Past Medical History: *MACHINES TECHNICIAN*, Vertigo, *CARDIOVASCULAR*, Atrial Fibrillation, High Cholesterol, Hypertension, COPD, Pancreatitis, Chronic Kidney Disease, Diabetes, *MUSCULOSKELETAL*, Chronic Pain, Extremity Fracture, *CANCER*, *PSY CH*, Bipolar, Depression Past Surgical History: cancer surgery, orthopedic surgeries Other Past Surgical History: partial splenectomy Patient History: (CABG) Coronary artery bypass grafting FATHER, Name: ELIZABETH, , Age: Unknown, Cause: Cirrhosis, alcoholic, Not a twin (CAD) Coronary arteriosclerosis FAMILY/OTHER, Name: BROTHER Margaux PRESLEY, Born 01/30/57, Age: 68, Not a twin, Onset:50's - 60 (STINT PLACEMENT) (CHF) Congestive heart failure FATHER, Name: ELIZABETH, , Age: Unknown, Cause: Cirrhosis, alcoholic, Not a twin (COPD) Chronic obstructive lung disease FATHER, Name: ELIZABETH, , Age: Unknown, Cause: Cirrhosis, alcoholic, Not a twin (CVA) Cerebrovascular accident FATHER, Name: ELIZABETH, , Age: Unknown, Cause: Cirrhosis, alcoholic, Not a twin (Cancer) Malignant carcinoid tumor FATHER, Name: ELIZABETH, , Age: Unknown, Cause: Cirrhosis, alcoholic, Not a twin (DM Type 2) Diabetes mellitus type 2 FAMILY/OTHER, Name: BROTHER Margaux PRESLEY, Born 01/30/57, Age: 68, Not a twin, Onset:50's - 60 (DM Type1) Diabetes mellitus type 1 FATHER, Name: ELIZABETH, , Age: Unknown, Cause: Cirrhosis, alcoholic, Not a twin (NH) Myocardial infarction FATHER, Name: ELIZABETH, , Age: Unknown, Cause: Cirrhosis, alcoholic, Not a twin (PVD) Peripheral vascular disease FATHER, Name: ELIZABETH, , Age: Unknown, Cause: Cirrhosis, alcoholic, Not a twin (TIA) Transient ischemic attack FATHER, Name: ELIZABETH, , Age: Unknown, Cause: Cirrhosis, alcoholic, Not a twin Alzheimer's disease FATHER, Name: ELIZABETH, , Age: Unknown, Cause: Cirrhosis, alcoholic, Not a twin Aortic aneurysm FATHER, Name: ELIZABETH, , Age: Unknown, Cause: Cirrhosis, alcoholic, Not a twin Asthma FATHER, Name: ELIZABETH, , Age: Unknown, Cause: Cirrhosis, alcoholic, Not a twin Cardiac arrest FATHER, Name: ELIZABETH, , Age: Unknown, Cause: Cirrhosis, alcoholic, Not a twin FH: hepatic cirrhosis FATHER, Name: ELIZABETH, , Age: Unknown, Cause: Cirrhosis, alcoholic, Not a twin Hypercholesterolemia FATHER, Name: ELIZABETH, , Age: Unknown, Cause: Cirrhosis, alcoholic, Not a twin Alcohol Use: Sober Drug Use: marijuana, methamphetamine Lives with: Family Lives In: Home Occupation: employed Review of Systems ROS As stated above in the HPI, otherwise all systems are reviewed and negative. Physical Exam Physical Exam Vital Signs: Temperature: 98.1, Source: Temporal, Heart Rate: 76, Respiratory Rate: 16, BP: 173/99, Pulse Oximetry: 95, Weight: 98.960 Physical Exam VITALS: Reviewed and as above. GENERAL: Alert, no apparent distress. HEENT: Normocephalic, atraumatic, PERRL, EOMI, dry mucosa, no erythema RESPIRATORY: Lungs clear, normal breath sounds, no respiratory distress. CHEST: No accessory muscle use, no retractions CV: Regular rate, rhythm, no edema, no murmur, No: JVD GI: Soft, non-tender, bowels sounds present, no rebound, guarding, or rigidity BACK: No CVA tenderness, or swelling MUSCULOSKELETAL No deformities, no edema, tenderness with palpation of C-spine and shoulders bilaterally. SKIN: Warm and dry, no rash NEURO: Oriented x4, No motor or sensory deficit PSYCH: Normal mood and affect, no agitation Progress Results/Orders Results/Orders Orders - EMMANUEL RAMIREZ HOSIERY KNITTER Hydrocodone/Apap 10/325 (Ava 10/325mg (03/23/25 22:50) Baclofen Tablet (Lioresal Tablet) (03/23/25 22:50) Vital Signs 03/23/25 21:33 Temp 98.1 Pulse 76 Resp 16 B/P (MAP) 173/99 Pulse Ox 95 Medical Decision Making Findings Patient presents with chronic neck pain. Given history, exam and workup patient likely has pain secondary to degenerative changes associated with her chronic neck and back injuries. I have low suspicion for fracture, dislocation, significant ligamentous injury. Patient is we will follow up with her primary care provider on Tuesday. Provided with pain management here while in the emergency department. Prescription for pain medication x3 days until patient can follow up with her primary care provider provided. Differential Dx:Considerations: Include: AAA, Aortic dissection, , Appendicitis, Bowel obstruction, Cholelithiasis, Cholangitis, DJD, Ectopic , Fracture, Hepatitis, HNP, Musculoskeletal pain, Pancreatitis, Pyelonephritis, Strain, Urinary obstruction, Urolithiasis, Ovarian torsion, Other Departure Disposition: HOME / SELF CARE / HOMELESS Impression: Primary Impression: Back problem Additional Impressions: Chronic back pain Chronic primary pain of cervical spine Condition: Stable Discharge Instructions: Chronic Back Pain, Chronic Pain, Adult Additional Instructions: Patient presents with chronic neck pain. Given history, exam and workup patient likely has pain secondary to degenerative changes associated with her chronic neck and back injuries. I have low suspicion for fracture, dislocation, significant ligamentous injury. Patient is we will follow up with her primary care provider on Tuesday. Provided with pain management here while in the emergency department. Prescription for pain medication x3 days until patient can follow up with her primary care provider provided. Patient will be through primary care provider. Please return to the emergency department if you have any worsening or recurrent symptoms or any additional concerning symptoms that we discussed here today present. Referrals: NO PRIMARY CARE PROVIDER (PCP) Prescriptions Baclofen (Baclofen) 10 Mg Tablet 1 TAB PO Q8H for Chronic back pain for 2 Days, #6 TAB 0 Refills Prov: EMMANUEL RAMIREZ 03/23/25 Hydrocodone Bit/Acetaminophen 5/325 MG (Ava 5/325 MG) 5 Mg/325 Mg Tablet 1-2 TAB PO Q6H PRN for chronic pain for 2 Days, #16 TAB Prov: EMMANUEL RAMIREZ 03/23/25 Education Educated: Patient Educated regarding: diagnosis, treatment, need for follow up Signature Scribe Signature: A Attestation: Scribed for Emmanuel Ramirez by VISHAL Santos . 8/16/25 23:05 EMMANUEL RAMIREZ [facility] Mar 23, 2025 23:00
[2025-03-23] MEDS ORDERED: BACL10TA2 PO (23:05)
[2025-03-23] MEDS ORDERED: HYDR-3965 PO (23:05)
[2025-03-23 23:13] VITALS: RESP 16
[2025-03-23] MEDS: HYDROcodone/acetaminophen 10/325mg tab PO ONE (23:13)
[2025-03-23 23:15] VITALS: TEMP 98.1
== END 2025-03-23 23:17 | disposition home or self-care (01) ==
LOC: ER 21:17
DX: G89.29 Other chronic pain (principal); M54.9 Dorsalgia, unspecified; M54.2 Cervicalgia; I13.0 Hypertensive heart and chronic kidney disease with heart failure and stage 1 through stage 4 chronic kidney disease, or unspecified chronic kidney disease; I50.9 Heart failure, unspecified; N18.9 Chronic kidney disease, unspecified; E11.22 Type 2 diabetes mellitus with diabetic chronic kidney disease; E78.00 Pure hypercholesterolemia, unspecified; I48.91 Unspecified atrial fibrillation; J44.9 Chronic obstructive pulmonary disease, unspecified; Z88.1 Allergy status to other antibiotic agents; Z88.8 Allergy status to other drugs, medicaments and biological substances; Z95.1 Presence of aortocoronary bypass graft
CPT/HCPCS: 99283

== ENCOUNTER 2025-06-28 13:48 | Emergency (ER) | payer MEDICARE, MEDICAID ==
[~2025-06-28] VITALS: Ht 182.9 cm; Wt 112.9 kg
[~2025-06-28 13:48] MED LIST changes: +BACL10TA2 PO; -EZET10TA48 PO; +EZET10TA80 PO
[2025-06-28 14:04] VITALS: BP 133/82; PULSE 71; RESP 18; TEMP 98.7; O2SAT 94
--- NOTE | 2025-06-28 15:35 | Physician Documentation ---
History of Present Illness ~ Chief Complaint: Mouth Pain Stated Complaint: JAW PAIN Time Seen by MD: 14:19 Primary Medical Doctor: JACINTO COLE This is a 65-year-old female with a history of denture use who presents with right lower gum pain for the past week, patient reports pain is also in the right base of her tongue, patient reports no other acute symptoms or concerns in cluding no fever or shortness of breath. Patient reports that the pain makes it hard to chew or swallow pills though she is physically able to. Medication Reconciliation Allergies: Coded Allergies: ciprofloxacin (Verified Allergy, Severe, 06/28/25) pineapple (Verified Allergy, Severe, CANNOT SWALLOW, 03/23/25) Uncoded Allergies: FISH (Allergy, Unknown, 01/16/14) Scheduled Amlodipine Besylate (Amlodipine Besylate), 1 TABLET PO HS, (Reported) Baclofen (Baclofen), 1 TAB PO Q8H Clonidine HCl (Clonidine HCl), 1 TAB PO BID, (Reported) Diltiazem HCl (Diltiazem ER), 2 CAP PO Q12H, (Reported) Ezetimibe (Ezetimibe), 1 TAB PO DAILY, (Reported) Gabapentin (Gabapentin), 1 CAP PO QAM, (Reported) Gabapentin (Gabapentin), 3 CAP PO HS, (Reported) Hydroxyzine Hcl (Atarax), 50 MG PO HS, (Reported) Insulin Degludec (Tresiba), 40 SUBCUT HS, (Reported) Lamotrigine (LaMICtal tablet), 2 TAB PO HS, (Reported) Lamotrigine* (Lamictal*), 1 TAB PO QAM, (Reported) Lidocaine HCl (Lidocaine HCl Viscous), 5 ML PO Q8H Lurasidone HCl (Latuda), 1 TAB PO WS, (Reported) Metformin HCl (Metformin HCl), 1 TAB PO BID, (Reported) Methocarbamol (Methocarbamol), 1 TAB PO Q8H Methylphenidate HCl (Methylphenidate LA), 60 MG PO QAM, (Reported) Olanzapine (Olanzapine), 1 TAB PO HS, (Reported) Propranolol Hcl* (Inderal*), 1 TAB PO BID, (Reported) Rosuvastatin Calcium (Rosuvastatin Calcium), 1 TAB PO HS, (Reported) Venlafaxine HCl (Venlafaxine HCl ER), 150 MG PO QAM, (Reported) Scheduled PRN Acetaminophen (Acetaminophen), 2 TAB PO Q6H PRN PRN for pain or fever Insulin Aspart (Novolog), 1 UNITS SQ TIDWM PRN for Per Protocol, (Reported) Lorazepam (Ativan), 1 TAB PO DAILY PRN for anxiety, (Reported) Oxycodone HCl/Acetaminophen (Percocet 10-325 mg Tablet), 1 TAB PO QID PRN PRN for pain, (Reported) Past Medical History Past Medical History: *DISPUTE SPECIALIST*, Vertigo, *CARDIOVASCULAR*, Atrial Fibrillation, High Cholesterol, Hypertension, COPD, Pancreatitis, Chronic Kidney Disease, Diabetes, *MUSCULOSKELETAL*, Chronic Pain, Extremity Fracture, *CANCER*, *PSYCH*, Bipolar, Depression Past Surgical History: cancer surgery, orthopedic surgeries Other Past Surgical History: partial splenectomy Patient History: (CABG) Coronary artery bypass grafting FATHER, Name: ELIZABETH, , Age: Unknown, Cause: Cirrhosis, alcoholic, Not a twin (CAD) Coronary arteriosclerosis FAMILY/OTHER, Name: BROTHER Margaux PRESLEY, Born 01/30/57, Age: 68, Not a twin, Onset:50's - 60 (STINT PLACEMENT) (CHF) Congestive heart failure FATHER, Name: ELIZABETH, , Age: Unknown, Cause: Cirrhosis, alcoholic, Not a twin (COPD) Chronic obstructive lung disease FATHER, Name: ELIZABETH, , Age: Unknown, Cause: Cirrhosis, alcoholic, Not a twin (CVA) Cerebrovascular accident FATHER, Name: ELIZABETH, , Age: Unknown, Cause: Cirrhosis, alcoholic, Not a twin (Cancer) Malignant carcinoid tumor FATHER, Name: ELIZABETH, , Age: Unknown, Cause: Cirrhosis, alcoholic, Not a twin (DM Type 2) Diabetes mellitus type 2 FAMILY/OTHER, Name: BROTHER Margaux PRESLEY, Born 01/[birth year], Age: 68, Not a twin, Onset:50's - 60 (DM Type1) Diabetes mellitus type 1 FATHER, Name: ELIZABETH, , Age: Unknown, Cause: Cirrhosis, alcoholic, Not a twin (DE) Myocardial infarction FATHER, Name: ELIZABETH, , Age: Unknown, Cause: Cirrhosis, alcoholic, Not a twin (PVD) Peripheral vascular disease FATHER, Name: ELIZABETH, , Age: Unknown, Cause: Cirrhosis, alcoholic, Not a twin (TIA) Transient ischemic attack FATHER, Name: ELIZABETH, , Age: Unknown, Cause: Cirrhosis, alcoholic, Not a twin Alzheimer's disease FATHER, Name: ELIZABETH, , Age: Unknown, Cause: Cirrhosis, alcoholic, Not a twin Aortic aneurysm FATHER, Name: ELIZABETH, , Age: Unknown, Cause: Cirrhosis, alcoholic, Not a twin Asthma FATHER, Name: ELIZABETH, , Age: Unknown, Cause: Cirrhosis, alcoholic, Not a twin Cardiac arrest FATHER, Name: ELIZABETH, , Age: Unknown, Cause: Cirrhosis, alcoholic, Not a twin FH: hepatic cirrhosis FATHER, Name: ELIZABETH, , Age: Unknown, Cause: Cirrhosis, alcoholic, Not a twin Hypercholesterolemia FATHER, Name: ELIZABETH, , Age: Unknown, Cause: Cirrhosis, alcoholic, Not a twin Alcohol Use: Sober Drug Use: marijuana, methamphetamine Lives with: Family Lives In: Home Occupation: employed Review of Systems ROS As stated above in the HPI, otherwise all systems are reviewed and negative. Physical Exam Vital Signs: Temperature: 98.7, Source: Oral, Heart Rate: 71, Respiratory Rate: 18, BP: 133/82, Pulse Oximetry: 94, Weight: 112.900 Oxygen Flow Rate: 0 Physical Exam VITALS: Reviewed and as above. GENERAL: Alert, nontoxic appearing, no apparent distress. HEENT: Right rear lower gums tender to palpation, no fluctuance, no erythema, No facial swelling, no submandibular swelling, no elevation of the tongue, no drooling RESPIRATORY: No increased work of breathing, no respiratory distress, speaking in full clear sentences Progress Results/Orders Results/Orders Completed Orders - SIRIA LATHAM PAIN MANAGEMENT NURSE Acetaminophen 325mg Tablet (Tylenol Tabl (06/28/25 15:30) Lidocaine 2% Viscous (Xylocaine 2% Visco (06/28/25 15:30) Vital Signs 06/28/25 14:04 Temp 98.7 Pulse 71 Resp 18 B/P (MAP) 133/82 Pulse Ox 94 O2 Flow Rate 0 Medical Decision Making Additional information obtaine: N/A Findings This well appearing 55-year-old female who wears dentures presented with dental pain to the right rear lower gums. Based on history and physical exam I have low clinical suspicion for peritonsillar abscess, uvulitis, deep tissue space infe ction of the head/neck, or impending airway compromise. There was no submandibular swelling or elevation of the tongue, the uvula was midline, patient is able to swallow fluids and secretion without difficulty, there is no increased work of breathing or noisy breathing. As there was no swelling, erythema, or fluctuance on exam and no facial swelling I have low suspicion for infectious cause of pain therefore antibiotics not indicated. I have low suspicion that the patient's dental pain is related to infection, cancer, or acute trauma. Pain control with non-narcotic medications is appropriate at this time. Ear Diff. Dx: Considerations: Unlikely: Abrasion, Cerumen impaction, Foreign body, Otitis externa, Barotrauma, Otitis media, Perforation, Referred pain- dental, Referred pain-pharyngitis, Referred pain-sinusitis, Referred pain-TMJ syn., Tympanic Membrane Injury, Other Eye Diff. Dx: Considerations: Unlikely: Chalazoin, Conjuctivits-allergic, Conjuctivitis-bacterial, Conjuctivits-chlamydial, Conjuctivitis-viral, Corneal abrasion, Corneal laceration, Corneal ulceration, Foreign body-conjuctiva, Foreign body-corneal, Foreign body-intraocular, Foreign body-lid, Glaucoma, Globe rupture, Hordeolum, Iritis, Orbital cellulitis, Periobital cellulitis, Retinal artery occulsion, Retinal vein occlusion, Rust ring, Subconjunctival hem, Ultraviolet keratitis, Uveitis, Vitreous hemorrhage, Other Nose Diff. Dx: Considerations: Unlikely: Abrasion, Anterior nasal bleed, Avulsion, Contusion, Coagulopathy, Fracture-nasal bone, Fracture-septum, Hypertension, Laceration, Other, Posterior nasal bleed, Retained foreign body, Septal hematoma Tooth Diff. Dx: Considerations: Include: Alveolar fracture, Aveolar osteitis, ANUG, Facial cellulitis, Periapical abscess, Periodontal abscess, Pulpitis, Trigeminal neuralgia, Tooth-avulsion, Tooth-eruption, Tooth-fracture, Tooth- subluxation, Other (Kuldip's angina) Throat Diff Dx: Considerations: Unlikely: AIDS, Epiglottitis, Esophageal candidiasis, Hand foot mouth disease, Herpangina, Herpetic stomatitis, Herpes s implex, Infection mononucleosis, Immunodeficiency, Kuldip's angina, Peritonsillar abscess, Peritonsillar cellulitis, Pharyngitis-diphtheria, Pharyngitis-strepococcal, Pharyngitis-viral, Thrush, URI, Other Departure Time of Disposition: 15:33 Disposition: 01 HOME / SELF CARE / HOMELESS Impression: Primary Impression: Pain in gums Condition: Improved Discharge Instructions: Mouth Injury, Generic Additional Instructions: There was not a clear cause of your gum and tongue pain, you will need to follow up with a dentist for further evaluation. Please use the prescribed Tylenol for pain. Please follow up with your primary care provider in the next few days. Please return to the emergency department for any new or worsening concerning symptoms. Referrals: NO PRIMARY CARE PROVIDER (PCP) Prescriptions Lidocaine HCl (Lidocaine HCl Viscous) 2 % Solution 5 ML PO Q8H for mouth sore pain for 6 Days, #100 ML 0 Refills Prov: SIRIA LATHAM 06/28/25 Acetaminophen (Acetaminophen) 500 Mg Tablet 2 TAB PO Q6H PRN PRN for pain or fever for 7 Days, #60 TAB Prov: SIRIA LATHAM 06/28/25 Education Educated: Patient Educated regarding: diagnosis, treatment, prognosis, need for follow up Signature Scribe Signature: No scribe Attestation: The note accurately reflects work and decisions made by me.VISHAL Arauz 06/29/25 02:01 SIRIA LATHAM Jun 28, 2025 15:35
[2025-06-28] MEDS ORDERED: ACET-76 PO (15:38)
[2025-06-28] MEDS: LIDOcaine 2% Viscous 15ml cup MM ONE (15:39)
[2025-06-28] MEDS ORDERED: LIDO15SO9 PO (17:21)
== END 2025-06-28 16:20 | disposition home or self-care (01) ==
LOC: ER 13:49
DX: K08.89 Other specified disorders of teeth and supporting structures (principal); E11.22 Type 2 diabetes mellitus with diabetic chronic kidney disease; I13.0 Hypertensive heart and chronic kidney disease with heart failure and stage 1 through stage 4 chronic kidney disease, or unspecified chronic kidney disease; N18.9 Chronic kidney disease, unspecified; E78.00 Pure hypercholesterolemia, unspecified; F12.90 Cannabis use, unspecified, uncomplicated; F15.90 Other stimulant use, unspecified, uncomplicated; F31.9 Bipolar disorder, unspecified; G89.29 Other chronic pain; I48.91 Unspecified atrial fibrillation; J44.9 Chronic obstructive pulmonary disease, unspecified; Z87.19 Personal history of other diseases of the digestive system; Z88.1 Allergy status to other antibiotic agents; Z95.1 Presence of aortocoronary bypass graft; Z79.4 Long term (current) use of insulin; Z79.899 Other long term (current) drug therapy; Z98.890 Other specified postprocedural states
CPT/HCPCS: 99283